=== PATIENT | female | born 1990 ===

== ENCOUNTER 2021-01-17 08:35 | Emergency (ER) | payer MEDICAID, OTHER, SELFPAY ==
--- NOTE | ~2021-01-17 | XR_ITS ---
EXAMINATION: XR CHEST CLINICAL INFORMATION: Fevers and cough. COMPARISON: None TECHNIQUE: Frontal view of the chest was obtained. FINDINGS: No significant abnormality is noted involving the heart, lungs, mediastinum, bony thorax or soft tissues. XR/XR chest 1V IMPRESSION: Unremarkable chest exam.
[2021-01-17 09:35] VITALS: BP 133/97; PULSE 100; RESP 18; TEMP 37.6; O2SAT 100; BMI 50.2
--- NOTE | 2021-01-17 10:42 | ED.URI ---
HPI - URI/Sore Throat General Chief Complaint: Upper Respiratory Symptoms Stated Complaint: flu like symptoms Time Seen by Provider: 01/17/21 09:36 Source: patient Mode of arrival: ambulatory Limitations: no limitations History of Present Illness MD elicited complaint: fever, cough, sore throat and other (Intermittent headaches) Onset (ago): day(s) (Two days) Consistency: constant and progressively worsening Severity: moderate Description of mucous: clear and watery Able to tolerate fluids by mouth: Yes Exacerbating factors: swallowing and deep breaths Relieving factors: nothing Context: recent travel (Here visiting family from outside country) Associated symptoms: denies other symptoms Treatments prior to arrival: none Related Data Allergies Allergy/AdvReac Type Severity Reaction Status Date / Time No Known Allergies Allergy Verified 01/17/21 09:38 Review of Systems Review of Systems: Constitutional : Positive fevers/chills/fatigue/malaise ENT/Mouth : Positive sore throat, No runny nose Eyes: No Discharge Cardiovascular : No Chest Pain, No SOB Respiratory : Positive Cough, No Sputum, No Wheezing, No Smoke Exposure, No Dyspnea Gastrointestinal : No Nausea, No Vomiting, No Diarrhea Genitourinary : No irregular bleeding, No Dysuria, No Urinary Frequency, No Hematuria, No Urinary Incontinence, No Urgency, No Flank Pain, Musculoskeletal : No Myalgia Skin : No rash Neuro : No Headache Yes all other systems are reviewed and are negative [facility] Past Medical History Attestation statement: The following information was validated with the patient. Medical History No known health problems Social History Social History Advance Directives: Yes Advance Directives Information Provided: Yes Advance Directives on File: No Physical Exam Vital Signs: Vital Signs: Last Vital Signs Temp 99.7 F 01/17/21 09:35 Pulse 100 01/17/21 09:35 Resp 18 01/17/21 09:35 BP 133/97 H 01/17/21 09:35 Pulse Ox 100 01/17/21 09:35 Body Mass Index 50.2 vital signs have been reviewed as normal and appeared to be correct. Blood pressure normal. Heart rate normal. Respiration rate normal. Temperature normal. Oxygen saturation normal. Appearance: Alert. Oriented X3. No acute distress. Head: Normal external exam. Normocephalic. Atraumatic. Eyes: PERRLA. EOMI. Conjunctiva and sclera normal. Eyelids normal. ENT: EAC normal. TM's Normal. Pharynx normal. Uvula midline. Moist mucous membranes. No trismus noted. No drooling noted. No muffled voice noted. Neck: Normal inspection. Neck supple. FROM. No adenopathy. Thyroid Normal. No meningeal signs. No neck mass noted. CVS: Normal heart rate and rhythm. Heart sound normal. Pulses normal throughout. No murmurs/rales/gallops. Respiratory: No respiratory distress. Painless inspiration. Breath sounds normal. No wheezes/rales/rhonchi noted. Chest nontender. No accessory muscle usage noted or decreased air movement noted. Back: Full range of motion noted. No rashes/lesion/induration/fluctuance or signs of infection noted. Skin: Skin warm and dry. Normal skin color. Normal skin turgor. No rashes/lesions/lacerations noted. Extremities: Extremities exhibit normal range of motion. Extremities nontender. Neuro: Oriented X 3. No motor deficit. No sensory deficit. Reflexes normal. Normal steady gait. No focal neuro deficits noted. Course Course Course Narrative: 30-year-old female who is visiting from outside country presenting to the ED with complaints of URI symptoms which include intermittent headaches, fevers, chills, fatigue, malaise, body aches and a dry cough for the past 2 days worse today. Denies any sick contacts. On exam patient is alert and oriented x3. Not in any acute distress. Lungs clear to auscultation. CV RRR. Chest x-ray obtained and negative for any acute processes. COVID/RSV/flu/rapid strep pending at this time. Will DC home with symptomatic treatment along with instructions to return if any new or worsening symptoms to self isolate. Patient understands agrees with this plan. MDM - URI/Sore Throat Medical Records Attestation: I reviewed the patient's medical records. Lab Data Attestation: I reviewed the patient's lab results. Imaging Data Chest x-ray: Attestation: I personally reviewed and interpreted this imaging study as follows: Radiologist's impression: FINDINGS: No significant abnormality is noted involving the heart, lungs, mediastinum, bony thorax or soft tissues. XR/XR chest 1V IMPRESSION: Unremarkable chest exam. Discharge Plan Discharge Clinical Impression: Upper respiratory infection Patient Disposition: Home, Self-Care Instructions: Upper Respiratory Infection (ED) Additional Instructions: Based on your symptoms and history we have sent a COVID-19. Although your RESULT IS PENDING at this time. RESULTS should return within 4 hours. At this time you will be contacted with either NEGATIVE OR POSITIVE results. -Please wait until we contact you for your results. At this time you will be okay for discharge. Please plan for self quarantine for up to 14 days. Do not expose yourself to others. You may not go to work. If testing does come back negative you may return to activities as long as you are no longer having any symptoms for at least 3 days. Please continue to follow cold instructions and wash your hands frequently. You may take Tylenol as directed on the bottle for pain or fever. Patient seen in the emergency department on 01/17/2021 and should be excused from work until negative test results AND until 72 hours without any symptoms AND at least 10 days have passed since symptoms first appeared or since last exposure to COVID-19 positive patient CDC Guidelines for home isolation: - Stay away from others - WEAR A MASK if you are sick AND STAY HOME - Cover your mouth and nose with a tissue when you cough or sneeze. Dispose of tissues in a lined trash can and wash your hands immediately with soap and water for at least 20 seconds. If soap and water are not available, clean hands with alcohol-based hand wash oil cooler operator that contains at least 60% alcohol. - Clean your hands often with soap and water for at least 20 seconds - Avoid touching your eyes, nose and mouth with unwashed hands - Do not share dishes, drinking glasses, cups, eating utensils, towels, or bedding with other people in your home. After using these items, wash them thoroughly with soap and water or put in the motion picture critic. - Clean high-touch surfaces in your isolation area ( sick room and bathroom) every day; let a caregiver clean and disinfect high-touch surfaces in other areas of the home. Clean the area or item with soap and water or another detergent if it is dirty. Then, use a household disinfectant. - Limit contact with pets and animals: If you must care for a pet, wash your hands before and after interacting with them). Referrals: Physician,None [Primary Care Provider] - 2 days (your pcp) Stand Alone Forms: Work/School Release Print Language: Sinhala
[2021-01-17] MEDS: Acetaminophen 325 MG TABLET 975 MG PO (11:11)
[2021-01-17 12:00] LABS: Influenza A PCR NEGATIVE (Negative); Influenza B PCR NEGATIVE (Negative); Resp Syncy Virus RNA Qual PCR NEGATIVE (Negative); SARS COV2 PCR INHOUSE POSITIVE (Negative)
[2021-01-17 13:34] LABS: IDNOW Serial# 9DD0AD1C; Strep A Nucleic Acid Negative (Negative)
== END 2021-01-17 11:23 | disposition home or self-care (01) ==
PROVIDERS: Physician Assistant Medical; Emergency Provider Emergency Medicine
DX: U07.1 COVID-19 (principal); J06.9 Acute upper respiratory infection, unspecified; R50.9 Fever, unspecified
CPT/HCPCS: 0241U; 36415; 71045; 87651; 99283

== ENCOUNTER 2021-01-26 11:28 | Outpatient (REF) | payer MEDICAID, OTHER, SELFPAY ==
[2021-01-26 12:33] LABS: COVID-19 Test Positive (Negative)
== END 2021-01-26 11:29 | disposition home or self-care (01) ==
LOC: HO.LAB 11:28
PROVIDERS: Visit Provider Internal Medicine
DX: Z20.822 Contact with and (suspected) exposure to COVID-19 (principal)
CPT/HCPCS: 36415; 87635; C9803

== ENCOUNTER 2021-04-10 10:20 | Emergency (ER) | payer MEDICAID, OTHER, SELFPAY ==
[2021-04-10 11:01] VITALS: BP 120/82; PULSE 92; RESP 18; TEMP 36.7; O2SAT 98; BMI 25.2
[2021-04-10 11:59] LABS: COVID-19 Test Negative (Negative); IDNOW Serial# 9DD0AD1C
--- NOTE | 2021-04-10 12:34 | ED.URI ---
HPI - URI/Sore Throat General Chief Complaint: Upper Respiratory Symptoms Stated Complaint: cold symptoms Time Seen by Provider: 04/10/21 12:15 Source: patient Mode of arrival: ambulatory History of Present Illness HPI Narrative: 30-year-old female presenting to the ED complaining of nasal congestion, rhinorrhea, sore throat, dry cough, headache, subjective fever, myalgias, chest discomfort when coughing since yesterday. Reports sick contacts at home. Denies recent travel, CP, SOB, nausea/vomiting, LE edema, history blood clots, cigarette smoking MD elicited complaint: fever, cough, sore throat, rhinorrhea and nasal congestion Related Data Previous Rx's Medication Instructions Recorded benzonatate 200 mg capsule 200 mg PO TID PRN #20 cap 04/10/21 fluticasone propionate 50 2 spray INTRANASAL DAILY #16 g 04/10/21 mcg/actuation nasal spray,suspension (Flonase Allergy Relief) Allergies Allergy/AdvReac Type Severity Reaction Status Date / Time No Known Allergies Allergy Verified 01/17/21 09:38 Review of Systems Review of Systems: Constitutional: No Fever, No Chills ENT/Mouth: No Ear Pain, + Nasal Congestion, No Sinus Pain, No Hoarseness, + sore throat, + Rhinorrhea, No Swallowing Difficulty Cardiovascular: No Chest Pain, No SOB Respiratory: + Cough, No Sputum, No Wheezing Gastrointestinal: No Nausea, No Vomiting, No Diarrhea, No Abdominal pain Genitourinary: No Dysuria, No Urinary Frequency, No Hematuria, No Flank Pain Musculoskeletal: No joint pain, No Myalgias, No Joint Swelling Skin: No Skin Lesions, No rash Neuro: No Weakness Yes all other systems are reviewed and are negative [facility] Past Medical History Attestation statement: The following information was validated with the patient. Medical History No known health problems Social History Social History Advance Directives: No Advance Directives Information Provided: Yes Patient : No Physical Exam Vital Signs: Vital Signs: Last Vital Signs Temp 98.1 F 04/10/21 11:01 Pulse 92 04/10/21 11:01 Resp 18 04/10/21 11:01 BP 120/82 04/10/21 11:01 Pulse Ox 98 04/10/21 11:01 Body Mass Index 25.2 Const: General: cooperative, healthy appearing and no acute distress Orientation/consciousness: patient oriented x3 Limitations: no limitations HENMT: Head: Yes normal to inspection Ears: hearing grossly normal bilaterally, external ears normal, TM's normal bilaterally and mastoids normal General nose exam: Normal external nose present Face and sinus: Yes normal facial exam Mouth: Normal oral and palatal mucosa present Throat: Yes posterior oropharynx normal, Yes tonsils normal, Yes uvula midline, No peritonsillar mass and No uvular edema Eyes: General: appearance normal, both eyes and all related structures EOM: EOMs intact bilaterally Neck: Neck: Yes normal visual inspection, Yes no lymphadenopathy, Yes no meningeal signs and Yes supple Resp: Effort & Inspection: normal respiratory effort Auscultation: clear to auscultation bilaterally, no rales, no rhonchi and no wheezes Cardio: Rate: regular rate Heart sounds: S1 normal heart sound present and S2 normal heart sound present Skin: Rashes: no rashes Wounds: no wounds Neuro: General: patient oriented x3 and no meningeal signs Gait exam (Neuro): Normal gait present Extrem: General: Yes normal to inspection Course Course Course Narrative: -COVID-19 negative -1317--rapid strep pending at this time. Will call patient with result if positive MDM - URI/Sore Throat MDM Narrative Medical decision making narrative: 30-year-old female presenting to the ED complaining of nasal congestion, rhinorrhea, sore throat, dry cough, headache, subjective fever, myalgias, chest discomfort when coughing since yesterday. On exam vital signs stable, NAD, nontoxic, lungs CTA, TMs WNL, oropharynx WNL. Concern for viral syndrome/COVID-19 versus strep pharyngitis. Low concern for pneumonia, PE, ACS Plan: COVID-19, rapid strep Medical Records Attestation: I reviewed the patient's medical records. Lab Data Attestation: I reviewed the patient's lab results. Labs: Lab Results 04/10/21 04/10/21 Range/Units 11:30 12:32 COVID-19 (LATOYA) Negative (Negative) COVID-19 Clin Com See Note S. pyogenes GrpA KANIKA Negative (Negative) Discharge Plan Discharge Clinical Impression: Upper respiratory infection Qualifiers: URI type: unspecified URI Qualified Code(s): J06.9 - Acute upper respiratory infection, unspecified Patient Disposition: Home, Self-Care Instructions: Upper Respiratory Infection (ED) Additional Instructions: You have a viral syndrome, your rapid strep is pending at this time I will call you with positive results only Please stay hydrated at home. Tessalon Perles for cough, take as needed Flonase as a nasal decongestant Please follow-up with her doctor You tested negative for COVID-19 If her symptoms persist or worsen, he developed fever unresolved with medications, constant worsening cough/shortness breath or chest pain please return to the ED Prescriptions: New benzonatate 200 mg capsule 200 mg PO TID PRN (Reason: cough) Qty: 20 RF: 0 fluticasone propionate [Flonase Allergy Relief] 50 mcg/actuation spray,suspension 2 spray intranasal DAILY Qty: 16 RF: 0 Referrals: Physician,Unknown J [Primary Care Provider] - 2 days Interventions: ED Discharge Assessment Last Done: 04/10/21 13:44 Discharge Date/Time: 04/10/21 13:45
[2021-04-10 14:58] LABS: IDNOW Serial# 9DD0AD1C; Strep A Nucleic Acid Negative (Negative)
== END 2021-04-10 13:45 | disposition home or self-care (01) ==
PROVIDERS: Physician Assistant; Emergency Provider Emergency Medicine
DX: J06.9 Acute upper respiratory infection, unspecified (principal); Z20.822 Contact with and (suspected) exposure to COVID-19
CPT/HCPCS: 36415; 87635; 87651; 99283

== ENCOUNTER 2021-08-28 08:31 | Emergency (ER) | payer MEDICAID, OTHER, SELFPAY ==
--- NOTE | ~2021-08-28 | XR_ITS ---
EXAMINATION: XR CHEST CLINICAL INFORMATION: Shortness of breath and chest pain COMPARISON: 01/17/2021 TECHNIQUE: 2 views of the chest were obtained. FINDINGS: The lungs are well expanded. There is no focal consolidation, edema, or effusion. No pneumothorax. The cardiomediastinal silhouette is within normal limits. No acute osseous abnormality. XR/XR chest 2V IMPRESSION: Clear lungs.
[2021-08-28 09:11] VITALS: BP 130/92; PULSE 93; RESP 18; TEMP 36.6; O2SAT 97; BMI 22.1
--- NOTE | 2021-08-28 09:39 | ECG_ITS ---
Test Reason : ABD PAIN Blood Pressure : / mmHG Vent. Rate : 071 BPM Atrial Rate : 071 BPM P-R Int : 136 ms QRS Dur : 070 ms QT Int : 376 ms P-R-T Axes : 059 037 042 degrees QTc Int : 408 ms Normal sinus rhythm with sinus arrhythmia Normal ECG No previous ECGs available Referred By: Lily Franklin Electronically Signed By:MICHELLE VAZQUEZ MD
--- NOTE | 2021-08-28 09:44 | ED_ITS ---
HPI - Chest Pain General Chief Complaint: Abdominal Pain Stated Complaint: Abd pain/SOB Time Seen by Provider: 08/28/21 09:26 Source: patient Mode of arrival: ambulatory Limitations: no limitations History of Present Illness HPI narrative: 31-year-old female with history of seasonal allergies resents to the ER with sudden onset of lower middle chest pain that started last night. She states that the she got up to use the bathroom in the middle the night she had this constant, sharp, nonradiating pain in the lower portion of her central chest. It is assocated with shortness of breath and anxiety. She reports the pain is 10/10. She denies any abdominal pain, nausea, vomiting. No fever or chills. She had a runny nose a few days ago which she attributed to her seasonal allergies. Otherwise no URI symptoms. She is vaccinated for COVID and the flu. Known sick contacts. She has never had pain like this before. MD complaint: chest pain Onset (ago): day(s) (1) Timing of current episode: constant Prior episodes: No Onset: during rest Pain location: substernal Pain radiation: none Severity: severe Pain scale (0-10): 10 Quality: sharp Relieving factors: nothing Exacerbating factors: nothing Associated symptoms: dyspnea Risk Factors Coronary artery disease risk factors: none Thoracic aortic dissection risk factors: none Related Data On Oral Contraceptives: No Previous Rx's Medication Instructions Recorded benzonatate 200 mg capsule 200 mg PO TID PRN #20 cap 04/10/21 fluticasone propionate 50 2 spray INTRANASAL DAILY #16 g 04/10/21 mcg/actuation nasal spray,suspension (Flonase Allergy Relief) pantoprazole 40 mg tablet,delayed 40 mg PO DAILY #14 tab 08/28/21 release (Protonix) Allergies Allergy/AdvReac Type Severity Reaction Status Date / Time No Known Allergies Allergy Verified 01/17/21 09:38 Review of Systems Review of Systems: Constitutional: No Fever, No Chills ENT/Mouth: No sore throat, No Rhinorrhea, No Swallowing Difficulty Eyes: No Eye Pain, No Swelling, No Redness Cardiovascular: + Chest Pain, + SOB, No Orthopnea, No Edema Respiratory: No Cough, No Sputum, No Wheezing, No dyspnea Gastrointestinal: No Nausea, No Vomiting, No Diarrhea, No abdominal Pain, No Hematochezia, No Melena Genitourinary: No Dysuria, No Urinary Frequency, No Hematuria Musculoskeletal: No joint pain, No Myalgias Skin: No Skin Lesions, No rash Neuro: No Weakness, No Numbness, No Dizziness, No Headache Psych: + Anxiety/Panic, No Depression Heme/Lymph: No Bruising, No Lymphadenopathy Endocrine: No Polyuria, No Polydipsia [facility] Past Medical History Medical History No known health problems Social History Social History Alcohol intake: current Alcohol intake frequency: holidays/special occasions only Alcohol type: beer Patient Tobacco Use Status: Never used Tobacco Use of substances other than those prescribed or required for medical reasons: No Advance Directives: No Patient : No Physical Exam Vital Signs: Vital Signs: Last Vital Signs Temp 98.0 F 08/28/21 11:29 Pulse 77 08/28/21 11:29 Resp 16 08/28/21 11:29 BP 126/86 08/28/21 11:29 Pulse Ox 97 08/28/21 11:29 BMI result Body Mass Index 22.1 Appearance: Alert. Oriented X3. No acute distress. Eyes: Pupils equal, round and reactive to light. ENT: Pharynx normal. Neck: Normal inspection. Neck supple. CVS: Normal heart rate and rhythm. Pulses normal. Tenderness of the distal sternum. Respiratory: No respiratory distress. Breath sounds normal. Abdomen: Soft and nontender. +BS x4 Skin: Skin warm and dry. Normal skin color. Normal skin turgor. No rashes. Extremities: No lower extremity edema. No calf swelling or tenderness. Neuro: Oriented X 3. No motor deficit. No sensory deficit. Course Course Course Narrative: 31 y/o female presenting with 10/10 lower chest pain and SOB that started last night in the middle of the night. No abdominal tenderness. No PE risk factors. Most likely reflex given history and exam - will treat with GI cocktail and reassess. Will check CXR, EKG and basic lab workup. Reevaluation(s) Reevaluation #1: CXR clear. EKG normal. Labs normal. She feels significant improvement after GI cocktail. Will plan to d/c home with PPI and diet modifications. Plan dw patient who is in agreement, stable for d/c home. MDM - Chest Pain Medical Records Data Attestation: I reviewed the patient's medical records. Lab Data Attestation: I reviewed the patient's lab results. Result diagrams: 08/28/21 10:12 08/28/21 10:12 Labs: Lab Results 08/28/21 08/28/21 08/28/21 Range/Units 10:12 10:12 11:28 WBC 8.5 (4.8-10.8) X10*3/uL RBC 4.65 (4.20-5.50) X10*6/uL Hgb 13.4 (12.0-16.0) g/dl Hct 40.7 (37.0-47.0) % MCV 87.5 (80.0-98.0) fL MCH 28.8 (27.0-33.0) pg MCHC 32.9 (31.0-35.0) g/dl RDW 12.0 (11.0-16.0) % Plt Count 297 (160-400) X10*3/uL MPV 10.5 (9.4-12.3) fL Immature Gran % (Auto) 0.5 H (0.0-0.4) % Neut % (Auto) 62.0 (45-73) % Lymph % (Auto) 26.3 (20-40) % [place] % (Auto) 6.5 (2-11) % Eos % (Auto) 4.1 H (0-4) % Baso % (Auto) 0.6 (0-2) % Lymph # (Auto) 2.2 (1.2-4.9) X10*3/uL [place] # (Auto) 0.6 (0.1-1.2) X10*3/uL Eos # (Auto) 0.4 (0.0-0.4) X10*3/uL Baso # (Auto) 0.1 (0.0-0.2) X10*3/uL Abs Immat Gran (auto) 0.04 H (0.00-0.03) X10*3/uL Absolute Neuts (auto) 5.3 (2.0-8.3) x10*3/uL Absolute Nucleated RBC 0.000 (0.0-0.012) X10*3/uL Nucleated RBC % (auto) 0.0 (0.0-0.2) /100WBC Sodium 138 (135-145) mmol/L Potassium 3.9 (3.3-5.1) mmol/L Chloride 107 (96-108) mmol/L Carbon Dioxide 26 (22-29) mmol/L Anion Gap 9 L (12-20) BUN 14 (9-16) mg/dL Creatinine 0.81 (0.5-1.4) mg/dL Estim Creat Clear Calc 73.5 Estimated GFR > 60 Random Glucose 110 (60-115) mg/dL Calcium 9.5 (8.4-10.2) mg/dL Magnesium 2.5 (1.6-2.6) mg/dL Total Bilirubin 0.3 (0.0-1.0) mg/dL Direct Bilirubin < 0.2 (0.0-0.5) mg/dL AST 15 (5-31) U/L ALT 17 (0-31) U/L Alkaline Phosphatase 81 (39-117) U/L Total Protein 7.7 (6.5-8.0) g/dL Albumin 4.3 (3.5-5.0) g/dL Lipase 36 (8-78) U/L Urine Color YELLOW Urine Appearance CLEAR Urine pH 6.0 (5.0-8.0) Ur Specific Cecil >= 1.030 H (1.005-1.025) Urine Protein NEG (NEG-TRACE) MG/DL Urine Glucose (UA) NEG (NEG) MG/DL Urine Ketones NEG (NEG) MG/DL Urine Blood TRACE (NEG) Urine Nitrite NEG (NEG) Ur Leukocyte Esterase NEG (NEG) Urine RBC 0-2 (0) /HPF Urine WBC 0 (0-4) /HPF Ur Squamous Epith Cells 1+ /LPF Urine Bacteria NONE /LPF Urine Test (NEGATIVE) 08/28/21 Range/Units 11:28 WBC (4.8-10.8) X10*3/uL RBC (4.20-5.50) X10*6/uL Hgb (12.0-16.0) g/dl Hct (37.0-47.0) % MCV (80.0-98.0) fL MCH (27.0-33.0) pg MCHC (31.0-35.0) g/dl RDW (11.0-16.0) % Plt Count (160-400) X10*3/uL MPV (9.4-12.3) fL Immature Gran % (Auto) (0.0-0.4) % Neut % (Auto) (45-73) % Lymph % (Auto) (20-40) % [place] % (Auto) (2-11) % Eos % (Auto) (0-4) % Baso % (Auto) (0-2) % Lymph # (Auto) (1.2-4.9) X10*3/uL [place] # (Auto) (0.1-1.2) X10*3/uL Eos # (Auto) (0.0-0.4) X10*3/uL Baso # (Auto) (0.0-0.2) X10*3/uL Abs Immat Gran (auto) (0.00-0.03) X10*3/uL Absolute Neuts (auto) (2.0-8.3) x10*3/uL Absolute Nucleated RBC (0.0-0.012) X10*3/uL Nucleated RBC % (auto) (0.0-0.2) /100WBC Sodium (135-145) mmol/L Potassium (3.3-5.1) mmol/L Chloride (96-108) mmol/L Carbon Dioxide (22-29) mmol/L Anion Gap (12-20) BUN (9-16) mg/dL Creatinine (0.5-1.4) mg/dL Estim Creat Clear Calc Estimated GFR Random Glucose (60-115) mg/dL Calcium (8.4-10.2) mg/dL Magnesium (1.6-2.6) mg/dL Total Bilirubin (0.0-1.0) mg/dL Direct Bilirubin (0.0-0.5) mg/dL AST (5-31) U/L ALT (0-31) U/L Alkaline Phosphatase (39-117) U/L Total Protein (6.5-8.0) g/dL Albumin (3.5-5.0) g/dL Lipase (8-78) U/L Urine Color Urine Appearance Urine pH (5.0-8.0) Ur Specific Cecil (1.005-1.025) Urine Protein (NEG-TRACE) MG/DL Urine Glucose (UA) (NEG) MG/DL Urine Ketones (NEG) MG/DL Urine Blood (NEG) Urine Nitrite (NEG) Ur Leukocyte Esterase (NEG) Urine RBC (0) /HPF Urine WBC (0-4) /HPF Ur Squamous Epith Cells /LPF Urine Bacteria /LPF Urine Test NEGATIVE (NEGATIVE) ECG Data ECG #1: Attestation: I personally reviewed and interpreted this ECG as follows: ECG interpretation date: 08/28/21 Prior ECG tracings: not available for review Interpretation: normal sinus rhythm with sinus arrhythmia, HR 71 bpm, normal IL interval, normal QTc, no ST segment elevations or depressions. Critical Care Time Critical Care Time Critical Care Time: No Discharge Plan Discharge Clinical Impression: GERD (gastroesophageal reflux disease) Patient Disposition: Home, Self-Care Instructions: Gastroesophageal Reflux Disease (DC) Additional Instructions: your workup today was normal your chest x-ray was normal your pain was most likely due to acid from your stomach going up into your esophagus and causing pain Start taking the prescribed medication as directed for this. Stick to a bland diet. Avoid foods high in acid, avoid alcohol and NSAID medications like Aleve, Motrin, Advil or ibuprofen. Follow up with your doctor as needed. Follow up with GI doctor if you symptoms persist despite dietary modifications and medication. If you develop new or worsening symptoms call 911 or come back to the ER for further evaluation. Prescriptions: New pantoprazole [Protonix] 40 mg tablet,delayed release (DR/EC) 40 mg PO DAILY Qty: 14 0RF No Action benzonatate 200 mg capsule 200 mg PO TID PRN (Reason: cough) Qty: 20 0RF fluticasone propionate [Flonase Allergy Relief] 50 mcg/actuation spray,suspension 2 spray intranasal DAILY Qty: 16 0RF Rx Instructions: administer into each nostril Interventions: ED Discharge Assessment Last Done: 08/28/21 12:03 Discharge Date/Time: 08/28/21 12:04
[2021-08-28] MEDS: Lidocaine HCl Viscous 2 % 15 ML SOLUTION MUCOUS MEM (10:04)
[2021-08-28] MEDS: PHENobarb/Hyoscy/Atropine/Scop 10 ML ELIXIR PO (10:04)
[2021-08-28] MEDS: Magnesium Hydrox/Alum Hydrox 30 ML ORAL.SUSP PO (10:04)
[2021-08-28 10:17] LABS: MANUAL DIFF FLAG NO
[2021-08-28 10:18] LABS: Basophils Absolute Auto 0.1 X10*3/uL (0.0-0.2); Basophils Percent Auto 0.6 % (0-2); Eosinophils Absolute Auto 0.4 X10*3/uL (0.0-0.4); Eosinophils Percent Auto 4.1 % (0-4); Hematocrit 40.7 % (37.0-47.0); Hemoglobin 13.4 g/dl (12.0-16.0); Imm Gran Abs Auto 0.04 X10*3/uL (0.00-0.03); Imm Gran Pct Auto 0.5 % (0.0-0.4); Lymphocytes Absolute Auto 2.2 X10*3/uL (1.2-4.9); Lymphocytes Percent Auto 26.3 % (20-40); Mean Corpuscular HGB Conc 32.9 g/dl (31.0-35.0); Mean Corpuscular Hemoglobin 28.8 pg (27.0-33.0); Mean Corpuscular Volume 87.5 fL (80.0-98.0); Mean Platelet Volume 10.5 fL (9.4-12.3); Monocytes Absolute Auto 0.6 X10*3/uL (0.1-1.2); Monocytes Percent Auto 6.5 % (2-11); Neutrophils Absolute Auto 5.3 x10*3/uL (2.0-8.3); Platelet Count 297 X10*3/uL (160-400); Red Blood Count 4.65 X10*6/uL (4.20-5.50); White Blood Count 8.5 X10*3/uL (4.8-10.8)
[2021-08-28 10:36] LABS: Alanine Aminotransferase 17 U/L (0-31); Albumin Level 4.3 g/dL (3.5-5.0); Alkaline Phosphatase 81 U/L (39-117); Anion Gap 9 (12-20); Aspartate Amino Transferase 15 U/L (5-31); Bilirubin Direct < 0.2 mg/dL (0.0-0.5); Bilirubin Total 0.3 mg/dL (0.0-1.0); Blood Urea Nitrogen 14 mg/dL (9-16); Calcium 9.5 mg/dL (8.4-10.2); Carbon Dioxide 26 mmol/L (22-29); Chloride 107 mmol/L (96-108); Creatinine Clr Calc Pharmacy 73.5; Estimated Glomerular Filt Rate > 60; Glucose Random 110 mg/dL (60-115); Lipase 36 U/L (8-78); Magnesium 2.5 mg/dL (1.6-2.6); Potassium 3.9 mmol/L (3.3-5.1); Sodium 138 mmol/L (135-145); Total Protein 7.7 g/dL (6.5-8.0)
[2021-08-28 11:29] VITALS: BP 126/86; PULSE 77; RESP 16; TEMP 36.7; O2SAT 97
--- NOTE | 2021-08-28 11:36 | PC.NURSE ---
pt a&ox3, vss, pt reports abd pain mostly resolved - now 2/10. resting comfortably. urine sample collected and sent to lab. no new orders at this time.
[2021-08-28 11:39] LABS: Appearance Urine CLEAR; Color Urine YELLOW; Glucose Urine UA NEG (NEG); Leukocyte Esterase Urine NEG (NEG); Nitrite Urine NEG (NEG); Specific Gravity - Urine >= 1.030 (1.005-1.025); UACC Culture Trigger NO; Urine Blood TRACE (NEG); Urine Ketones NEG (NEG); Urine Protein NEG (NEG-TRACE)
[2021-08-28 11:42] LABS: UPreg QC Valid YES; Urine Pregnancy NEGATIVE (NEGATIVE)
[2021-08-28 12:24] LABS: RBC Urine 0-2 /HPF (0); Squamous Epithelial Cell Urine 1+ /LPF; WBC Urine 0 /HPF (0-4)
== END 2021-08-28 12:04 | disposition home or self-care (01) ==
PROVIDERS: Physician Assistant; Emergency Provider Emergency Medicine
DX: K21.9 Gastro-esophageal reflux disease without esophagitis (principal); R06.02 Shortness of breath
CPT/HCPCS: 36415; 71046; 80048; 80076; 81001; 81025; 83690; 83735; 85025; 93005; 99283; 99285

== ENCOUNTER 2021-10-13 11:07 | Emergency (ER) | payer MEDICAID, OTHER, SELFPAY ==
--- NOTE | ~2021-10-13 | XR_ITS ---
EXAMINATION: XR CHEST CLINICAL INFORMATION: Cough with chest wall pain. COMPARISON: 08/29/2019 chest radiographs. TECHNIQUE: 2 views of the chest were obtained. FINDINGS: No significant abnormality is noted involving the heart, lungs, mediastinum, bony thorax or soft tissues. XR/XR chest 2V IMPRESSION: No acute cardiopulmonary process.
[2021-10-13 11:12] VITALS: BP 131/88; PULSE 96; RESP 18; TEMP 36.8; O2SAT 98; BMI 22.4
[2021-10-13 11:56] LABS: COVID-19 Test Negative (Negative); IDNOW Serial# 08D9AD1C
[2021-10-13 12:08] LABS: IDNOW Serial# 08D9AD1C; Influenza A Negative (Negative); Influenza B2 Negative (Negative)
--- NOTE | 2021-10-13 12:22 | ED_ITS ---
HPI - Nausea/Vomiting/Diarrhea General Chief complaint: Upper Respiratory Symptoms Stated complaint: Abd pain/vomiting Time Seen by Provider: 10/13/21 12:05 Source: patient Mode of arrival: ambulatory Limitations: no limitations History of Present Illness HPI Narrative: 31-year-old female with a past medical history of seasonal allergies who was seen here on 08/28/2021 and diagnosed with GERD prescribed Protonix 40 mg daily who reports she was taking as prescribed presenting to the ED with complaints of needing a refill of the Protonix due to she ran out and since last night she has been having this mid sternal chest burning sensation that she had when she came here on 08/28/2021. She reports that they gave her a drink while she was here in the ER and it worked really well. She reports she was not having any symptoms while she was on the Protonix although she is no longer on the Protonix due to she ran out. She denies any fevers, chills, dizziness, headaches, neck pain/stiffness, trouble swallowing or breathing, chest pain, dyspnea on exertion, orthopnea, sore throat, sputum production, trouble swallowing or breathing, abdominal pain, back pain, dysuria, hematuria, abnormal vaginal discharge, rashes, recent travel or sick contacts, others with similar symptoms or any other symptoms complaints or concerns at this time. MD elicited complaint: nausea, vomiting and other (Burning sensation to the chest area) Pertinent past history: other (See above) Onset (ago): day(s) (Since last night) Description of vomiting: watery and bilious Associated nausea: Yes Associated abdominal pain: No Location of pain: chest and epigastric Radiation: does not radiate Pain consistency: constant Severity: mild Quality: constant (Burning sensation) Exacerbating factors: none Relieving factors: none Context: other (GERD) Associated symptoms: denies other symptoms Treatment prior to arrival: none Related Data Previous Rx's Medication Instructions Recorded benzonatate 200 mg capsule 200 mg PO TID PRN #20 cap 04/10/21 fluticasone propionate 50 2 spray INTRANASAL DAILY #16 g 04/10/21 mcg/actuation nasal spray,suspension (Flonase Allergy Relief) pantoprazole 40 mg tablet,delayed 40 mg PO DAILY #14 tab 08/28/21 release (Protonix) ondansetron 4 mg disintegrating 4 mg PO Q8H PRN #14 tab 10/13/21 tablet pantoprazole 40 mg tablet,delayed 40 mg PO DAILY #30 tab 10/13/21 release (Protonix) Allergies Allergy/AdvReac Type Severity Reaction Status Date / Time No Known Allergies Allergy Verified 10/13/21 11:20 Review of Systems Review of Systems: Constitutional : No Weight loss, No Fever, No Chills, No Night Sweats, No Fatigue, No Malaise ENT/Mouth : No Hearing loss, No Ear Pain, No Nasal Congestion, No Sinus Pain, No Hoarseness, No sore throat, No Rhinorrhea, No Swallowing Difficulty Eyes: No Eye Pain, No Swelling, No Redness, No Foreign Body, No Discharge, No Vision Changes Cardiovascular : No Chest Pain, No SOB, No Dyspnea on Exertion, No Orthopnea, No Edema, No Palpitations Respiratory : No Cough, No Sputum, No Wheezing, No Smoke Exposure, No Dyspnea Gastrointestinal : + nausea/vomiting due to acid reflux per patient, No Diarrhea, No Constipation, No abdominal Pain, No Hematochezia, No Melena Genitourinary : no irregular bleeding, No Dysuria, No Urinary Frequency, No Hematuria, No Urinary Incontinence, No Urgency, No Flank Pain, No Urinary Flow Changes, No Hesitancy Musculoskeletal : No joint pain, No Myalgias, No Joint Swelling Skin : No Skin Lesions, No rash Neuro : No Weakness, No Numbness, No Paresthesias, No Loss of Consciousness, No Dizziness, No Headache Psych : No Anxiety/Panic, No Depression, No SI/HI/AH/VH, No Social Issues, Heme/Lymph: No Bruising, No Bleeding,No Lymphadenopathy Endocrine : No Polyuria, No Polydipsia, No Temperature Intolerance Yes all other systems are reviewed and are negative Gastrointestinal: Gastrointestinal: Reports nausea PMFSH Past Medical History Attestation statement: The following information was validated with the patient. Medical History No known health problems Social History Social History Alcohol intake: current Alcohol intake frequency: holidays/special occasions only Alcohol type: beer Patient Tobacco Use Status: Never used Tobacco Advance Directives: No Advance Directives Information Provided: No Physical Exam Vital Signs: Vital Signs: Last Vital Signs Temp 98.3 F 10/13/21 11:12 Pulse 96 10/13/21 11:12 Resp 18 10/13/21 11:12 BP 131/88 10/13/21 11:12 Pulse Ox 98 10/13/21 11:12 BMI result Body Mass Index 22.4 vital signs have been reviewed as normal and appeared to be correct. Blood pressure normal. Heart rate normal. Respiration rate normal. Temperature normal. Oxygen saturation normal. Appearance: Alert. Oriented X3. No acute distress. Head: Normal external exam. Normocephalic. Atraumatic. Eyes: PERRLA. EOMI. Conjunctiva and sclera normal. Eyelids normal. ENT: Pharynx normal. Uvula midline. Moist mucous membranes. No lesions/ulcerations or masses noted on the tongue. Normal voice. No trismus noted. No drooling noted. No muffled voice noted. Neck: Normal inspection. Neck supple. FROM. No adenopathy. Thyroid Normal. No tracheal deviation noted. No crepitus is noted. No meningeal signs. No neck mass noted. No signs of trauma noted. CVS: Normal heart rate and rhythm. Heart sound normal. Pulses normal throughout. No murmurs/rales/gallops. Respiratory: No respiratory distress. Painless inspiration. Breath sounds normal. No wheezes/rales/rhonchi noted. Chest nontender. No crepitus is noted. No signs of trauma noted. No accessory muscle usage noted or decreased air movement noted. No signs of trauma. Abdomen: Soft and nontender. Bowel sounds normal in all 4 quadrants. No distention noted. No organomegaly noted. No visible injury noted. Back: No CVA tenderness. Full range of motion noted. Nontender. No signs of trauma. Patient neuro intact bilaterally and distally on all 4 extremities. Patient's reflexes intact bilaterally and distally on all 4 extremities. No rashes/lesion/induration/fluctuance or signs of infection noted. Skin: Skin warm and dry. Normal skin color. Normal skin turgor. No rashes/lesions/lacerations noted. Extremities: Extremities exhibit normal range of motion and nontender. Neuro: Oriented X 3. No motor deficit. No sensory deficit. Reflexes normal. Normal steady gait. No focal neuro deficits noted. CN's II-XII intact bilaterally? Vascular: + radial pulses/+ 2 distal pedal pulses/+2 dorsalis pedis b/l. Normal cap refill. No cyanosis noted to upper extremity nails and lower extremity toes nails. Course Course Course Narrative: 12:30pm - 31-year-old female with a past medical history of seasonal allergies who was seen here on 08/28/2021 and diagnosed with GERD prescribed Protonix 40 mg daily who reports she was taking as prescribed presenting to the ED with complaints of needing a refill of the Protonix due to she ran out and since last night she has been having this mid sternal chest burning sensation that she had when she came here on 08/28/2021. She reports that they gave her a drink while she was here in the ER and it worked really well. She reports she was not having any symptoms while she was on the Protonix although she is no longer on the Protonix due to she ran out. Patient reports that this is the same pain she had last time that this is her acid reflux and she just needs a refill and she would like the GI cocktail. I did offer labs and imaging to rule out any cardiac related issues although patient reports she knows this is not her heart if this is the same pain and the Protonix worked well therefore at this time patient is declining any labs an EKG. I did review her last visit it appears that the patient had the same complaint. Therefore at this time will give a GI cocktail and DC home with Protonix and instructions to follow-up with her PCP for further evaluation treatment and further refills. Patient understands agrees with this plan. MDM - Nausea/Vomiting/Diarrhea Medical Records Attestation: I reviewed the patient's medical records. Lab Data Attestation: I reviewed the patient's lab results. Labs: Lab Results 10/13/21 10/13/21 Range/Units 11:23 11:23 COVID-19 (LATOYA) Negative (Negative) COVID-19 Clin Com See Note Influenza Type A (KANIKA) Negative (Negative) Influenza Type B (KANIKA) Negative (Negative) Influenza A & B Note See Note Imaging Data Chest x-ray: Attestation: I personally reviewed and interpreted this imaging study as follows: Radiologist's impression: FINDINGS: No significant abnormality is noted involving the heart, lungs, mediastinum, bony thorax or soft tissues. XR/XR chest 2V IMPRESSION: No acute cardiopulmonary process. Discharge Plan Discharge Clinical Impression: GERD (gastroesophageal reflux disease), Medication refill Patient Disposition: Home, Self-Care Instructions: Gastroesophageal Reflux Disease (ED), Medicine Refill (ED) Prescriptions: New pantoprazole [Protonix] 40 mg tablet,delayed release (DR/EC) 40 mg PO DAILY Qty: 30 0RF ondansetron 4 mg tablet,disintegrating 4 mg PO Q8H PRN (Reason: N/V) Qty: 14 0RF No Action benzonatate 200 mg capsule 200 mg PO TID PRN (Reason: cough) Qty: 20 0RF fluticasone propionate [Flonase Allergy Relief] 50 mcg/actuation spray,suspension 2 spray intranasal DAILY Qty: 16 0RF Rx Instructions: administer into each nostril pantoprazole [Protonix] 40 mg tablet,delayed release (DR/EC) 40 mg PO DAILY Qty: 14 0RF Referrals: Physician,None [Primary Care Provider] - 2 days (your pcp) Print Language: Cambodian
[2021-10-13] MEDS: Magnesium Hydrox/Alum Hydrox 30 ML ORAL.SUSP PO (12:46)
[2021-10-13] MEDS: Lidocaine HCl Viscous 2 % 15 ML SOLUTION MUCOUS MEM (12:46)
[2021-10-13] MEDS: PHENobarb/Hyoscy/Atropine/Scop 10 ML ELIXIR PO (12:46)
== END 2021-10-13 13:04 | disposition home or self-care (01) ==
PROVIDERS: Emergency Provider Emergency Medicine Emergency Medical Services
DX: Z76.0 Encounter for issue of repeat prescription (principal); K21.9 Gastro-esophageal reflux disease without esophagitis; Z91.09 Other allergy status, other than to drugs and biological substances; Z20.822 Contact with and (suspected) exposure to COVID-19
CPT/HCPCS: 71046; 87502; 87635; 99283

== ENCOUNTER 2021-11-01 21:38 | Emergency (ER) | payer MEDICAID, OTHER, SELFPAY ==
--- NOTE | ~2021-11-01 | XR_ITS ---
EXAMINATION: XR CHEST CLINICAL INFORMATION: Chest pain COMPARISON: 10/13/2021 TECHNIQUE: 2 views of the chest were obtained. FINDINGS: No significant abnormality is noted involving the heart, lungs, mediastinum, bony thorax or soft tissues. XR/XR chest 2V IMPRESSION: No acute pulmonary disease.
[2021-11-01 21:53] VITALS: BP 119/60; PULSE 81; RESP 18; TEMP 37; O2SAT 96; BMI 28.1
[2021-11-01 22:04] LABS: MANUAL DIFF FLAG NO
[2021-11-01 22:05] LABS: Basophils Absolute Auto 0.1 X10*3/uL (0.0-0.2); Basophils Percent Auto 0.6 % (0-2); Eosinophils Absolute Auto 0.4 X10*3/uL (0.0-0.4); Eosinophils Percent Auto 3.9 % (0-4); Hematocrit 38.7 % (37.0-47.0); Hemoglobin 12.7 g/dl (12.0-16.0); Imm Gran Abs Auto 0.03 X10*3/uL (0.00-0.03); Imm Gran Pct Auto 0.3 % (0.0-0.4); Lymphocytes Absolute Auto 2.9 X10*3/uL (1.2-4.9); Lymphocytes Percent Auto 32.4 % (20-40); Mean Corpuscular HGB Conc 32.8 g/dl (31.0-35.0); Mean Corpuscular Hemoglobin 28.5 pg (27.0-33.0); Mean Platelet Volume 11.2 fL (9.4-12.3); Monocytes Absolute Auto 0.5 X10*3/uL (0.1-1.2); Monocytes Percent Auto 5.9 % (2-11); Neutrophils Absolute Auto 5.2 x10*3/uL (2.0-8.3); Neutrophils Percent Auto 56.9 % (45-73); Platelet Count 288 X10*3/uL (160-400); Red Blood Count 4.45 X10*6/uL (4.20-5.50); Red Cell Distribution Width 12.2 % (11.0-16.0)
[2021-11-01 22:23] LABS: Alanine Aminotransferase 14 U/L (0-31); Albumin Level 4.2 g/dL (3.5-5.0); Alkaline Phosphatase 80 U/L (39-117); Anion Gap 12 (12-20); Aspartate Amino Transferase 16 U/L (5-31); Bilirubin Direct < 0.2 mg/dL (0.0-0.5); Bilirubin Total 0.3 mg/dL (0.0-1.0); Blood Urea Nitrogen 11 mg/dL (9-16); Calcium 9.3 mg/dL (8.4-10.2); Carbon Dioxide 26 mmol/L (22-29); Chloride 107 mmol/L (96-108); Creatinine Clr Calc Pharmacy 63.6; Estimated Glomerular Filt Rate > 60; Glucose Random 83 mg/dL (60-115); Potassium 4.2 mmol/L (3.3-5.1); Sodium 141 mmol/L (135-145); Total Protein 7.5 g/dL (6.5-8.0)
[2021-11-01 23:45] VITALS: RESP 16
[2021-11-01 23:50] VITALS: BP 139/95; PULSE 75; RESP 16; TEMP 36.7; O2SAT 98
--- NOTE | 2021-11-01 23:50 | ED.GENADULT ---
HPI - General Adult General Chief complaint: Abdominal Pain Stated complaint: abd pain Time Seen by Provider: 11/01/21 23:29 Source: patient Mode of arrival: ambulatory Limitations: no limitations History of Present Illness HPI narrative: Patient is a 31 year old female presenting to the emergency department today with chest pain. Patient states that she was around smokers earlier today and began to have chest tightness. Patient denies any dizziness, lightheadedness, abdominal pain, nausea, vomiting, fever, chills, blurry vision, double vision, loss of vision, difficulty breathing, shortness of breath, back pain, night sweats, pain with urination, increased urinary frequency, increased urinary urgency, blood in her urine or stool, syncope or a near syncopal episode, recent trauma or falls, bowel incontinence, bladder incontinence, bowel retention, bladder retention, or any other complaints at this time. Onset (ago): hour(s) Location: chest Radiation: non-radiation Severity: mild Severity scale (1-10): 1 Quality: dull Pain Consistency: constant Relieving factors: none Exacerbating factors: none Associated symptoms: denies other symptoms Treatments prior to arrival: none Related Data Previous Rx's Medication Instructions Recorded benzonatate 200 mg capsule 200 mg PO TID PRN cough #20 caps 04/10/21 fluticasone propionate 50 2 spray intranasal DAILY #16 grams 04/10/21 mcg/actuation nasal spray,suspension (Flonase Allergy Relief) pantoprazole 40 mg tablet,delayed 40 mg PO DAILY #14 tabs 08/28/21 release (Protonix) ondansetron 4 mg disintegrating 4 mg PO Q8H PRN N/V #14 tabs 10/13/21 tablet pantoprazole 40 mg tablet,delayed 40 mg PO DAILY GERD #30 tabs 10/13/21 release (Protonix) Allergies Allergy/AdvReac Type Severity Reaction Status Date / Time No Known Allergies Allergy Verified 10/13/21 11:20 Review of Systems Constitutional: Constitutional: Reports no additional constitutional complaints, Denies chills, Denies fever(s) and Denies night sweats Eyes: Eyes: Reports no additional eye complaints, Denies blurry vision, Denies change in vision, Denies diplopia, Denies eye discharge, Denies loss of vision and Denies eye pain ENT: Denies dizziness Cardiovascular: Cardiovascular: Reports no additional cardiovascular complaints, Reports chest pain, Denies lightheadedness, Denies Loss of Consciousness and Denies dyspnea Respiratory: Respiratory: Reports no additional respiratory complaints and Denies dyspnea Gastrointestinal: Gastrointestinal: Reports no additional gastrointestinal complaints, Denies abdominal pain, Denies melena, Denies hematochezia, Denies change in bowel habits and Denies change in stool character Genitourinary: Genitourinary: Denies hematuria, Denies urinary frequency, Denies dysuria, Denies urinary incontinence, Denies urinary hesitancy and Denies urinary urgency Musculoskeletal: Musculoskeletal: Reports no additional musculoskeletal complaints, Denies numbness and Denies tingling Neurologic: Denies dizziness, Denies loss of vision, Denies numbness and Denies tingling Psychiatric: Psychiatric: Reports no additional psychiatric complaints Endocrine: Endocrine: Reports no additional endocrine complaints Hematologic/Lymphatic: Hematologic/Lymphatic: Reports no additional hematologic/lymphatic complaints Allergic/Immunologic: Allergic/Immunologic: Reports no additional allergic/immunologic complaints PMFSH Past Medical History Attestation statement: The following information was validated with the patient. Source: old records reviewed Medical History No known health problems Social History Social History Alcohol intake: current Alcohol intake frequency: holidays/special occasions only Alcohol type: beer Patient Tobacco Use Status: Never used Tobacco Advance Directives: No Physical Exam ED Vital Signs: Vital Signs - 24 hr 11/01/21 21:53 11/01/21 23:45 11/01/21 23:50 Temperature 98.6 F 98.1 F Pulse Rate 81 75 Respiratory Rate 18 16 16 Blood Pressure 119/60 139/95 H Pulse Oximetry 96 98 Oxygen Delivery Method Room Air Room Air 11/02/21 00:05 Temperature Pulse Rate 74 Respiratory Rate 16 Blood Pressure Pulse Oximetry Oxygen Delivery Method BMI result Body Mass Index 28.1 Const General: cooperative, no acute distress, alert and awake Nutritional Appearance: well nourished Orientation/consciousness: patient oriented x3 Limitations: no limitations HENMT Head: Yes normal to inspection and Yes atraumatic Ears: hearing grossly normal bilaterally and external ears normal General nose exam: Normal external nose present, no nasal discharge noted and no epistaxis Face and sinus: Yes normal facial exam, No abrasion and No laceration Mouth: Normal oral and palatal mucosa present, no drooling and no muffled voice Eyes General: appearance normal, both eyes and all related structures Periorbital: periorbital findings normal Eyelids: Yes eyelids normal Conjunctivae: conjunctivae normal Pupils: Equal, round and reactive pupils present EOM: EOMs intact bilaterally Neck Neck: Yes normal visual inspection, Yes full ROM and Yes no lymphadenopathy Chest Chest palpation & inspection: normal inspection of the chest Resp Effort & Inspection: normal respiratory effort and able to speak in complete sentences Auscultation: diminished lung sounds bilateral Cardio Rate: regular rate Rhythm: regular rhythm GI Inspection: Yes normal to inspection Neuro General: patient oriented x3 and moves all extremities Cranial nerves: Yes Equal, round and reactive pupils present Cognition (Neuro): normal cognition Motor exam (neuro): 5/5 motor strength present throughout Sensory Exam: Normal double simultaneous stimulation for sensation Coordination: [id number] test normal Extrem General: Yes normal to inspection, Yes full ROM and Yes capillary refill normal Psych Appearance: grossly normal Mental Status: mental status grossly normal Affect: normal affect Attitude: cooperative Thought process: Normal thought process present Thought content: Normal thought content present Insight: Good insight present (Psych) Medical Decision Making MDM Narrative Medical decision making narrative: Patient is a 31 year old female presenting to the emergency department today with chest pain. Patient's physical exam showed diminished lung sounds bilaterally. Patient's blood work was unremarkable. Patient's urine showed no acute process. Patient's EKG was unremarkable. Patient's chest x-ray showed no acute process. Patient was not hypoxic or tachycardic, therefore I was not suspicious for PE. I explained my physical exam findings as well as all test results to the patient. I answered all questions asked by the patient. Patient received IM Decadron and a duoneb breathing treatment which she stated helped her symptoms significantly. I stressed the importance of the patient taking her medication as prescribed. I stressed the importance of the patient following up with her primary care provider. I stressed the importance of the patient returning to the emergency department immediately if her symptoms were to worsen or if she were to develop any dizziness, shortness of breath, difficulty breathing, chest pain, blurry vision, loss of vision, nausea, vomiting, abdominal pain, fever, chills, back pain, or any other complaints. Patient verbalized agreement and understanding with this treatment plan and discharge. Differential Diagnosis Differential Diagnosis: atypical chest pain, anxiety, reactive airway disease Medical Records Medical records reviewed: Yes I reviewed the patient's medical records. Lab Data Lab results reviewed: Yes I reviewed the patient's lab results. Result diagrams: 11/01/21 21:58 11/01/21 21:58 Labs: Lab Results 11/01/21 11/01/21 11/01/21 Range/Units 21:58 21:58 21:58 WBC 9.0 (4.8-10.8) X10*3/uL RBC 4.45 (4.20-5.50) X10*6/uL Hgb 12.7 (12.0-16.0) g/dl Hct 38.7 (37.0-47.0) % MCV 87.0 (80.0-98.0) fL MCH 28.5 (27.0-33.0) pg MCHC 32.8 (31.0-35.0) g/dl RDW 12.2 (11.0-16.0) % Plt Count 288 (160-400) X10*3/uL MPV 11.2 (9.4-12.3) fL Immature Gran % (Auto) 0.3 (0.0-0.4) % Neut % (Auto) 56.9 (45-73) % Lymph % (Auto) 32.4 (20-40) % [place] % (Auto) 5.9 (2-11) % Eos % (Auto) 3.9 (0-4) % Baso % (Auto) 0.6 (0-2) % Lymph # (Auto) 2.9 (1.2-4.9) X10*3/uL [place] # (Auto) 0.5 (0.1-1.2) X10*3/uL Eos # (Auto) 0.4 (0.0-0.4) X10*3/uL Baso # (Auto) 0.1 (0.0-0.2) X10*3/uL Abs Immat Gran (auto) 0.03 (0.00-0.03) X10*3/uL Absolute Neuts (auto) 5.2 (2.0-8.3) x10*3/uL Absolute Nucleated RBC 0.000 (0.0-0.012) X10*3/uL Nucleated RBC % (auto) 0.0 (0.0-0.2) /100WBC Sodium 141 (135-145) mmol/L Potassium 4.2 (3.3-5.1) mmol/L Chloride 107 (96-108) mmol/L Carbon Dioxide 26 (22-29) mmol/L Anion Gap 12 (12-20) BUN 11 (9-16) mg/dL Creatinine 0.84 (0.5-1.4) mg/dL Estim Creat Clear Calc 63.6 Estimated GFR > 60 Random Glucose 83 (60-115) mg/dL Calcium 9.3 (8.4-10.2) mg/dL Total Bilirubin 0.3 (0.0-1.0) mg/dL Direct Bilirubin < 0.2 (0.0-0.5) mg/dL AST 16 (5-31) U/L ALT 14 (0-31) U/L Alkaline Phosphatase 80 (39-117) U/L Troponin I High Sens < 3.5 (<3.5-17.0) ng/L B-Natriuretic Peptide 23 (<100) pg/mL Total Protein 7.5 (6.5-8.0) g/dL Albumin 4.2 (3.5-5.0) g/dL Urine Color Urine Appearance Urine pH (5.0-8.0) Ur Specific [place] (1.005-1.025) Urine Protein (NEG-TRACE) MG/DL Urine Glucose (UA) (NEG) MG/DL Urine Ketones (NEG) MG/DL Urine Blood (NEG) Urine Nitrite (NEG) Ur Leukocyte Esterase (NEG) Urine Test (NEGATIVE) 11/01/21 11/01/21 Range/Units 23:54 23:54 WBC (4.8-10.8) X10*3/uL RBC (4.20-5.50) X10*6/uL Hgb (12.0-16.0) g/dl Hct (37.0-47.0) % MCV (80.0-98.0) fL MCH (27.0-33.0) pg MCHC (31.0-35.0) g/dl RDW (11.0-16.0) % Plt Count (160-400) X10*3/uL MPV (9.4-12.3) fL Immature Gran % (Auto) (0.0-0.4) % Neut % (Auto) (45-73) % Lymph % (Auto) (20-40) % [place] % (Auto) (2-11) % Eos % (Auto) (0-4) % Baso % (Auto) (0-2) % Lymph # (Auto) (1.2-4.9) X10*3/uL [place] # (Auto) (0.1-1.2) X10*3/uL Eos # (Auto) (0.0-0.4) X10*3/uL Baso # (Auto) (0.0-0.2) X10*3/uL Abs Immat Gran (auto) (0.00-0.03) X10*3/uL Absolute Neuts (auto) (2.0-8.3) x10*3/uL Absolute Nucleated RBC (0.0-0.012) X10*3/uL Nucleated RBC % (auto) (0.0-0.2) /100WBC Sodium (135-145) mmol/L Potassium (3.3-5.1) mmol/L Chloride (96-108) mmol/L Carbon Dioxide (22-29) mmol/L Anion Gap (12-20) BUN (9-16) mg/dL Creatinine (0.5-1.4) mg/dL Estim Creat Clear Calc Estimated GFR Random Glucose (60-115) mg/dL Calcium (8.4-10.2) mg/dL Total Bilirubin (0.0-1.0) mg/dL Direct Bilirubin (0.0-0.5) mg/dL AST (5-31) U/L ALT (0-31) U/L Alkaline Phosphatase (39-117) U/L Troponin I High Sens (<3.5-17.0) ng/L B-Natriuretic Peptide (<100) pg/mL Total Protein (6.5-8.0) g/dL Albumin (3.5-5.0) g/dL Urine Color YELLOW Urine Appearance CLEAR Urine pH 6.0 (5.0-8.0) Ur Specific [place] 1.025 (1.005-1.025) Urine Protein NEG (NEG-TRACE) MG/DL Urine Glucose (UA) NEG (NEG) MG/DL Urine Ketones NEG (NEG) MG/DL Urine Blood 2+ H (NEG) Urine Nitrite NEG (NEG) Ur Leukocyte Esterase NEG (NEG) Urine Test NEGATIVE (NEGATIVE) Imaging Data Chest x-ray: Attestation: I personally reviewed and interpreted this imaging study as follows: My impression: No acute process. Radiologist's impression: EXAMINATION: XR CHEST CLINICAL INFORMATION: Chest pain COMPARISON: 10/13/2021 TECHNIQUE: 2 views of the chest were obtained. FINDINGS: No significant abnormality is noted involving the heart, lungs, mediastinum, bony thorax or soft tissues. XR/XR chest 2V IMPRESSION: No acute pulmonary disease. Dictated By: Yung Soares MD Signed By: Electronically signed by Yung Soares MD 11/01/21 [id number] Discharge Plan Discharge Clinical Impression: Chest pain due to GERD, Reactive airway disease Patient Disposition: Home, Self-Care Instructions: Chest Pain (DC), Wheezing (ED) Additional Instructions: Follow up with your primary care provider. Return to the emergency department immediately if your symptoms worsen or if you develop any dizziness, shortness of breath, difficulty breathing, chest pain, blurry vision, loss of vision, nausea, vomiting, abdominal pain, fever, chills, back pain, or any other complaints. Prescriptions: No Action benzonatate 200 mg capsule 200 mg PO TID PRN (Reason: cough) Qty: 20 0RF fluticasone propionate [Flonase Allergy Relief] 50 mcg/actuation spray,suspension 2 spray intranasal DAILY Qty: 16 0RF Rx Instructions: administer into each nostril pantoprazole [Protonix] 40 mg tablet,delayed release (DR/EC) 40 mg PO DAILY Qty: 14 0RF pantoprazole [Protonix] 40 mg tablet,delayed release (DR/EC) 40 mg PO DAILY Qty: 30 0RF ondansetron 4 mg tablet,disintegrating 4 mg PO Q8H PRN (Reason: N/V) Qty: 14 0RF Referrals: [facility] [place] [facility] [Provider Group] (Call to establish with a GI specialist. ) [facility] [place]] (Call to establish with a primary care provider. If you already have a primary care provider, follow up with their office.) [facility] [place] [facility] Group] (Call to establish with a primary care provider. If you already have a primary care provider, follow up with their office.) [facility] [place] [facility] [place] (Call to establish with a primary care provider. If you already have a primary care provider, follow up with their office.) Print Language: [place]ian
[2021-11-02 00:03] LABS: B Type Natriuretic Peptide 23 pg/mL (<100); Troponin-I High Sensitivity < 3.5 ng/L (<3.5-17.0)
[2021-11-02] MEDS: Albuterol/Iprat 2.5/0.5MG 3 ML AMPUL.NEB INHALE (00:03)
[2021-11-02 00:05] VITALS: PULSE 74; RESP 16; O2SAT 97
[2021-11-02 00:08] LABS: Appearance Urine CLEAR; Color Urine YELLOW; Glucose Urine UA NEG (NEG); Leukocyte Esterase Urine NEG (NEG); Nitrite Urine NEG (NEG); Specific Gravity - Urine 1.025 (1.005-1.025); UACC Culture Trigger NO; Urine Blood 2+ (NEG); Urine Ketones NEG (NEG); Urine Protein NEG (NEG-TRACE)
[2021-11-02 00:10] LABS: UPreg QC Valid YES; Urine Pregnancy NEGATIVE (NEGATIVE)
[2021-11-02 00:23] LABS: Bacteria Urine 1+ /LPF; Calcium Oxalate Crystals Urine 2+ /LPF; Squamous Epithelial Cell Urine 2+ /LPF; WBC Urine 0 /HPF (0-4)
[2021-11-02] MEDS: Magnesium Hydrox/Alum Hydrox 30 ML ORAL.SUSP PO (00:26)
[2021-11-02] MEDS: dexAMETHasone sod phosphate 10 MG/ML VIAL IM (00:26)
== END 2021-11-02 00:36 | disposition home or self-care (01) ==
PROVIDERS: Physician Assistant Medical; Emergency Provider Internal Medicine
DX: R07.9 Chest pain, unspecified (principal); K21.9 Gastro-esophageal reflux disease without esophagitis; J45.909 Unspecified asthma, uncomplicated
CPT/HCPCS: 36415; 71046; 80053; 81001; 81003; 81025; 82248; 83880; 84484; 85025; 94640; 96372; 99283; 99284; J1100

== ENCOUNTER 2022-03-10 09:06 | Emergency (ER) | payer MEDICAID, OTHER, SELFPAY ==
--- NOTE | ~2022-03-10 | XR_ITS ---
EXAMINATION: XR CHEST CLINICAL INFORMATION: Chest pain COMPARISON: None TECHNIQUE: Frontal view of the chest was obtained. FINDINGS: No significant abnormality is noted involving the heart, lungs, mediastinum, bony thorax or soft tissues. XR/XR chest 1V IMPRESSION: Unremarkable chest exam.
--- NOTE | 2022-03-10 09:20 | ECG_ITS ---
Test Reason : CHEST PAIN Blood Pressure : / mmHG Vent. Rate : 085 BPM Atrial Rate : 085 BPM P-R Int : 130 ms QRS Dur : 068 ms QT Int : 350 ms P-R-T Axes : 082 044 026 degrees QTc Int : 416 ms Normal sinus rhythm with sinus arrhythmia Possible Left atrial enlargement RSR' or QR pattern in V1 suggests right ventricular conduction delay Borderline ECG When compared with ECG of 28-AUG-2021 09:58, No significant changes seen Referred By: Generic ED Physician Electronically Signed By:ANGELES HERRERA MD
[2022-03-10 09:21] VITALS: BP 121/76; PULSE 94; RESP 17; TEMP 36.6; O2SAT 98; BMI 22.3
[2022-03-10 09:37] LABS: MANUAL DIFF FLAG NO
[2022-03-10 09:38] LABS: Basophils Absolute Auto 0.1 X10*3/uL (0.0-0.2); Basophils Percent Auto 0.6 % (0-2); Eosinophils Absolute Auto 0.5 X10*3/uL (0.0-0.4); Eosinophils Percent Auto 5.7 % (0-4); Hematocrit 42.2 % (37.0-47.0); Hemoglobin 13.9 g/dl (12.0-16.0); Imm Gran Abs Auto 0.04 X10*3/uL (0.00-0.03); Imm Gran Pct Auto 0.4 % (0.0-0.4); Lymphocytes Absolute Auto 2.1 X10*3/uL (1.2-4.9); Mean Corpuscular HGB Conc 32.9 g/dl (31.0-35.0); Mean Corpuscular Hemoglobin 29.4 pg (27.0-33.0); Mean Corpuscular Volume 89.2 fL (80.0-98.0); Mean Platelet Volume 10.6 fL (9.4-12.3); Monocytes Absolute Auto 0.3 X10*3/uL (0.1-1.2); Monocytes Percent Auto 3.7 % (2-11); Neutrophils Absolute Auto 5.8 x10*3/uL (2.0-8.3); Neutrophils Percent Auto 65.6 % (45-73); Platelet Count 327 X10*3/uL (160-400); Red Blood Count 4.73 X10*6/uL (4.20-5.50); Red Cell Distribution Width 12.4 % (11.0-16.0); White Blood Count 8.9 X10*3/uL (4.8-10.8)
--- NOTE | 2022-03-10 09:46 | ED_ITS ---
HPI - General Adult General Chief complaint: General Medical Stated complaint: chest pain Time Seen by Provider: 03/10/22 09:35 Source: patient Mode of arrival: ambulatory Limitations: no limitations History of Present Illness HPI narrative: 31-year-old female who has previously healthy who presents with chest tightness since last night with shortness of breath. Patient tells me that her tetanus began when she was doing some cleaning in the house and was exposed to some secondhand tobacco smoke. She feels like it is hard to take a deep breath in.- continue here today. No cough, fever, leg swelling or leg pain. No recent travel or sick contact. Patient reports similar episode in October which improved with albuterol and steroids. She has no previous history of asthma or lung disease. She has received 2 COVID vaccinations. She was positive for COVID last year. Related Data Previous Rx's Medication Instructions Recorded benzonatate 200 mg capsule 200 mg PO TID PRN cough #20 caps 04/10/21 fluticasone propionate 50 2 spray intranasal DAILY #16 grams 04/10/21 mcg/actuation nasal spray,suspension (Flonase Allergy Relief) pantoprazole 40 mg tablet,delayed 40 mg PO DAILY #14 tabs 08/28/21 release (Protonix) ondansetron 4 mg disintegrating 4 mg PO Q8H PRN N/V #14 tabs 10/13/21 tablet pantoprazole 40 mg tablet,delayed 40 mg PO DAILY GERD #30 tabs 10/13/21 release (Protonix) prednisone 20 mg tablet 40 mg PO DAILY #8 tabs 03/10/22 Allergies Allergy/AdvReac Type Severity Reaction Status Date / Time No Known Allergies Allergy Verified 10/13/21 11:20 Review of Systems Review of Systems: Yes all other systems are reviewed and are negative Constitutional: Constitutional: Reports no additional constitutional complaints, Denies body ache(s), Denies chills, Denies fever(s), Denies headache(s) and Denies weakness Eyes: Eyes: Reports no additional eye complaints and Denies change in vision ENT: Reports system reviewed and no additional complaints, except as documented, Denies dizziness, Denies headache(s), Denies nasal congestion, Denies nasal discharge and Denies neck pain Cardiovascular: Cardiovascular: Reports no additional cardiovascular complaints, Reports chest pain, Denies leg edema and Reports dyspnea Respiratory: Respiratory: Reports no additional respiratory complaints, Denies cough and Reports dyspnea Gastrointestinal: Gastrointestinal: Reports no additional gastrointestinal complaints, Denies abdominal pain, Denies diarrhea, Denies nausea and Denies vomiting Genitourinary: Genitourinary: Reports no additional female genitourinary complaints and Denies urinary incontinence Musculoskeletal: Musculoskeletal: Reports no additional musculoskeletal complaints, Denies back pain, Denies arthralgias, Denies joint swelling, Denies neck pain, Denies numbness and Denies tingling Integumentary/Breasts: Skin/Breast: Reports system reviewed and no additional complaints, except as docu and Denies rash Neurologic: Reports system reviewed and no additional complaints, except as documented, Denies dizziness, Denies headache(s), Denies numbness, Denies tingling and Denies weakness PMFSH Past Medical History Attestation statement: The following information was validated with the patient. Source: old records reviewed and nursing notes reviewed Medical History No known health problems Social History Social History Alcohol intake: current Alcohol intake frequency: holidays/special occasions only Alcohol type: beer Patient Tobacco Use Status: Never used Tobacco Advance Directives: No Advance Directives Information Provided: No Physical Exam ED Vital Signs: Vital Signs - 24 hr 03/10/22 09:21 03/10/22 10:32 Temperature 97.9 F Pulse Rate 94 88 Respiratory Rate 17 16 Blood Pressure 121/76 Pulse Oximetry 98 Oxygen Delivery Method Room Air BMI result Body Mass Index 22.3 Const General: cooperative, healthy appearing and comfortable Orientation/consciousness: patient oriented x3 Limitations: no limitations [facility] Head: Yes normal to inspection Ears: hearing grossly normal bilaterally Eyes General: appearance normal, both eyes and all related structures Pupils: Equal, round and reactive pupils present Neck Neck: Yes normal visual inspection, Yes full ROM and Yes no lymphadenopathy Chest Chest palpation & inspection: normal inspection of the chest Resp Other: Breath sounds are diminished. Expiratory wheezing in the upper airways Effort & Inspection: normal respiratory effort Cardio Rate: regular rate Rhythm: regular rhythm Peripheral pulses: Peripheral pulses 2+ throughout GI Inspection: Yes normal to inspection Palpation (GI): Soft to palpation and nontender General: Yes no CVA tenderness Back/Spine/Pelvis Back: no CVA tenderness Thoracic/Lumbar Spine: thoracic and lumbar spine normal to inspection Skin General skin exam: no rashes or lesions noted Neuro General: patient oriented x3 and moves all extremities Cranial nerves: Yes Equal, round and reactive pupils present Cognition (Neuro): normal cognition Gait exam (Neuro): Normal gait present Extrem General: Yes normal to inspection, Yes no pedal edema and Yes no calf tenderness Course Course Course Narrative: Blood work including troponin and D-dimer negative. EKG shows no ischemic changes. Chest x-ray is negative for any infectious process. COVID screen is negative. Likely patient has underlying reactive airway disease or asthma. Recommended she has tablets a primary care doctor to follow up with to have pulmonary function test done. Will send her home with albuterol MDI. She does report improvement of symptoms with 2 puffs of albuterol here. Will also give her a brief course of prednisone. Reviewed worrisome signs and symptoms of when to return to the emergency room. Comfortable plan for discharge home. Medical Decision Making MDM Narrative Medical decision making narrative: 31-year-old female here with chest tightness and shortness of breath since yesterday after exposure to some secondhand tobacco smoke and exercise. On arrival patient has diminished breath sounds and mild expiratory wheezing in the upper airways. Otherwise her exam is normal. No history of lung disease. Patient had similar episode in October which improved with albuterol and steroids. Will check labs, chest x-ray. Will give albuterol and prednisone Differential Diagnosis Differential Diagnosis: Reactive airway disease, PE, pneumonia, low concern for ACS Medical Records Medical records reviewed: Yes I reviewed the patient's medical records. Lab Data Lab results reviewed: Yes I reviewed the patient's lab results. Result diagrams: 03/10/22 09:33 03/10/22 09:33 Labs: Lab Results 03/10/22 03/10/22 03/10/22 Range/Units 09:33 09:33 09:33 WBC 8.9 (4.8-10.8) X10*3/uL RBC 4.73 (4.20-5.50) X10*6/uL Hgb 13.9 (12.0-16.0) g/dl Hct 42.2 (37.0-47.0) % MCV 89.2 (80.0-98.0) fL MCH 29.4 (27.0-33.0) pg MCHC 32.9 (31.0-35.0) g/dl RDW 12.4 (11.0-16.0) % Plt Count 327 (160-400) X10*3/uL MPV 10.6 (9.4-12.3) fL Immature Gran % (Auto) 0.4 (0.0-0.4) % Neut % (Auto) 65.6 (45-73) % Lymph % (Auto) 24.0 (20-40) % [place] % (Auto) 3.7 (2-11) % Eos % (Auto) 5.7 H (0-4) % Baso % (Auto) 0.6 (0-2) % Lymph # (Auto) 2.1 (1.2-4.9) X10*3/uL [place] # (Auto) 0.3 (0.1-1.2) X10*3/uL Eos # (Auto) 0.5 H (0.0-0.4) X10*3/uL Baso # (Auto) 0.1 (0.0-0.2) X10*3/uL Abs Immat Gran (auto) 0.04 H (0.00-0.03) X10*3/uL Absolute Neuts (auto) 5.8 (2.0-8.3) x10*3/uL Absolute Nucleated RBC 0.000 (0.0-0.012) X10*3/uL Nucleated RBC % (auto) 0.0 (0.0-0.2) /100WBC D-Dimer High Sensitivty NG/ML Sodium 141 (135-145) mmol/L Potassium 4.0 (3.3-5.1) mmol/L Chloride 107 (96-108) mmol/L Carbon Dioxide 24 (22-29) mmol/L Anion Gap 14 (12-20) BUN 9 (9-16) mg/dL Creatinine 0.81 (0.5-1.4) mg/dL Estim Creat Clear Calc 73.5 Estimated GFR > 60 Random Glucose 140 H (60-115) mg/dL Calcium 9.1 (8.4-10.2) mg/dL Troponin I High Sens < 3.5 (<3.5-17.0) ng/L COVID-19 ([facility]) (Negative) COVID-19 Clin Com 03/10/22 03/10/22 Range/Units 10:10 10:10 WBC (4.8-10.8) X10*3/uL RBC (4.20-5.50) X10*6/uL Hgb (12.0-16.0) g/dl Hct (37.0-47.0) % MCV (80.0-98.0) fL MCH (27.0-33.0) pg MCHC (31.0-35.0) g/dl RDW (11.0-16.0) % Plt Count (160-400) X10*3/uL MPV (9.4-12.3) fL Immature Gran % (Auto) (0.0-0.4) % Neut % (Auto) (45-73) % Lymph % (Auto) (20-40) % [place] % (Auto) (2-11) % Eos % (Auto) (0-4) % Baso % (Auto) (0-2) % Lymph # (Auto) (1.2-4.9) X10*3/uL [place] # (Auto) (0.1-1.2) X10*3/uL Eos # (Auto) (0.0-0.4) X10*3/uL Baso # (Auto) (0.0-0.2) X10*3/uL Abs Immat Gran (auto) (0.00-0.03) X10*3/uL Absolute Neuts (auto) (2.0-8.3) x10*3/uL Absolute Nucleated RBC (0.0-0.012) X10*3/uL Nucleated RBC % (auto) (0.0-0.2) /100WBC D-Dimer High Sensitivty < 150 NG/ML Sodium (135-145) mmol/L Potassium (3.3-5.1) mmol/L Chloride (96-108) mmol/L Carbon Dioxide (22-29) mmol/L Anion Gap (12-20) BUN (9-16) mg/dL Creatinine (0.5-1.4) mg/dL Estim Creat Clear Calc Estimated GFR Random Glucose (60-115) mg/dL Calcium (8.4-10.2) mg/dL Troponin I High Sens (<3.5-17.0) ng/L COVID-19 ([facility]) Negative (Negative) COVID-19 Clin Com See Note Imaging Data Chest x-ray: Attestation: I personally reviewed and interpreted this imaging study as follows: Radiologist's impression: [address] [address] XRay Report Signed Patient: Nannette Sanches MR#: [id number] : 1990 Acct:[id number] Age/Sex: 31 / F ADM Date: 03/10/22 Loc: HO.ED Attending Dr: Ordering Physician: Chavez Hogan MD Date of Service: 03/10/22 Procedure(s): XR chest 1V Accession Number(s): [id number] cc: Chavez Hogan MD~ EXAMINATION: XR CHEST CLINICAL INFORMATION: Chest pain COMPARISON: None TECHNIQUE: Frontal view of the chest was obtained. FINDINGS: No significant abnormality is noted involving the heart, lungs, mediastinum, bony thorax or soft tissues. XR/XR chest 1V IMPRESSION: Unremarkable chest exam. ? ECG Data Attestation: I personally reviewed and interpreted this ECG as follows: Interpretation: Normal sinus rhythm with sinus arrhythmia with a rate of 85, normal MS, normal QRS, normal QT, T-wave inversions in lead 3 Discharge Plan Discharge Clinical Impression: Chest pain, Wheezing Patient Disposition: Home, Self-Care Instructions: Chest Pain (ED), How to Use a Breath-Activated Inhaler (ED), Wheezing (ED) Additional Instructions: Your blood work, EKG and chest x-ray are all very reassuring today. Her COVID screen is negative. You need to follow-up with your primary care doctor to have pulmonary function tests done so they may rule out asthma You were given albuterol inhaler. Please use this 2 puffs every 4-6 hours as needed for chest tightness or shortness of breath Start your prednisone tomorrow Return for worsening symptoms Prescriptions: New prednisone 20 mg tablet 40 mg PO DAILY Qty: 8 0RF No Action benzonatate 200 mg capsule 200 mg PO TID PRN (Reason: cough) Qty: 20 0RF fluticasone propionate [Flonase Allergy Relief] 50 mcg/actuation spray,suspension 2 spray intranasal DAILY Qty: 16 0RF Rx Instructions: administer into each nostril pantoprazole [Protonix] 40 mg tablet,delayed release (DR/EC) 40 mg PO DAILY Qty: 14 0RF pantoprazole [Protonix] 40 mg tablet,delayed release (DR/EC) 40 mg PO DAILY Qty: 30 0RF ondansetron 4 mg tablet,disintegrating 4 mg PO Q8H PRN (Reason: N/V) Qty: 14 0RF Referrals: Physician,None [Primary Care Provider] - Stand Alone Forms: Work/School Release Interventions: ED Discharge Assessment Last Done: 03/10/22 10:59 Discharge Date/Time: 03/10/22 10:59
[2022-03-10 09:55] LABS: Anion Gap 14 (12-20); Blood Urea Nitrogen 9 mg/dL (9-16); Calcium 9.1 mg/dL (8.4-10.2); Carbon Dioxide 24 mmol/L (22-29); Chloride 107 mmol/L (96-108); Creatinine Clr Calc Pharmacy 73.5; Estimated Glomerular Filt Rate > 60; Glucose Random 140 mg/dL (60-115); Sodium 141 mmol/L (135-145)
[2022-03-10 10:00] LABS: Troponin-I High Sensitivity < 3.5 ng/L (<3.5-17.0)
[2022-03-10] MEDS: predniSONE 20 MG TABLET 60 MG PO (10:05)
[2022-03-10 10:30] LABS: COVID-19 Test Negative (Negative); IDNOW Serial# 16C4AD1C
[2022-03-10] MEDS: Albuterol Sulfate 90 MCG 8 GM INHALER 2 PUFF INHALE (10:31)
[2022-03-10 10:32] VITALS: PULSE 88; RESP 16; O2SAT 99
[2022-03-10 10:34] LABS: D Dimer High Sensitivity < 150 NG/ML
== END 2022-03-10 10:59 | disposition home or self-care (01) ==
PROVIDERS: Nurse Practitioner Family; Emergency Provider Emergency Medicine
DX: R07.9 Chest pain, unspecified (principal); R06.2 Wheezing; Z20.822 Contact with and (suspected) exposure to COVID-19
CPT/HCPCS: 36415; 71045; 80048; 84484; 85025; 85379; 87635; 93005; 94640; 94664; 99284

== ENCOUNTER 2023-11-14 16:19 | Emergency (ER) | payer MEDICAID, OTHER, SELFPAY ==
--- NOTE | ~2023-11-14 | CT_ITS ---
EXAMINATION: CT HEAD WITHOUT CONTRAST CLINICAL INFORMATION: New onset headache. COMPARISON: None available. TECHNIQUE: Contiguous axial imaging was performed from the skull base to vertex without intravenous administration of contrast. Multiplanar reformatted images are submitted. This CT examination was performed using dose optimization techniques as appropriate, variously including the following: *Automated exposure control *Adjustment of mA and/or kV according to patient size (this includes techniques or standardized protocols for targeted exams where dose is matched to indication/reason for exam; i.e. extremities or head) *Use of iterative reconstruction technique DLP: 584 mGy-cm FINDINGS: There is no acute intracranial hemorrhage or evidence of territorial infarction. No abnormal mass effect or midline shift is seen. [place] to white matter differentiation is well preserved. There is no abnormal attenuation within the brain parenchyma. The ventricles are normal in size. No extra-axial fluid collections are identified. The calvarium and scalp soft tissues are normal. There is mild hyperostosis frontalis interna. The middle ear cavity and mastoid air cells are clear. A moderate mucus retention cyst is seen within the right sphenoid sinus chamber. The remaining visualized paranasal sinuses are clear. CT/CT head/brain wo IV con IMPRESSION: 1. No acute intracranial pathology. 2. There is sphenoid sinusitis.
[2023-11-14 16:43] VITALS: BP 119/79; PULSE 75; RESP 18; TEMP 36.9; O2SAT 99; BMI 24.2
--- NOTE | 2023-11-14 16:44 | ED.HA ---
HPI - Headache General Chief Complaint: Headache Stated Complaint: headache since this morning. Time Seen by Provider: 11/14/23 20:11 Source: patient Mode of arrival: ambulatory Limitations: no limitations History of Present Illness ED Provider: jason PINEDA Narrative: Patient with remote history of migraine comes here for headache diffuse top of the head patient woke up with headache tried Excedrin migraine with no relief no nausea no vomiting does have light sensitivity stop wearing eyeglasses to 3 months ago no sinus discharge Related Data Previous Rx's ?Medication ?Instructions ?Recorded benzonatate 200 mg capsule 200 mg PO TID PRN cough #20 caps 04/10/21 fluticasone propionate 50 2 spray intranasal DAILY #16 grams 04/10/21 mcg/actuation nasal spray,suspension (Flonase Allergy Relief) pantoprazole 40 mg tablet,delayed 40 mg PO DAILY #14 tabs 08/28/21 release (Protonix) ondansetron 4 mg disintegrating 4 mg PO Q8H PRN N/V #14 tabs 10/13/21 tablet pantoprazole 40 mg tablet,delayed 40 mg PO DAILY GERD #30 tabs 10/13/21 release (Protonix) prednisone 20 mg tablet 40 mg (2 x 20 mg) PO DAILY #8 tabs 03/10/22 urvjfdlxhj-jujuorfssgxbd-kxxqjetu 1 tab PO Q6H PRN haeadace #20 tabs 11/14/23 50 mg-325 mg-40 mg tablet Allergies Allergy/AdvReac Type Severity Reaction Status Date / Time No Known Allergies Allergy Verified 11/14/23 16:48 Review of Systems Review of Systems: Yes all other systems are reviewed and are negative PMFSH Past Medical History Medical History No known health problems Social History Social History Alcohol intake: current Alcohol intake frequency: holidays/special occasions only Alcohol type: beer Patient Tobacco Use Status: Never used Tobacco Smoked in Last 30 Days: No Use of substances other than those prescribed or required for medical reasons: No Advance Directives: No Advance Directives Information Provided: No Physical Exam Vital Signs: Vital Signs: Last Vital Signs Temp 97.4 F 11/14/23 23:13 Pulse 57 11/14/23 23:13 Resp 16 11/14/23 23:13 BP 125/91 H 11/14/23 23:13 Pulse Ox 98 11/14/23 23:13 O2 Del Method Room Air 11/14/23 23:13 BMI result Body Mass Index 24.2 Appearance: Alert. Oriented X3. No acute distress. Eyes: PERRLA, No Nystagmus ENT: Pharynx normal. Oral Mucosa moist no sinus tenderness no temporal artery tenderness Neck: Normal inspection. Neck supple. CVS: Normal heart rate and rhythm. Pulses normal. Respiratory: No respiratory distress. Equal air entry bilateral, no wheezing/rales/rhonchi Abdomen: Soft and nontender. Bowel sounds are present, no mass palpable, no CVA tenderness Skin: Skin warm and dry. Normal skin color. Normal skin turgor. Extremities: No lower extremity edema. No calf tenderness Neuro: Oriented X 3. No motor deficit. No sensory deficit.No cerebellar signs , cranial nerves II-XII intact Course Course Course Narrative: This is a Rapid Medical Exam performed in triage by Trish Chan PA-C. Full HPI, ROS and PE to be performed by primary ED provider. 33 year-old w/ no sig PMHx presenting to the ED c/o REIS since waking this morning, no maximal at onset. took Excedrin w/o relief. states she is supposed to wear glasses but has been noncompliant x months. Has not see [employer] x3 yrs. denies visual changes, N/V PE: nonfocal, ambulating w/steady gait Plan: labs, migraine cocktail Medications Administered Discontinued Medications Generic Name Dose Route Start Last Admin Trade Name [place] PRN Reason Stop Dose Admin Morphine Sulfate 4 mg 11/14/23 20:47 11/14/23 21:14 Morphine Sulfate 4 Mg/Ml Cartridge IVPUSH 11/14/23 20:48 4 mg ONCE ONE Administration Protocol Ondansetron HCl 4 mg 11/14/23 20:47 11/14/23 21:14 Ondansetron Hcl 4 Mg/2 Ml Vial IVPUSH 11/14/23 20:48 4 mg ONCE ONE Administration Medical Decision Making Medical Decision Making [facility] Narrative: Patient with history of migraine with headache CT scan negative for acute likely complex migraine discharge patient home on [facility] Differential Diagnosis Differential Diagnoses: The differential diagnosis associated with the presentation includes Subarachnoid bleed/tension headache/migraine headache Lab Data [facility] Lab Attestation statement: I reviewed the patient's lab results. 11/14/23 18:18 11/14/23 18:18 Labs: Lab Results 11/14/23 Range/Units 18:18 WBC 9.7 (4.8-10.8) X10*3/uL RBC 4.26 (4.20-5.50) X10*6/uL Hgb 12.8 (12.0-16.0) g/dl Hct 37.7 (37.0-47.0) % MCV 88.5 (80.0-98.0) fL MCH 30.0 (27.0-33.0) pg MCHC 34.0 (31.0-35.0) g/dl RDW 12.2 (11.0-16.0) % Plt Count 272 (160-400) X10*3/uL MPV 10.6 (9.4-12.3) fL Immature Gran % (Auto) 0.6 H (0.0-0.4) % Neut % (Auto) 60.9 (45-73) % Lymph % (Auto) 27.3 (20-40) % [place] % (Auto) 6.1 (2-11) % Eos % (Auto) 4.6 H (0-4) % Baso % (Auto) 0.5 (0-2) % Lymph # (Auto) 2.7 (1.2-4.9) X10*3/uL [place] # (Auto) 0.6 (0.1-1.2) X10*3/uL Eos # (Auto) 0.5 H (0.0-0.4) X10*3/uL Baso # (Auto) 0.1 (0.0-0.2) X10*3/uL Abs Immat Gran (auto) 0.06 H (0.00-0.03) X10*3/uL Absolute Neuts (auto) 5.9 (2.0-8.3) x10*3/uL Absolute Nucleated RBC 0.000 (0.0-0.012) X10*3/uL Nucleated RBC % (auto) 0.0 (0.0-0.2) /100WBC Sodium 141 (135-145) mmol/L Potassium 4.0 (3.3-5.1) mmol/L Chloride 107 (96-108) mmol/L Carbon Dioxide 27 (22-29) mmol/L Anion Gap 11 L (12-20) BUN 16 (9-16) mg/dL Creatinine 0.88 (0.5-1.4) mg/dL Estim Creat Clear Calc 67.2 Estimated GFR > 60 Random Glucose 100 (60-115) mg/dL Calcium 9.3 (8.4-10.2) mg/dL Independent Interpretation I performed an independent interpretation of an: CT Scan Radiology Impression Discussion of test interpretation with radiology: I have reviewed the radiologist's reading. Discharge Plan Discharge Clinical Impression: Migraine Patient Disposition: Home, Self-Care Instructions: Migraine Headache (ED) Additional Instructions: Take medication for headache as prescribed Rest at home Prescriptions: New anxqjwuxcu-oggetirxnhpwg-yvxj 50-325-40 mg tablet 1 tab PO Q6H PRN (Reason: haeadace) Qty: 20 0RF No Action benzonatate 200 mg capsule 200 mg PO TID PRN (Reason: cough) Qty: 20 0RF fluticasone propionate [Flonase Allergy Relief] 50 mcg/actuation spray,suspension 2 spray intranasal DAILY Qty: 16 0RF Rx Instructions: administer into each nostril pantoprazole [Protonix] 40 mg tablet,delayed release (DR/EC) 40 mg PO DAILY Qty: 14 0RF pantoprazole [Protonix] 40 mg tablet,delayed release (DR/EC) 40 mg PO DAILY Qty: 30 0RF ondansetron 4 mg tablet,disintegrating 4 mg PO Q8H PRN (Reason: N/V) Qty: 14 0RF prednisone 20 mg tablet 40 mg PO DAILY Qty: 8 0RF Interventions: ED Discharge Assessment Last Done: 11/14/23 23:13 Discharge Date/Time: 11/14/23 23:14 Print Language: Citizen Of [place]
[2023-11-14 18:00] VITALS: BP 132/81; PULSE 66; TEMP 36.5; O2SAT 100
[2023-11-14 18:21] LABS: MANUAL DIFF FLAG NO
[2023-11-14 18:23] LABS: Basophils Absolute Auto 0.1 X10*3/uL (0.0-0.2); Basophils Percent Auto 0.5 % (0-2); Eosinophils Absolute Auto 0.5 X10*3/uL (0.0-0.4); Eosinophils Percent Auto 4.6 % (0-4); Hematocrit 37.7 % (37.0-47.0); Hemoglobin 12.8 g/dl (12.0-16.0); Imm Gran Abs Auto 0.06 X10*3/uL (0.00-0.03); Imm Gran Pct Auto 0.6 % (0.0-0.4); Lymphocytes Absolute Auto 2.7 X10*3/uL (1.2-4.9); Lymphocytes Percent Auto 27.3 % (20-40); Mean Corpuscular Volume 88.5 fL (80.0-98.0); Mean Platelet Volume 10.6 fL (9.4-12.3); Monocytes Absolute Auto 0.6 X10*3/uL (0.1-1.2); Monocytes Percent Auto 6.1 % (2-11); Neutrophils Absolute Auto 5.9 x10*3/uL (2.0-8.3); Neutrophils Percent Auto 60.9 % (45-73); Platelet Count 272 X10*3/uL (160-400); Red Blood Count 4.26 X10*6/uL (4.20-5.50); Red Cell Distribution Width 12.2 % (11.0-16.0); White Blood Count 9.7 X10*3/uL (4.8-10.8)
[2023-11-14 18:34] LABS: Anion Gap 11 (12-20); Blood Urea Nitrogen 16 mg/dL (9-16); Calcium 9.3 mg/dL (8.4-10.2); Carbon Dioxide 27 mmol/L (22-29); Chloride 107 mmol/L (96-108); Creatinine Clr Calc Pharmacy 67.2; Estimated Glomerular Filt Rate > 60; Glucose Random 100 mg/dL (60-115); Sodium 141 mmol/L (135-145)
--- NOTE | 2023-11-14 19:27 | PC.NURSE ---
pt brought back to exam room from triage w/ 03/05 headdache pain. IV access established, awaiting provider eval.
[2023-11-14 19:41] VITALS: BP 153/91; PULSE 63; RESP 16; TEMP 36.7; O2SAT 99
--- NOTE | 2023-11-14 19:48 | PC.NURSE ---
pt provided with [facility] physician listing- pt sts she does not have a primary care provider, opthamologist, or OBGYN.
[2023-11-14] MEDS: ondansetron HCL 4 MG/2 ML VIAL IVPUSH (21:14)
[2023-11-14] MEDS: Morphine Sulfate 4 MG/ML CARTRIDGE IVPUSH (21:14)
[2023-11-14 21:59] VITALS: BP 125/91; PULSE 57; RESP 16; TEMP 36.3; O2SAT 98
[2023-11-14 23:13] VITALS: BP 125/91; PULSE 57; RESP 16; TEMP 36.3; O2SAT 98
== END 2023-11-14 23:14 | disposition home or self-care (01) ==
PROVIDERS: Physician Assistant; Emergency Provider Internal Medicine
DX: G43.909 Migraine, unspecified, not intractable, without status migrainosus (principal)
CPT/HCPCS: 36415; 70450; 80048; 85025; 96374; 96375; 99284; J2270; J2405

== ENCOUNTER 2024-02-05 15:03 | Emergency (ER) | payer MEDICAID, OTHER, SELFPAY ==
--- NOTE | 2024-02-05 15:10 | ED_ITS ---
HPI - General Adult General Stated complaint: needs control implant removed Time Seen by Provider: 02/05/24 15:10 Source: patient Mode of arrival: ambulatory Limitations: no limitations History of Present Illness ED Provider: Osmin BARKER HPI narrative: 33yo F with Nexplanon implant requesting to have it removed. Placed 5 years ago, expires on 02/20/24. Denies fevers, chills, N/V, insertion site pain. Related Data Previous Rx's ?Medication ?Instructions ?Recorded benzonatate 200 mg capsule 200 mg PO TID PRN cough #20 caps 04/10/21 fluticasone propionate 50 2 spray intranasal DAILY #16 grams 04/10/21 mcg/actuation nasal spray,suspension (Flonase Allergy Relief) pantoprazole 40 mg tablet,delayed 40 mg PO DAILY #14 tabs 08/28/21 release (Protonix) ondansetron 4 mg disintegrating 4 mg PO Q8H PRN N/V #14 tabs 10/13/21 tablet pantoprazole 40 mg tablet,delayed 40 mg PO DAILY GERD #30 tabs 10/13/21 release (Protonix) prednisone 20 mg tablet 40 mg (2 x 20 mg) PO DAILY #8 tabs 03/10/22 shklnbxven-njwmadzmuoscb-rkvthimy 1 tab PO Q6H PRN haeadace #20 tabs 11/14/23 50 mg-325 mg-40 mg tablet Allergies Allergy/AdvReac Type Severity Reaction Status Date / Time No Known Allergies Allergy Verified 02/05/24 15:16 Review of Systems Review of Systems: Yes all other systems are reviewed and are negative [facility] Past Medical History Attestation statement: The following information was validated with the patient. Source: old records reviewed and nursing notes reviewed Medical History No known health problems Social History Social History Alcohol intake: current Alcohol intake frequency: holidays/special occasions only Alcohol type: beer Patient Tobacco Use Status: Never used Tobacco Physical Exam ED Vital Signs: Vss Appearance: Alert.? Oriented X3.? No acute cardiopulmonary distress distress.? Head: Normocephalic, atraumatic CVS: Pulses normal.? Respiratory: No respiratory distress.? Skin: ? Normal skin color. Extremities: Nexplanon in place L inner aspect of biceps Neuro: Oriented X 3.?. Course Reevaluation(s) Reevaluation #1: Not appropriate to remove in ED. Referred to OBGYN for removal and new control method discussion/rx. Time: 15:18 Medical Decision Making Medical Decision Making MDM Narrative: 33yo F with Nexplanon implant requesting to have it removed. Placed 5 years ago, expires on 02/20/24. Exam benign with Nexplanon in place Hx and PE concerning for Nexplanon to be removed in near future. No erythema, abscess, systemic toxicity Plan: refer to OBGYN for removal Differential Diagnosis Differential Diagnoses: The differential diagnosis associated with the presentation includes (Hx and PE concerning for Nexplanon to be removed in near future. No erythema, abscess, systemic toxicity) Admission/Observation Consideration of admission/observation: Escalation of care including admission/observation considered (Not indicated) Discharge Plan Discharge Clinical Impression: control counseling Patient Disposition: Home, Self-Care Instructions: Removal of Control Implant (DC) Additional Instructions: Take your medications as prescribed. If you were prescribed antibiotics today, it is important that you take your medication to their entirety, do not skip any doses, do not finish them early. Follow-up with your primary care provider this week. Return to the emergency department with new or worsening symptoms. Such as fevers, chills, chest pain, shortness of breath, nausea, vomiting, dizziness, headache, vision changes, lethargy In case of emergency call 911 Prescriptions: No Action benzonatate 200 mg capsule 200 mg PO TID PRN (Reason: cough) Qty: 20 0RF fluticasone propionate [Flonase Allergy Relief] 50 mcg/actuation spray,suspension 2 spray intranasal DAILY Qty: 16 0RF Rx Instructions: administer into each nostril pantoprazole [Protonix] 40 mg tablet,delayed release (DR/EC) 40 mg PO DAILY Qty: 14 0RF pantoprazole [Protonix] 40 mg tablet,delayed release (DR/EC) 40 mg PO DAILY Qty: 30 0RF ondansetron 4 mg tablet,disintegrating 4 mg PO Q8H PRN (Reason: N/V) Qty: 14 0RF prednisone 20 mg tablet 40 mg PO DAILY Qty: 8 0RF jkkoulcula-wxcwfcbtxdeyh-zxfy 50-325-40 mg tablet 1 tab PO Q6H PRN (Reason: haeadace) Qty: 20 0RF Referrals: Physician,None [Primary Care Provider] - 1 day Red Ballard MD [Physician] - 2 days Print Language: Anguillan
[2024-02-05 15:14] VITALS: BP 136/95; PULSE 82; RESP 16; TEMP 36.8; O2SAT 100; BMI 24.3
[2024-02-05 15:20] VITALS: BP 136/95; PULSE 82; RESP 16; TEMP 36.8; O2SAT 100
== END 2024-02-05 15:22 | disposition home or self-care (01) ==
LOC: HO.ED 15:25
PROVIDERS: Emergency Provider Emergency Medicine Emergency Medical Services
DX: R11.2 Nausea with vomiting, unspecified (principal); Z30.8 Encounter for other contraceptive management
CPT/HCPCS: 99282

== ENCOUNTER 2024-06-06 15:58 | Emergency (ER) | payer MEDICAID, OTHER, SELFPAY ==
--- NOTE | ~2024-06-06 | US_ITS ---
CLINICAL HISTORY: +preg, lower abd cramping US OB 1st trimester transabdominal and transvaginal Comparison: None Findings: Cystic structure within the imaged endometrium is favored to represent single intrauterine is a single pole is demonstrated. Imaged crown-rump length is 0.2 cm estimated gestational age of 5 weeks and 6 days +/-1 week. Adjacent cystic structure favored to represent yolk sac within the gestational sac. Borders of the gestational sac are partly obscured. Intrauterine is favored by submitted cine. Linear low echogenicity measures 0.2 x 0.3 x 0.7 cm in favored to represent a small focus of the subchorionic hemorrhage. Right ovary measures 2.7 x 1.8 x 1.7 cm. Left ovary measures 3.2 x 2.3 x 1.9 cm. Prominent cystic structure of the left ovary measures 2 cm diameter with internal echogenicity concerning for yolk sac and separate pole. This raises imaging concern for heterotopic . No significant free fluid in the imaged pelvis. IMPRESSION: 1. Question pole in the 2 cm cystic structure of the left ovary. This raises imaging concern for heterotopic . Recommend trending quantitative beta HCG data. Short-term follow-up pelvic ultrasound can be determined on a clinical basis. 2. Small focus of the subchorionic hemorrhage adjacent to single intrauterine . With estimated gestational age of 5 weeks and 6 days +/-1 week. 3. No free fluid in the imaged pelvis at this time. 4. No ultrasound findings of ovarian torsion. This document has been electronically signed by: Enzo Martinez MD on 06/06/2024 19:20:29
[2024-06-06 16:04] VITALS: BP 134/89; PULSE 90; RESP 18; TEMP 36.6; O2SAT 98; BMI 24.1
--- NOTE | 2024-06-06 16:10 | ED.ABDPAIN ---
HPI - Abdominal Pain General Chief Complaint: Abdominal Pain Stated Complaint: preg feeling pain Time Seen by Provider: 06/06/24 19:21 Source: patient Mode of arrival: ambulatory Limitations: no limitations History of Present Illness ED Provider: HPI narrative: Patient is 33 years old 4 para 1 2 miscarriages in 16 weeks gestation comes here for left lower abdominal discomfort which is going on for last 1 month which increases on standing and ambulation tested positive for no vaginal bleed slight nausea no vomiting Related Data Previous Rx's ?Medication ?Instructions ?Recorded benzonatate 200 mg capsule 200 mg PO TID PRN cough #20 caps 04/10/21 fluticasone propionate 50 2 spray intranasal DAILY #16 grams 04/10/21 mcg/actuation nasal spray,suspension (Flonase Allergy Relief) pantoprazole 40 mg tablet,delayed 40 mg PO DAILY #14 tabs 08/28/21 release (Protonix) ondansetron 4 mg disintegrating 4 mg PO Q8H PRN N/V #14 tabs 10/13/21 tablet pantoprazole 40 mg tablet,delayed 40 mg PO DAILY GERD #30 tabs 10/13/21 release (Protonix) prednisone 20 mg tablet 40 mg (2 x 20 mg) PO DAILY #8 tabs 03/10/22 tnmqjwqxic-qqqaovneuhvym-ewcmnhcl 1 tab PO Q6H PRN haeadace #20 tabs 11/14/23 50 mg-325 mg-40 mg tablet Allergies Allergy/AdvReac Type Severity Reaction Status Date / Time No Known Allergies Allergy Verified 06/06/24 16:06 Review of Systems Review of Systems Yes all other systems are reviewed and are negative PMFSH Past Medical History Medical History No known health problems Social History Social History Alcohol intake: current Alcohol intake frequency: holidays/special occasions only Alcohol type: beer Patient Tobacco Use Status: Never used Tobacco Smoked in Last 30 Days: No Use of substances other than those prescribed or required for medical reasons: No Advance Directives: No Advance Directives Information Provided: No Do you have a plan to hurt others: No Plan Physical Exam ED Vital Signs: Vital Signs - 24 hr 06/06/24 16:04 06/06/24 20:40 06/06/24 20:59 Temperature 98 F 98.2 F 98.2 F Pulse Rate 90 97 97 Respiratory Rate 18 16 16 Blood Pressure 134/89 120/90 H 120/90 H Pulse Oximetry 98 100 100 Oxygen Delivery Method Room Air Room Air BMI result Body Mass Index 24.1 Appearance: Alert. Oriented X3. No acute distress. Eyes: PERRLA, No Nystagmus ENT: Pharynx normal. Oral Mucosa moist Neck: Normal inspection. Neck supple. CVS: Normal heart rate and rhythm. Pulses normal. Respiratory: No respiratory distress. Equal air entry bilateral, no wheezing/rales/rhonchi Abdomen: Soft and nontender. Bowel sounds are present, no mass palpable, no CVA tenderness pelvis: Done by Dr. Ballard OBG tenderness on left no bleeding or secretions Skin: Skin warm and dry. Normal skin color. Normal skin turgor. Extremities: No lower extremity edema. No calf tenderness Neuro: Oriented X 3. No motor deficit. Course Course Course Narrative: This is a Rapid Medical Examination (RME) performed by Angy Lizarraga PA-C in triage. Full HPI, ROS, assessment and treatment plan per primary provider in the Main ED. 33 yo female here for eval of intermittent abdominal pain x1 month. admits to positive home test yesterday. denies N/V. denies abd pain at present. no vaginal bleeding/ discharge. Plan: labs, UA, u preg, hcg Medical Decision Making Medical Decision Making [facility] Narrative: Patient with 5 weeks +6 days IUP and 2 cm cystic structure in the left ovary possibility of heterotopic case discussed with Dr. Nellie worley OB advised transferred to [facility] case discussed Dr. Mtz at [facility] accepted the patient for further evaluation Differential Diagnosis Differential Diagnoses: The differential diagnosis associated with the presentation includes Ectopic /IUP/ovarian Admission/Observation Consideration of admission/observation: Escalation of care including admission/observation considered Lab Data [facility] Lab Attestation statement: I reviewed the patient's lab results. 06/06/24 16:21 06/06/24 16:21 Labs: Lab Results 06/06/24 Range/Units 16:21 WBC 9.6 (4.8-10.8) X10*3/uL RBC 4.32 (4.20-5.50) X10*6/uL Hgb 12.5 (12.0-16.0) g/dl Hct 37.9 (37.0-47.0) % MCV 87.7 (80.0-98.0) fL MCH 28.9 (27.0-33.0) pg MCHC 33.0 (31.0-35.0) g/dl RDW 12.8 (11.0-16.0) % Plt Count 292 (160-400) X10*3/uL MPV 10.7 (9.4-12.3) fL Immature Gran % (Auto) 0.8 H (0.0-0.4) % Neut % (Auto) 63.7 (45-73) % Lymph % (Auto) 23.9 (20-40) % Long % (Auto) 6.9 (2-11) % Eos % (Auto) 4.0 (0-4) % Baso % (Auto) 0.7 (0-2) % Lymph # (Auto) 2.3 (1.2-4.9) X10*3/uL Long # (Auto) 0.7 (0.1-1.2) X10*3/uL Eos # (Auto) 0.4 (0.0-0.4) X10*3/uL Baso # (Auto) 0.1 (0.0-0.2) X10*3/uL Abs Immat Gran (auto) 0.08 H (0.00-0.03) X10*3/uL Absolute Neuts (auto) 6.1 (2.0-8.3) x10*3/uL Absolute Nucleated RBC 0.000 (0.0-0.012) X10*3/uL Nucleated RBC % (auto) 0.0 (0.0-0.2) /100WBC Sodium 137 (135-145) mmol/L Potassium 3.6 (3.3-5.1) mmol/L Chloride 109 H (96-108) mmol/L Carbon Dioxide 23 (22-29) mmol/L Anion Gap 9 L (12-20) BUN 9 (9-16) mg/dL Creatinine 0.82 (0.5-1.4) mg/dL Estim Creat Clear Calc 77.9 Estimated GFR > 60 Random Glucose 97 (60-115) mg/dL Calcium 9.0 (8.4-10.2) mg/dL Magnesium 2.3 (1.6-2.6) mg/dL Total Bilirubin 0.2 (0.0-1.0) mg/dL AST 24 (5-31) U/L ALT 29 (0-31) U/L Alkaline Phosphatase 76 (39-117) U/L Total Protein 7.8 (6.5-8.0) g/dL Albumin 4.4 (3.5-5.0) g/dL Lipase 37 (8-78) U/L Beta HCG, Quant 51353 mIU/mL Urine Color Yellow Urine Appearance Clear Urine pH 6.5 (5.0-9.0) Ur Specific [place] 1.020 (1.005-1.025) Urine Protein Negative (Neg-Trace) mg/dL Urine Glucose (UA) Negative (Negative) mg/dL Urine Ketones Negative (Negative) mg/dL Urine Blood Negative (Negative) Urine Nitrite Negative (Negative) Ur Leukocyte Esterase Negative (Negative) Urine Test POSITIVE H (NEGATIVE) Independent Interpretation I performed an independent interpretation of an: Ultrasound Radiology Impression Discussion of test interpretation with radiology: I have reviewed the radiologist's reading. Radiologist Impression: [place] [id number] Ultrasound Report Signed with [place] Patient: Nannette Sanches MR#: [id number] : 1990 Acct:[id number] Age/Sex: 33 / F ADM Date: 06/06/24 Loc: .ED Attending Dr: Ordering Physician: Rabia Lizarraga Date of Service: 06/06/24 Procedure(s): US OB pelvic and transvaginal Accession Number(s): [id number] cc: Physician,None ; Rabia Lizarraga~ ADDENDUMThis document has been electronically signed by: Enzo Martinez MD on 06/06/2024 19:20:29 ADDENDUM: This report was discussed with Dr. Clayton on Jun 06, 2024 19:21:00 EST. This document has been electronically signed by: Asiya Kaur on 06/06/2024 19:21:35 Addendum Dictated By: Enzo Martinez MD Addendum Signed By: <Electronically signed by Enzo Martinez MD in OV> 06/06/241921 Addendum Cosigned By: DD/ /20/1920 TD/TT: 06/06/2404/20/1921 CLINICAL HISTORY: +preg, lower abd cramping US OB 1st trimester transabdominal and transvaginal Comparison: None Findings: Cystic structure within the imaged endometrium is favored to represent single intrauterine is a single pole is demonstrated. Imaged crown-rump length is 0.2 cm estimated gestational age of 5 weeks and 6 days +/-1 week. Adjacent cystic structure favored to represent yolk sac within the gestational sac. Borders of the gestational sac are partly obscured. Intrauterine is favored by submitted cine. Linear low echogenicity measures 0.2 x 0.3 x 0.7 cm in favored to represent a small focus of the subchorionic hemorrhage. Right ovary measures 2.7 x 1.8 x 1.7 cm. Left ovary measures 3.2 x 2.3 x 1.9 cm. Prominent cystic structure of the left ovary measures 2 cm diameter with internal echogenicity concerning for yolk sac and separate pole. This raises imaging concern for heterotopic . No significant free fluid in the imaged pelvis. IMPRESSION: 1. Question pole in the 2 cm cystic structure of the left ovary. This raises imaging concern for heterotopic . Recommend trending quantitative beta HCG data. Short-term follow-up pelvic ultrasound can be determined on a clinical basis. 2. Small focus of the subchorionic hemorrhage adjacent to single intrauterine . With estimated gestational age of 5 weeks and 6 days +/-1 week. 3. No free fluid in the imaged pelvis at this time. 4. No ultrasound findings of ovarian torsion. This document has been electronically signed by: Enzo Martinez MD on 06/06/2024 19:20:29 Dictated By: Enzo Martinez MD Signed By: <Electronically signed by Enzo Martinez MD in OV> Discharge Plan Discharge Clinical Impression: Ectopic of left ovary Patient Disposition: [facility] Transfer Details: [facility] for further evaluation DR KASSIE TOPETE Prescriptions: No Action benzonatate 200 mg capsule 200 mg PO TID PRN (Reason: cough) Qty: 20 0RF fluticasone propionate [Flonase Allergy Relief] 50 mcg/actuation spray,suspension 2 spray intranasal DAILY Qty: 16 0RF Rx Instructions: administer into each nostril pantoprazole [Protonix] 40 mg tablet,delayed release (DR/EC) 40 mg PO DAILY Qty: 14 0RF pantoprazole [Protonix] 40 mg tablet,delayed release (DR/EC) 40 mg PO DAILY Qty: 30 0RF ondansetron 4 mg tablet,disintegrating 4 mg PO Q8H PRN (Reason: N/V) Qty: 14 0RF prednisone 20 mg tablet 40 mg PO DAILY Qty: 8 0RF tiinfollvf-krvnzjwuoenqz-shdb 50-325-40 mg tablet 1 tab PO Q6H PRN (Reason: haeadace) Qty: 20 0RF Interventions: Acute Care Transfer Worksheet (ED) Last Done: 06/06/24 20:59 Discharge Date/Time: 06/06/24 21:00 Print Language: Belarusian
[2024-06-06 16:29] LABS: MANUAL DIFF FLAG NO
[2024-06-06 16:32] LABS: Basophils Absolute Auto 0.1 X10*3/uL (0.0-0.2); Basophils Percent Auto 0.7 % (0-2); Eosinophils Absolute Auto 0.4 X10*3/uL (0.0-0.4); Hematocrit 37.9 % (37.0-47.0); Hemoglobin 12.5 g/dl (12.0-16.0); Imm Gran Abs Auto 0.08 X10*3/uL (0.00-0.03); Imm Gran Pct Auto 0.8 % (0.0-0.4); Lymphocytes Absolute Auto 2.3 X10*3/uL (1.2-4.9); Lymphocytes Percent Auto 23.9 % (20-40); Mean Corpuscular Hemoglobin 28.9 pg (27.0-33.0); Mean Corpuscular Volume 87.7 fL (80.0-98.0); Mean Platelet Volume 10.7 fL (9.4-12.3); Monocytes Absolute Auto 0.7 X10*3/uL (0.1-1.2); Monocytes Percent Auto 6.9 % (2-11); Neutrophils Absolute Auto 6.1 x10*3/uL (2.0-8.3); Neutrophils Percent Auto 63.7 % (45-73); Platelet Count 292 X10*3/uL (160-400); Red Blood Count 4.32 X10*6/uL (4.20-5.50); Red Cell Distribution Width 12.8 % (11.0-16.0); White Blood Count 9.6 X10*3/uL (4.8-10.8)
[2024-06-06 16:45] LABS: Appearance Urine Clear; Color Urine Yellow; Glucose Urine UA Negative (Negative); Leukocyte Esterase Urine Negative (Negative); Nitrite Urine Negative (Negative); PH 6.5 (5.0-9.0); Urine Blood Negative (Negative); Urine Ketones Negative (Negative); Urine Protein Negative (Neg-Trace)
[2024-06-06 16:55] LABS: Alanine Aminotransferase 29 U/L (0-31); Albumin Level 4.4 g/dL (3.5-5.0); Alkaline Phosphatase 76 U/L (39-117); Anion Gap 9 (12-20); Aspartate Amino Transferase 24 U/L (5-31); Bilirubin Total 0.2 mg/dL (0.0-1.0); Blood Urea Nitrogen 9 mg/dL (9-16); Carbon Dioxide 23 mmol/L (22-29); Chloride 109 mmol/L (96-108); Creatinine Clr Calc Pharmacy 77.9; Estimated Glomerular Filt Rate > 60; Glucose Random 97 mg/dL (60-115); Lipase 37 U/L (8-78); Magnesium 2.3 mg/dL (1.6-2.6); Potassium 3.6 mmol/L (3.3-5.1); Sodium 137 mmol/L (135-145); Total Protein 7.8 g/dL (6.5-8.0)
[2024-06-06 16:56] LABS: UPreg QC Valid YES; Urine Pregnancy POSITIVE (NEGATIVE)
[2024-06-06 17:24] LABS: HCG Quantitative 21668 mIU/mL
--- NOTE | 2024-06-06 19:35 | PM.GYNCN ---
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 LMP around 6 weeks ago. The patient got spontaneously, no history of in vitro fertilization or artificial reproductive technology Pelvic ultrasound showed the followin. Question pole in the 2 cm cystic structure of the left ovary. This raises imaging concern for heterotopic . Recommend trending quantitative beta HCG data. Short-term follow-up pelvic ultrasound can be determined on a clinical basis. 2. Small focus of the subchorionic hemorrhage adjacent to single intrauterine . With estimated gestational age of 5 weeks and 6 days +/-1 week. 3. No free fluid in the imaged pelvis at this time. 4. No ultrasound findings of ovarian torsion. H&H within normal hCG 12735 UA negative cc:: CC: OB COUNTS INCLUDE 234 BEDS AT THE [facility] Past Medical History Medical History No known health problems Social History Social History Alcohol intake: current Alcohol intake frequency: holidays/special occasions only Alcohol type: beer Patient Tobacco Use Status: Never used Tobacco Meds Allergies Allergy/AdvReac Type Severity Reaction Status Date / Time No Known Allergies Allergy Verified 06/06/24 16:06 APICULTURE TEACHER Physical Exam Vitals Vital signs: Temp Pulse Resp BP Pulse Ox 98 F 90 18 134/89 98 06/06/24 16:04 06/06/24 16:04 06/06/24 16:04 06/06/24 16:04 06/06/24 16:04 BMI result Body Mass Index 24.1 Abdomen Auscultation/Inspection/Palpation: Normal bowel sounds, Soft and No tenderness Female Genitalia (Pelvic) Bladder/Urethra: Normal meatus Vulva: No lesions Vagina: Nontender Cervix: Grossly normal Uterus: Normal size Adnexa/Parametria: Adnexal Tenderness: Left and Adnexal Mass: Left APICULTURE TEACHER - Results Labs 06/06/24 16:21 06/06/24 16:21 Labs: Short CBC 06/06/24 Range/Units 16:21 WBC 9.6 (4.8-10.8) X10*3/uL Hgb 12.5 (12.0-16.0) g/dl Hct 37.9 (37.0-47.0) % Plt Count 292 (160-400) X10*3/uL BMP 06/06/24 16:21 Sodium 137 Potassium 3.6 Chloride 109 H Carbon Dioxide 23 BUN 9 Creatinine 0.82 Calcium 9.0 Liver Function 06/06/24 Range/Units 16:21 Total Bilirubin 0.2 (0.0-1.0) mg/dL AST 24 (5-31) U/L ALT 29 (0-31) U/L Alkaline Phosphatase 76 (39-117) U/L Albumin 4.4 (3.5-5.0) g/dL Urine 06/06/24 Range/Units 16:21 Urine Color Yellow Urine Appearance Clear Urine pH 6.5 (5.0-9.0) Ur Specific [place] 1.020 (1.005-1.025) Urine Protein Negative (Neg-Trace) mg/dL Urine Glucose (UA) Negative (Negative) mg/dL Urine Test POSITIVE H (NEGATIVE) Assessment and Plan (1) Ectopic of left ovary: Status: Acute Plan Discussed with the patient the finding on ultrasound showing intrauterine with possible left ectopic ovarian , raising the possibility of heterotopic , hCG 21,668. Explained to the patient the rare incidence of this condition and the importance of accurate diagnosis. Recommend transfer to [facility] for further management where more resources are available and expertise needed for thediagnosis and treatment of such a rare condition. All questions answered, the patient verbalized understanding and agreed with the plan Discussed the case with Dr. Candelaria
--- NOTE | 2024-06-06 20:25 | MHC.EDTECH ---
Assisted with a pelvic exam,swabs obtained and sent to lab. pt tolerated procedure well
[2024-06-06 20:40] VITALS: BP 120/90; PULSE 97; RESP 16; TEMP 36.8; O2SAT 100
--- NOTE | 2024-06-06 20:58 | PC.NURSE ---
Called [facility] spoke to Jennifer BLACKBURN for RN to RN report, all questions answered, patient to drive over to [facility] via private vehicle.
[2024-06-06 20:59] VITALS: BP 120/90; PULSE 97; RESP 16; TEMP 36.8; O2SAT 100
== END 2024-06-06 21:00 | disposition short-term general hospital (02) ==
PROVIDERS: Physician Assistant Medical; Emergency Provider Internal Medicine
DX: O00.202 Left ovarian pregnancy without intrauterine pregnancy (principal); O26.891 Other specified pregnancy related conditions, first trimester; R10.32 Left lower quadrant pain; Z3A.01 Less than 8 weeks gestation of pregnancy
CPT/HCPCS: 36415; 76801; 76817; 80053; 81003; 81025; 83690; 83735; 84702; 85025; 99285

== ENCOUNTER → 2024-06-06 16:18 | Outpatient (BNV) | payer MEDICAID, SELFPAY | PROVIDERS: Emergency Provider Internal Medicine; Visit Provider Obstetrics & Gynecology | DX: O00.202 Left ovarian pregnancy without intrauterine pregnancy (principal) | CPT/HCPCS: 99283 ==

== ENCOUNTER 2024-08-07 12:17 | Outpatient (REF) | payer MEDICAID, SELFPAY ==
[2024-08-07 13:37] LABS: MANUAL DIFF FLAG NO
[2024-08-07 13:54] LABS: Basophils Percent Auto 0.3 % (0-2); Eosinophils Absolute Auto 0.1 X10*3/uL (0.0-0.4); Eosinophils Percent Auto 1.1 % (0-4); Hematocrit 34.8 % (37.0-47.0); Imm Gran Abs Auto 0.08 X10*3/uL (0.00-0.03); Imm Gran Pct Auto 0.9 % (0.0-0.4); Lymphocytes Absolute Auto 1.5 X10*3/uL (1.2-4.9); Lymphocytes Percent Auto 16.1 % (20-40); Mean Corpuscular HGB Conc 34.5 g/dl (31.0-35.0); Mean Corpuscular Hemoglobin 29.2 pg (27.0-33.0); Mean Corpuscular Volume 84.7 fL (80.0-98.0); Mean Platelet Volume 11.8 fL (9.4-12.3); Monocytes Absolute Auto 0.3 X10*3/uL (0.1-1.2); Neutrophils Absolute Auto 7.3 x10*3/uL (2.0-8.3); Neutrophils Percent Auto 78.6 % (45-73); Platelet Count 249 X10*3/uL (160-400); Red Blood Count 4.11 X10*6/uL (4.20-5.50); Red Cell Distribution Width 13.4 % (11.0-16.0); White Blood Count 9.2 X10*3/uL (4.8-10.8)
--- OUTSIDE RECORDS SUMMARY | 2024-08-07 13:54 | XMS_ITS | Encounter Summary ---
Author Organization [employer] Address [address] [place] [address] [address] [place] [address] Care Team Providers Care Pet Crematory Worker Name Role Phone Jose J Bradford CNP Primary Care Provider [phone] Reason for Visit * Reason Comments Care Coordination [id number]/EARNESTINE Muniz#[id number] Encounter Details Date Type Department Care Team (Latest Contact Info) Description 08/03/2024 Patient Outreach [facility] [address] [place] [address] Jose J Bradford CNP [address] [place] [address] Care Coordination (Daria/EARNESTINE Pina#[id number]) Social History Tobacco Use Types Packs/Day Years Used Date Smoking Tobacco: Never Passive Smoke Exposure: Never Smokeless Tobacco: Never Alcohol Use Standard Drinks/Week Comments Never 0 (1 standard drink = 0.6 oz pur e alcohol) Depression Answer Date Recorded Patient Health Questionnaire-9 Score 11 07/31/2024 Patient Health Questionnaire-9 Score 11 07/31/2024 Last PHQ-9: Questionnaire Data Not on file 0 07/31/2024 Housing Stability Answer Date Recorded What is your housing situation today? I have odalys story 07/24/[address] you li ve. Do you have problems with any of the following? None of the above 07/24/2024 Food Insecurity Answer Date Recorded Within the past 12 months, y ou worried that your food would run out before you got money to buy more: Sometimes True 2024 Within the past 12 months,th e food you bought just didn't last and you didn't have enough money to get more: Sometimes True 07/31/2024 Transportation Answer Date Recorded In the past 12 months, has l ack of transportation kept you from medical appts, meetings, work or from getting things needed for daily living? No 07/24/2024 Utilities Answer Date Recorded In the past 12 months, has t he electric, gas, oil or water company threatened to shut off services in your home? No 07/24/2024 Depression Answer Date Recorded Patient Health Questionnaire-2 Score 2 07/31/2024 Internet Access Answer Date Recorded Internet Access Q1 Yes 07/24/2024 Internet Access Q2 Not on file 07/24/2024 Comments Yes Sex and Gender Information Value Date Recorded Sex Assigned at Female 11/22/2023 10:58 AM EDT Legal Sex Female 10:49 AM EDT Gender Identity Female 11/22/2023 10:58 AM EDT Sexual Orientation Straight 11/22/2023 10 :58 AM EDT documented as of this encounter Progress Notes * Rachel Lagos - 08/03/2024 1:25 PM EDT CHW Rachel Lagos placed outbound call to patient in regards to offer services CM/CHW program services. No answer at this time. CHW LVM introducing herself from [facility] CM Department with CHW's name, department and direct contact number requesting call back. Will re-attempt to contact within 5 days. and address not confirmed. documented in this encounter Plan of Treatment Not on file documented as of this encounter Visit Diagnoses Not on filedocumented in this encounter Additional Health Concerns Assessment Noted Time PHQ-9 Depression Total Score: 11 025 2:26 PM EST documented as of this encounter Care Teams Pet Crematory Worker Relationship Specialty Start Date End Date Jose J Bradford CNP [address] [place] [address] PCP - General Family Medicine 07/31/24 documented as of this encounter
--- OUTSIDE RECORDS SUMMARY | 2024-08-07 13:54 | XMS_ITS | Encounter Summary ---
Author Organization [employer] Address [address] [facility] [address] [place] [address] Care Team Providers Care Drug And Alcohol Counselor Name Role Phone BradfordJose J JP Primary Care Provider [phone] Encounter Details Date Type Department Care Team (Latest Contact Info) Description 07/31/2024 Travel Social History Tobacco Use Types Packs/Day Years [...] Access Q2 Not on file 07/24/2024 Comments Unknown Sex and Gender Information Value Date Recorded Sex Assigned at Female 11/22/2023 10:58 AM EDT Legal Sex Female 10:49 AM EDT Gender Identity Female 11/22/2023 10:58 AM EDT Sexual Orientation Straight 11/22/2023 10 :58 AM EDT documented as of this encounter Plan of Treatment Not on file documented as of this encounter Visit Diagnoses Not on filedocumented in this encounter Additional Health Concerns Assessment Noted Time PHQ-9 Depression Total Score: 11 025 2:26 PM EST documented as of this encounter Care Teams Drug And Alcohol Counselor Relationship Specialty Start Date End Date Jose J Bradford CNP [address] [place] [id number] PCP - General Family Medicine 07/31/24 documented as of this encounter
--- OUTSIDE RECORDS SUMMARY | 2024-08-07 13:54 | XMS_ITS | Encounter Summary ---
Author Organization [employer] Address [address] [facility] 7 [place] [address] Care Team Providers Care Tooth Grinder Name Role Phone Unavailable Primary Care Provider Unavailabl e Reason for Visit * Reason Comments Pre-visit Planning SDOH negative, Tobac co screening negative. Encounter Details Date Type Department Care Team ([facility] st Contact Info) Description 07/24/2024 Patient Outreach [facility] [address] [place] [address] Jose J Bradford, GROCERY STOCKER [address] [place] [address] Pre-visit Planning (SDOH negative, Tobacco screening negative. ) Social History Tobacco Use Types Packs/Day Years Used Date Smoking Tobacco: Never Passive Smoke Exposure: Never Smokeless Tobacco: Never Alcohol Use Standard Drinks/Week Comments Never 0 (1 standard drink = 0.6 oz pur e alcohol) Housing Stability Answer Date Recorded What is your housing situation today? I have odalys story 07/24/[address] you li ve. Do you have problems with any of the following? None of the above 07/24/2024 Food Insecurity Answer Date Recorded Within the past 12 months, y ou worried that your food would run out before you got money to buy more: Often true 07/24/2024 Within the past 12 months,th e food you bought just didn't last and you didn't have enough money to get more: Often true Transportation Answer Date Recorded In the past 12 months, has l ack of transportation kept you from medical appts, meetings, work or from getting things needed for daily living? No 07/24/2024 Utilities Answer Date Recorded In the past 12 months, has t he electric, gas, oil or water company threatened to shut off services in your home? No 07/24/2024 Internet Access Answer Date Recorded Internet Access Q1 Yes 07/24/2024 Internet Access Q2 Not on file 07/24/2024 Comments Unknown Sex and Gender Information Value Date Recorded Sex Assigned at Female 11/22/2023 10:58 AM EDT Legal Sex Female 10:49 AM EDT Gender Identity Female 11/22/2023 10:58 AM EDT Sexual Orientation Straight 11/22/2023 10 :58 AM EDT documented as of this encounter Progress Notes * Dora Cochran - 07/24/2024 11:43 AM EST FERN Garrido placed successful outbound call to patient for pre-visit planning. Patient name and confirmed. Patient confirms appt date and time, and has transportation arrangements. Biggest concern for appointment at this time is constat headaches. Appropriate screenings completed in anticipation of appointment. SDOH positive, patient needs assistance with food insecurities. documented in this encounter Plan of Treatment Not on file documented as of this encounter Visit Diagnoses Not on filedocumented in this encounter
--- OUTSIDE RECORDS SUMMARY | 2024-08-07 13:54 | XMS_ITS | Clinical Summary ---
Author Organization [employer] Address [address] [facility] 7[address] [place] [address] Care Team Providers Care Application Software Engineer Name Role Phone SanchezGulshanzuribronwyn JP Primary Care Provider [phone] Allergies No known active allergies Medications Doxylamine-Pyri doxine 10-10 MG tablet delayed-release Indications:Austen sea and vomiting in Take 2 tablets by mouth at bedtime. 60 tablet 1 08/08/19 25 Active multivitamin () 27-0.8 MG tabletIndicatio ns:12 weeks gestation of Take 1 tablet by mouth Once per day. 30 tablet 08/08/19 25 Active acetaminophen (Tylenol Extra Strength) 500 MG tabletIndicatio ns:Nonintractab le headache, unspecified chronicity pattern, unspecified headache type Take 1 tablet (500 mg) by mouth every 8 (eight) hours if needed for headaches for up to 10 days. 30 tablet 08/08/19 25 025 Active acetaminophen (Tylenol) 500 MG tablet Take 1 tablet (500 mg) by mouth every 6 (six) hours if needed for mild pain for up to 20 doses. 20 tablet 02/06/20 24 025 Discontinued ibuprofen 600 MG tablet Take 1 tablet (600 mg) by mouth every 6 (six) hours if needed for mild pain for up to 20 doses. 20 tablet 02/06/20 24 025 Discontinued(Pr egnancy) acetaminophen (Tylenol Extra Strength) 500 MG tabletIndicatio ns:Nonintractab le headache, unspecified chronicity pattern, unspecified headache type Take 1 tablet (500 mg) by mouth every 8 (eight) hours if needed for headaches for up to 10 days. 30 tablet 08/01/19 25 025 Discontinued Doxylamine-Pyri doxine 10-10 MG tablet delayed-release Indications:Austen sea and vomiting in Take 2 tablets by mouth at bedtime. 60 tablet 1 08/01/19 25 025 Discontinued multivitamin () 27-0.8 MG tabletIndicatio ns:12 weeks gestation of Take 1 tablet by mouth Once per day. 30 tablet 08/04/19 25 025 Discontinued Active Problems Problem Noted Date Diagnosed Date Routine eye exam 08/03/2024 Assessment & Plan (08/03/2024 12:33 PM EDT): Referred to vision center at [facility] Nausea and vomiting in 08/03/2024 Assessment & Plan (08/03/2024 12:35 PM EDT): Physical exam wnl Pt able to keep foods/fluids down Sent rx for doxylamine and B6 for n/v Advised small frequent meals and ample hydration Nonintractable headache 08/03/2024 Assessment & Plan (08/03/2024 12:36 PM EDT): No REIS red flags including diplopia, thunder clap REIS, worst REIS of life, increase in frequency or severity. Advised pt to take tylenol prn for pain relief Advised against motrin, aleve, ibuprofen during Advised ample hydration 12 weeks gestation of 08/03/2024 Assessment & Plan (08/03/2024 12:37 PM EDT): Physical exam wnl today, no cramping, vaginal bleeding, abdominal pain, shoulder pain or back pain Sent rx for vitamin Pt plans to f/u with [facility]. Healthcare maintenance 08/03/2024 Assessment & Plan (08/03/2024 12:39 PM EDT): Vision: due, referral placed Dental: due, referral placed Breast CA: n/a Cervical CA: due, pt plans to complete with OBGYN Colon CA: n/a Lung CA: n/a Labs: none at this time IMMs: due for covid/flu, hep b, pt declines at this time Positive depression screening 08/03/2024 Assessment & Plan (08/03/2024 12:40 PM EDT): No SI/HI, would benefit from a therapist Referral to BH placed today Non-restorable tooth 03/23/2024 Extruded tooth 02/06/2024 Severe dental caries 11/22/2023 Fractured dental uatsdin with loss of materi al 11/22/2023 Comments Yes Encounters Date Type Department Care Team Description 08/03/2024 Patient Outreach [address] [id number] Jose J Bradford CNP Care Coordination ([facility] EARNESTINE Perales#[id number]) 07/31/2024 2:15 PM EST Office Visit [address] [address] Jose J Bradford CNP Routine eye exam (Primary Dx); Nausea and vomiting in ; Nonintractable headache, unspecified chronicity pattern, unspecified headache type; 12 weeks gestation of ; Healthcare maintenance; Positive depression screening 07/31/2024 Travel 07/29/[address] [address] Anna Azar, RN Care Management ([facility] chart review) 07/24/2024 Patient Outreach [address] [address] Jose J Bradford CNP Care Coordination ([facility] outreach for SDOH food needs-referral completed /) 07/24/2024 Patient Outreach [facility] [address] [place], [place] [id number] Jose J Bradford CNP Pre-visit Planning (SDOH negative, Tobacco screening negative. ) 07/16/[address] [address] Jose J Bradford CNP Chart Prep 06/24/[address] [address] Andrew Shannon MD New patient appt. from Last 3 Months Immunizations Name Administration Dates Next Due Pfizer Covid-19 Vaccine 12+ 06/10/2021 Pfizer Covid-19 Vaccine 12+ deinta-sucrose (Bojorquez C ap) 07/01/2021 Social History Tobacco Use Types Packs/Day Years Used Date Smoking Tobacco: Never Passive Smoke Exposure: Never Smokeless Tobacco: Never Tobacco Cessation:Counseling Given: No Alcohol Use Standard Drinks/Week Comments Never 0 [...] Orientation Straight 11/22/2023 10 :58 AM EDT Last Filed Vital Signs Vital Sign Reading Time Taken Comments Blood Pressure 118/68 07/31/2024 2:01 PM EST Pulse 74 07/31/2024 2:01 PM EST Temperature 36.7 ??C (98.1 ??F) 07/31/2024 2:01 PM ES T Respiratory Rate 18 07/31/2024 2:01 PM EST Oxygen Saturation 98% 07/31/2024 2:01 PM EST Inhaled Oxygen Concentration - - Weight 54.4 kg (120 lb) 07/31/2024 2:01 PM EST Height - - Body Mass Index - - Plan of Treatment Health Maintenance Due Date Last Done Comments Dental Oral Exam 1992 Dental Prophylaxis 1992 Dental X-Ray: Bitewings 1992 HIV Screening 1992 Alcohol/Substance Use Screening 2004 Family Planning (PISQ) 08/02/2007 Hepatitis C Screening 2010 DTaP/Tdap/Td Vaccines (1 - Tdap) 08/02/2011 Hepatitis B Vaccines (1 of 3 - 19+ 3-dose series) 08/02/2011 Pap Smear 2013 Cervical Cancer Screening 2022 HPV/Cotest 2022 COVID-19 Vaccine (3 - 2023-2 5 season) 2024 07/01/2021, 06/10/2021 Influenza Vaccine (#1) 2024 Depression Monitoring (PHQ-9) 01/31/2025, 07/31/2024 Depression Screening 07/31/2025 07/31/2024, 07/31/2024 SDOH Screening 07/31/2025 07/31/2024 Tobacco Screening 08/03/2025 08/03/2024 Dental X-Ray: Full Mouth 02/06/2027 024, 11/22/2023 Zoster Vaccines (1 of 2) 2042 RSV Patients and Patients Aged 60 years or older (1 - 1-dose 75+ series) 08/02/2067 HIB Vaccines Aged Out No longer eligi ble based on patient's age to complete this topic HPV Vaccines Aged Out No longer eligi ble based on patient's age to complete this topic Hepatitis A Vaccines Aged Out No long er eligible based on patient's age to complete this topic IPV Vaccines Aged Out No longer eligi ble based on patient's age to complete this topic Meningococcal Vaccine Aged Out No michele vivien eligible based on patient's age to complete this topic Pneumococcal Vaccine: Pediatrics (0 to 5 Years) and At-Risk Patients (6 to 49) Years) Aged Out No longer eligible b ased on patient's age to complete this topic RSV under 20 months Aged Out No longe r eligible based on patient's age to complete this topic Rotavirus Vaccines Aged Out No longer eligible based on patient's age to complete this topic Procedures Procedure Name Priority Date/Time Associated Diagnosis Comments PANORAMIC RADIOGRAPHIC IMAGE Routine 02/06/2024 1:00 PM EDT from Last 3 Months or Most Recently Relevant to Health Maintenance Insurance [facility] C3 DENTAL-[facility] MEDICAID LIMITED ADULT DENTAL - HSN FULL (MEDICAID) Care Teams Application Software Engineer Relationship Specialty Start Date End Date Jose J Bradford CNP [address] [place] [address] [phone] PCP - General Family Medicine 07/31/24
--- OUTSIDE RECORDS SUMMARY | 2024-08-07 13:54 | XMS_ITS | Encounter Summary ---
Author Organization [employer] Address [address] [place] [address] [address] [place] [address] Care Team Providers Care Keg Filler Name Role Phone Aissatou Bradford CNP Primary Care Provider [phone] Reason for Referral * Consultation (Routine) - Authorized Specialty Diagnoses / Procedures Referred By Stepan maya Referred To Contact Behavioral Health Diagnoses Positive depression screening Aissatou Bradford CNP [address] [place] [address] Phone: tel: fax: Referral ID Status Reason Start Date Expiration Date Visits Requested Visits Authorized [id number] Authorized Specialty Services Required 08/03/2024 08/03/2025 1 1 * Consultation (Routine) - Authorized Specialty Diagnoses / Procedures Referred By Stepan maya Referred To Contact Dental Boot Lace Cutter Machine / Dentistry Diagnoses Healthcare maintenance Aissatou Bradford CNP [address] [place] [address] Phone: tel: fax: Referral ID Status Reason Start Date Expiration Date Visits Requested Visits Authorized [id number] Authorized Consult and Treat 08/03/2024 08/03/2025 1 1 * Consultation (Routine) - Authorized Specialty Diagnoses / Procedures Referred By Stepan maya Referred To Contact Optometry Diagnoses Routine eye exam Aissatou Bradford CNP [address] [place] [address] Phone: tel: fax: [facility] OPTOMETRY [address] [place] [address] Phone: tel: fax: Referral ID Status Reason Start Date Expiration Date Visits Requested Visits Authorized [id number] Authorized Consult and Treat 07/31/2024 07/31/2025 1 1 Reason for Visit * Reason Comments New Pt Encounter Details Date Type Department Care Team (Late st Contact Info) Description 07/31/2024 2:15 PM EST Office Visit [facility] [address] [place] [address] Aissatou Bradford CNP [address] [place] [address] Routine eye exam (Primary Dx); Nausea and vomiting in ; Nonintractable headache, unspecified chronicity pattern, unspecified headache type; 12 weeks gestation of ; Healthcare maintenance; Positive depression screening Social History Tobacco Use Types Packs/Day Years [...] AM EDT documented as of this encounter Last Filed Vital Signs Vital Sign Reading [...] - - Body Mass Index - - documented in this encounter Progress Notes * Aissatou Bradford CNP - 07/31/2024 2:15 PM EST Subjective: Nannette Sanches is a 34 y.o. female who presents to the office for a new patient visit. Previous PCPunknown. Interim history: ECTOR 01/31/25, specialist [facility] . Has hx significant for asthma, delivery, miscarriages. Current concerns: Establishing routine care History reviewed. No pertinent surgical history. No family history on file. Social History Living situation: Has secure housing at this moment, lives with son and . Feels safe at home. 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 Patient is . No Known Allergies Review of Systems Constitutional: Negative for appetite change, chills, diaphoresis, fatigue, fever and unexpected weight change. Respiratory: Negative for apnea, cough, chest tightness, shortness of breath and wheezing. Cardiovascular: Negative for chest pain and palpitations. Gastrointestinal: Positive for nausea. Negative for abdominal distention, abdominal pain, blood in stool, constipation, diarrhea and vomiting. Skin: Negative for pallor. Neurological: Positive for headaches. Negative for dizziness, syncope, speech difficulty, weakness,light-headedness and numbness. Vitals: 07/31/24 1401 BP: 118/68 Pulse: 74 Resp: 18 Temp: 98.1 ??F (36.7 ??C) TempSrc: Oral SpO2: 98% Weight: 120 lb (54.4 kg) Physical Exam Constitutional: General: She is not in acute distress. Appearance: Normal appearance. She is not ill-appearing. HENT: Head: Normocephalic and atraumatic. Right Ear: Tympanic membrane, ear canal and external ear normal. There is no impacted cerumen. Left Ear: Tympanic membrane, ear canal and external ear normal. There is no impacted cerumen. Nose: No congestion or rhinorrhea. Mouth/Throat: Mouth: Mucous membranes are moist. Pharynx: No oropharyngeal exudate or posterior oropharyngeal erythema. Eyes: General: No scleral icterus. Right eye: No discharge. Left eye: No discharge. Extraocular Movements: Extraocular movements intact. Pupils: Pupils are equal, round, and reactive to light. Cardiovascular: Rate and Rhythm: Normal rate and regular rhythm. Pulses: Normal pulses. Heart sounds: Normal heart sounds. No murmur heard. No friction rub. No gallop. Pulmonary: Effort: Pulmonary effort is normal. No respiratory distress. Breath sounds: Normal breath sounds. No stridor. No wheezing, rhonchi or rales. Chest: Chest wall: No tenderness. Abdominal: General: Abdomen is flat. Bowel sounds are normal. There is no distension. Palpations: Abdomen is soft. There is no mass. Tenderness: There is no abdominal tenderness. There is no guarding. Musculoskeletal: General: Normal range of motion. Cervical back: Normal range of motion and neck supple. No tenderness. Right lower leg: No edema. Left lower leg: No edema. Lymphadenopathy: Cervical: No cervical adenopathy. Skin: General: Skin is warm and dry. Capillary Refill: Capillary refill takes less than 2 seconds. Neurological: General: No focal deficit present. Mental Status: She is alert and oriented to person, place, and time. Psychiatric: Mood and Affect: Mood normal. Behavior: Behavior normal. Thought Content: Thought content normal. Judgment: Judgment normal. Problem List Items Addressed This Visit Routine eye exam - Primary Current Assessment & Plan Referred to vision center at [facility] Relevant Orders Referral to [facility] Eye Care Nausea and vomiting in Current Assessment & Plan Physical exam wnl Pt able to keep foods/fluids down Sent rx for doxylamine and B6 for n/v Advised small frequent meals and ample hydration Relevant Medications Doxylamine-Pyridoxine 10-10 MG tablet delayed-release Nonintractable headache Current Assessment & Plan No REIS red flags including diplopia, thunder clap REIS, worst REIS of life, increase in frequency or severity. Advised pt to take tylenol prn for pain relief Advised against motrin, aleve, ibuprofen during Advised ample hydration Relevant Medications acetaminophen (Tylenol Extra Strength) 500 MG tablet 12 weeks gestation of Current Assessment & Plan Physical exam wnl today, no cramping, vaginal bleeding, abdominal pain, shoulder pain or back pain Sent rx for vitamin Pt plans to f/u with [facility]. Relevant Medications multivitamin () 27-0.8 MG tablet Healthcare maintenance Current Assessment & Plan Vision: due, referral placed Dental: due, referral placed Breast CA: n/a Cervical CA: due, pt plans to complete with OBGYN Colon CA: n/a Lung CA: n/a Labs: none at this time IMMs: due for covid/flu, hep b, pt declines at this time Relevant Orders Referral to [facility] Dental Adult Positive depression screening Current Assessment & Plan No SI/HI, would benefit from a therapist Referral to placed today Relevant Orders Referral to Behavioral Health [facility] RIVET PASSER Attestation RIVET PASSER Resident Attestation: Patient was seen and evaluated by Aissatou Bradford CNP, in collaboration with Yang Gates MD whohas reviewed my assessment and plan. I, Yang Gates MD, have reviewed the resident's note and agree with the assessment & plan of care as documented above. documented in this encounter Miscellaneous Notes * Assessment & Plan Note - Aissatou Bradford CNP - 08/03/2024 12:40 PM EDT Associated Problem(s): Positive depression screening No SI/HI, would benefit from a therapist Referral to placed today * Assessment & Plan Note - Aissatou Bradford CNP - 08/03/2024 12:39 PM EDT Associated Problem(s): Healthcare maintenance Vision: due, referral placed Dental: due, referral placed Breast CA: n/a Cervical CA: due, pt plans to complete with OBGYN Colon CA: n/a Lung CA: n/a Labs: none at this time IMMs: due for covid/flu, hep b, pt declines at this time * Assessment & Plan Note - Aissatou Bradford CNP - 08/03/2024 12:37 PM EDT Associated Problem(s): 12 weeks gestation of Physical exam wnl today, no cramping, vaginal bleeding, abdominal pain, shoulder pain or back pain Sent rx for vitamin Pt plans to f/u with [facility] this week. * Assessment & Plan Note - Aissatou Bradford CNP - 08/03/2024 12:36 PM EDT Associated Problem(s): Nonintractable headache No REIS red flags including diplopia, thunder clap REIS, worst REIS of life, increase in frequency or severity. Advised pt to take tylenol prn for pain relief Advised against motrin, aleve, ibuprofen during Advised ample hydration * Assessment & Plan Note - Aissatou Bradford CNP - 08/03/2024 12:35 PM EDT Associated Problem(s): Nausea and vomiting in Physical exam wnl Pt able to keep foods/fluids down Sent rx for doxylamine and B6 for n/v Advised small frequent meals and ample hydration * Assessment & Plan Note - Aissatou Bradford CNP - 08/03/2024 12:33 PM EDT Associated Problem(s): Routine eye exam Referred to vision center at [facility] * Addendum Note - Aissatou Bradford CNP - 07/31/2024 2:15 PM ESTAddended by: AISSATOU BRADFORD on: 08/07/2024 12:06 PM Modules accepted: Orders documented in this encounter Plan of Treatment Scheduled Orders Name Type Priority Associated Diagnoses Orde r Schedule HIV-1/2 Antigen and Antibodies, Fourth Generation, with Reflexes Lab Routine Healthcare maintenance Expected: 08/07/2024 (Approximate), Expires: 08/07/2025 Hepatitis C Antibody with Reflex to HCV, RNA, Quantitative, Real-Time PCR Lab Routine Healthcare maintenance Expected: 08/07/2024, Expires: 08/07/2025 CBC auto differential Lab Routine Healthcare maintenance Expected: 08/07/2024 (Approximate), Expires: 08/07/2025 Comprehensive Metabolic Panel Lab Routine Healthcare maintenance Expected: 08/07/2024 (Approximate), Expires: 08/07/2025 Scheduled Referrals Name Type Priority Associated Diagnoses Orde r Schedule Referral to [facility] Eye Care Outpatient Referral Routine Routine eye exam Expected: 07/31/2024 (Approximate), Expires: 07/31/2025 Referral to [facility] Dental Adult Outpatient Referral Routine Healthcare maintenance Expected: 08/03/2024 (Approximate), Expires: 08/03/2025 Referral to Behavioral Health Outpatient Referral Routine Positive depression screening Expected: 08/03/2024 (Approximate), Expires: 08/03/2025 documented as of this encounter Visit Diagnoses Diagnosis Routine eye exam- Primary Examination of eyes and vision Nausea and vomiting in Unspecified vomiting of , unspecified as to episode of care Nonintractable headache, unspecified chronicity pattern, unspecified headache type 12 weeks gestation of Healthcare maintenance Positive depression screening documented in this encounter Additional Health Concerns Assessment Noted Time PHQ-9 Depression Total Score: 11 025 2:26 PM EST documented as of this encounter Care Teams Keg Filler Relationship Specialty Start Date End Date Aissatou Bradford CNP [address] [place] [id number] PCP - General Family Medicine 07/31/24 documented as of this encounter
--- OUTSIDE RECORDS SUMMARY | 2024-08-07 13:54 | XMS_ITS | Encounter Summary ---
Author Organization [employer] Address [address] [place] [address] [place] [address] Care Team Providers Care Outside Plant Cable Engineer Name Role Phone Unavailable Primary Care Provider Unavailabl e Reason for Visit * Reason Comments Care Coordination CHW outreach for SDO H food needs-referral completed Encounter Details Date Type Department Care Team (Latest Contact Info) Description 07/24/2024 Patient Outreach [facility] [address] [place] [address] Jose J Bradford CNP [address] [place] [address] Care Coordination ([facility] outreach for SDOH food needs-referral completed /) Social History Tobacco Use Types Packs/Day Years [...] as of this encounter Progress Notes * Black Wagner - 07/24/2024 1:18 PM EST CHW Black Wagner, placed outbound call to patient for assistance with SDOH as a referral was received by the provider. Patient's name and were confirmed. Patient screened positive for the following SDOH food insecurities. CHW referral patient to the local list of pantries in the area for help. Patient verbalizes understanding, and able to agree with plan to follow up. Patient educated on ex tended clinic hours on Mondays through Wednesdays, and Walk-In Urgent Care Located in [facility].Patient provided with after-hours line for [facility], , which offer night time triage serviceand option to transfer to institution director provider if needed. documented in this encounter Plan of Treatment Not on file documented as of this encounter Visit Diagnoses Not on filedocumented in this encounter
--- OUTSIDE RECORDS SUMMARY | 2024-08-07 13:54 | XMS_ITS | Encounter Summary ---
Author Organization [email or web address] Address [address] [place] [address] Care Team Providers Care Pony Ride Operator Name Role Phone Unavailable Primary Care Provider Unavailabl e Reason for Visit * Reason Comments Care Management [facility] chart review Encounter Details Date Type Department Care Team ([facility] st Contact Info) Description 07/29/2024 Telephone [facility] [address] [place] [address] Anna Azar, ALEXEY Care Management ([facility] chart review) Social History Tobacco Use Types Packs/Day Years Used Date Smoking Tobacco: Never Passive Smoke Exposure: Never Smokeless Tobacco: Never Alcohol Use Standard Drinks/Week Comments Never 0 (1 standard drink = 0.6 oz pur e alcohol) Housing Stability Answer Date Recorded What is your housing situation today? I have odalyscali story 07/24/[address] you [...] as of this encounter Progress Notes * Anna Azar - 07/29/2024 8:28 AM EST JAQUELINE Azar RN, performed chart review, in anticipation of initial assessment with patient, as patient has stratified for [facility] Complex Care High risk maternity. History significant for asthma, delivery, miscarriages and with [facility] 01/31/25. Specialists include [facility]. No known ED visits or hospitalizations. Not established with pcp at [facility]. New patient scheduled with Jose J Bradford 07/31/24. documented in this encounter Plan of Treatment Not on file documented as of this encounter Visit Diagnoses Not on filedocumented in this encounter
--- OUTSIDE RECORDS SUMMARY | 2024-08-07 13:54 | XMS_ITS | Encounter Summary ---
Author Organization [employer] Address [address] [place] [address] [address] [place] [address] Care Team Providers Care Seed Laboratory Assistant Name Role Phone Unavailable Primary Care Provider Unavailabl e Reason for Visit * Reason Onset Date Comments Chart Prep 07/16/2024 Encounter Details Date Type Department Care Team ([facility] st Contact Info) Description 07/16/2024 Telephone [facility] [address] [place] [address] Jose J Bradford CNP [address] [place] [address] Chart Prep Social History Tobacco Use Types Packs/Day Years Used Date Smoking Tobacco: Never Passive Smoke Exposure: Never Smokeless Tobacco: Never Alcohol Use Standard Drinks/Week Comments Never 0 (1 standard drink = 0.6 oz pur e alcohol) Comments Unknown Sex and Gender Information Value Date Recorded Sex Assigned at Female 11/22/2023 10:58 AM EDT Legal Sex Female 10:49 AM EDT Gender Identity Female 11/22/2023 10:58 AM EDT Sexual Orientation Straight 11/22/2023 10 :58 AM EDT documented as of this encounter Miscellaneous Notes * Telephone Encounter - Bert Burton MA - 07/16/2024 11:45 AM EST Chart Prep Labs: not applicable Images: not applicable Vaccines due: yes Hep B Flu Covid Tdap Referrals: none Screenings: pap smear Overdue care gaps: Sbirt, SDOH, PHQ-9, CHUCK-7 documented in this encounter Plan of Treatment Not on file documented as of this encounter Visit Diagnoses Not on filedocumented in this encounter
[2024-08-07 14:20] LABS: Alanine Aminotransferase 19 U/L (0-31); Albumin Level 3.6 g/dL (3.5-5.0); Alkaline Phosphatase 72 U/L (39-117); Anion Gap 11 (12-20); Aspartate Amino Transferase 18 U/L (5-31); Bilirubin Total 0.3 mg/dL (0.0-1.0); Blood Urea Nitrogen 10 mg/dL (9-16); Calcium 9.1 mg/dL (8.4-10.2); Carbon Dioxide 23 mmol/L (22-29); Chloride 106 mmol/L (96-108); Estimated Glomerular Filt Rate > 60; Glucose Random 135 mg/dL (60-115); Potassium 3.7 mmol/L (3.3-5.1); Sodium 136 mmol/L (135-145); Total Protein 7.3 g/dL (6.5-8.0)
[2024-08-08 04:20] LABS: HIV AB/AG Nonreactive (Nonreactive); HIV Num 1 0.05 S/CO (0.00-0.99); ~HepC Num1 0.08 S/CO (0.00-0.79); ~Hepatitis C Antibody Nonreactive (Nonreactive)
== END 2024-08-07 12:18 | disposition home or self-care (01) ==
LOC: HO.HHCL 12:17
DX: Z00.00 Encounter for general adult medical examination without abnormal findings (principal)
CPT/HCPCS: 36415; 80053; 85025; 86803; 87389

== ENCOUNTER 2024-10-16 18:44 | Emergency (ER) | payer MEDICAID, SELFPAY ==
--- NOTE | ~2024-10-16 | XR_ITS ---
CLINICAL HISTORY: sob 1 view chest x-ray Comparison: CR/SR - XR CHEST 1V - 03/10/22 09:39 EDT Findings: No consolidation or effusion. Normal size heart. No acute fracture. IMPRESSION: 1. No acute findings. This document has been electronically signed by: Lucita Nguyen MD on 10/17/2024 01:20:01
[2024-10-16 18:58] VITALS: BP 123/91; PULSE 90; RESP 17; TEMP 36.8; O2SAT 98; BMI 23.6
--- NOTE | 2024-10-16 18:58 | ED.GENADULT ---
HPI - General Adult General Chief complaint: Upper Respiratory Symptoms Stated complaint: Asthma, Flu Symptoms Time Seen by Provider: 10/16/24 22:57 Related Data Previous Rx's ?Medication ?Instructions ?Recorded benzonatate 200 mg capsule 200 mg PO TID PRN cough #20 caps 04/10/21 fluticasone propionate 50 2 spray intranasal DAILY #16 grams 04/10/21 mcg/actuation nasal spray,suspension (Flonase Allergy Relief) pantoprazole 40 mg tablet,delayed 40 mg PO DAILY #14 tabs 08/28/21 release (Protonix) ondansetron 4 mg disintegrating 4 mg PO Q8H PRN N/V #14 tabs 10/13/21 tablet pantoprazole 40 mg tablet,delayed 40 mg PO DAILY GERD #30 tabs 10/13/21 release (Protonix) prednisone 20 mg tablet 40 mg (2 x 20 mg) PO DAILY #8 tabs 03/10/22 lwbhcbczdq-eyawssyqqroie-fmrvzaps 1 tab PO Q6H PRN haeadace #20 tabs 11/14/23 50 mg-325 mg-40 mg tablet albuterol sulfate 90 mcg/actuation 2 puff inhalation Q6H PRN 10/17/24 aerosol inhaler (Ventolin HFA) shortness of breath or wheezing #8.5 grams prednisone 20 mg tablet 40 mg (2 x 20 mg) PO DAILY #10 tabs 10/17/24 Allergies Allergy/AdvReac Type Severity Reaction Status Date / Time No Known Allergies Allergy Verified 10/16/24 19:00 [facility] Past Medical History Medical History No known health problems Social History Social History Alcohol intake: current Alcohol intake frequency: holidays/special occasions only Alcohol type: beer Patient Tobacco Use Status: Never used Tobacco Advance Directives: No Advance Directives Information Provided: No Do you have a plan to hurt others: No Plan Physical Exam ED Vital Signs: Vital Signs - 24 hr 10/16/24 18:58 10/16/24 22:15 10/16/24 22:15 Temperature 98.2 F 98.4 F Pulse Rate 90 96 Respiratory Rate 17 24 H Blood Pressure 123/91 H 134/90 H Pulse Oximetry 98 98 98 Oxygen Delivery Method Room Air Room Air Room Air 10/16/24 23:53 10/17/24 00:00 Temperature Pulse Rate 106 H 101 H Respiratory Rate 18 20 Blood Pressure 153/87 H Pulse Oximetry 98 Oxygen Delivery Method Room Air BMI result Body Mass Index 23.6 Course Course Course Narrative: RME, this is a rapid medical exam performed by Jan Rdz please refer to primary provider for complete H&P- 34 year old female presents for evaluation of cough, congestion. She is well appearing, lungs are clear to auscultation, plan for viral swabs. Medications Administered Discontinued Medications Generic Name Dose Route Start Last Admin Trade Name Freq PRN Reason Stop Dose Admin Albuterol Sulfate 2.5 mg 10/16/24 23:38 10/16/24 23:52 Albuterol Sulfate (0.083%) 2.5 Mg/3 Ml Vial.Neb INHALE 10/16/24 23:39 2.5 mg ONCE ONE Administration Albuterol/Ipratropium 3 ml 10/16/24 23:38 10/16/24 23:52 Albuterol/Iprat 2.5/0.5mg 3 Ml Ampul.Neb INHALE 10/16/24 23:39 3 ml ONCE ONE Administration Methylprednisolone Sodium Succinate 125 mg 10/16/24 23:38 10/17/24 00:01 Methylprednisolone Sod Succ 125 Mg Vial IVPUSH 10/16/24 23:39 125 mg ONCE ONE Administration Medical Decision Making Lab Data Labs: Lab Results 10/16/24 Range/Units 20:52 Influenza Type A (PCR) NEGATIVE (Negative) Influenza Type B (PCR) NEGATIVE (Negative) RSV RNA Qual (PCR) NEGATIVE (Negative) SARS-CoV-2 RNA (RT-PCR) NEGATIVE (Negative) S. pyogenes GrpA KANIKA Negative (Negative) Discharge Plan Discharge Clinical Impression: Viral infection, Asthma Patient Disposition: Home, Self-Care Instructions: Asthma (DC), Viral Syndrome (ED) Prescriptions: New albuterol sulfate [Ventolin HFA] 90 mcg/actuation HFA aerosol inhaler 2 puff inhalation Q6H PRN (Reason: shortness of breath or wheezing) Qty: 8.5 0RF prednisone 20 mg tablet 40 mg PO DAILY Qty: 10 0RF No Action benzonatate 200 mg capsule 200 mg PO TID PRN (Reason: cough) Qty: 20 0RF fluticasone propionate [Flonase Allergy Relief] 50 mcg/actuation spray,suspension 2 spray intranasal DAILY Qty: 16 0RF Rx Instructions: administer into each nostril pantoprazole [Protonix] 40 mg tablet,delayed release (DR/EC) 40 mg PO DAILY Qty: 14 0RF pantoprazole [Protonix] 40 mg tablet,delayed release (DR/EC) 40 mg PO DAILY Qty: 30 0RF ondansetron 4 mg tablet,disintegrating 4 mg PO Q8H PRN (Reason: N/V) Qty: 14 0RF prednisone 20 mg tablet 40 mg PO DAILY Qty: 8 0RF mpfqsjaztp-eofadjnkteybv-rkhl 50-325-40 mg tablet 1 tab PO Q6H PRN (Reason: haeadace) Qty: 20 0RF Referrals: Physician,Unknown J [Primary Care Provider] - 10/20/24 Print Language: Sinhala
[2024-10-16 21:40] LABS: Influenza A PCR NEGATIVE (Negative); Influenza B PCR NEGATIVE (Negative); Resp Syncy Virus RNA Qual PCR NEGATIVE (Negative); SARS COV2 PCR INHOUSE NEGATIVE (Negative)
[2024-10-16 21:44] LABS: IDNOW Serial# 6674DD1D; Strep A Nucleic Acid Negative (Negative)
[2024-10-16 22:15] VITALS: BP 134/90; PULSE 96; RESP 24; TEMP 36.9; O2SAT 98
--- NOTE | 2024-10-16 22:23 | PC.NURSE ---
Patient presents from home with c/o cough, sob and asthma like symptoms. Alert and oriented. Voice hoarse and some audible wheezing noted. Lungs essentially clear but diminished. Respirations deep and sl labored. Abdomen soft, non-tender with positive bowel sounds. Positive pedal pulses with no edema.
--- NOTE | 2024-10-16 23:40 | ED_ITS ---
HPI - URI/Sore Throat General Chief Complaint: Upper Respiratory Symptoms Stated Complaint: Asthma, Flu Symptoms Time Seen by Provider: 10/16/24 22:57 History of Present Illness HPI Narrative: Patient is a 34-year-old female presents today with having a 1 day history of coughing upper respiratory symptoms generalized malaise. Congestion. Patient attempted to use her rescue inhaler to no avail never had to stay in the hospital in the past. No vomiting no diaphoresis. Positive aches. Patient is from home. No history of congestive heart failure. No history of heart attack. No leg swelling. No history of blood clots. No travel history Related Data Previous Rx's ?Medication ?Instructions ?Recorded benzonatate 200 mg capsule 200 mg PO TID PRN cough #20 caps 04/10/21 fluticasone propionate 50 2 spray intranasal DAILY #16 grams 04/10/21 mcg/actuation nasal spray,suspension (Flonase Allergy Relief) pantoprazole 40 mg tablet,delayed 40 mg PO DAILY #14 tabs 08/28/21 release (Protonix) ondansetron 4 mg disintegrating 4 mg PO Q8H PRN N/V #14 tabs 10/13/21 tablet pantoprazole 40 mg tablet,delayed 40 mg PO DAILY GERD #30 tabs 10/13/21 release (Protonix) prednisone 20 mg tablet 40 mg (2 x 20 mg) PO DAILY #8 tabs 03/10/22 gndpjfwiki-adhafdsqkjshj-rjyygwzd 1 tab PO Q6H PRN haeadace #20 tabs 11/14/23 50 mg-325 mg-40 mg tablet albuterol sulfate 90 mcg/actuation 2 puff inhalation Q6H PRN 10/17/24 aerosol inhaler (Ventolin HFA) shortness of breath or wheezing #8.5 grams prednisone 20 mg tablet 40 mg (2 x 20 mg) PO DAILY #10 tabs 10/17/24 Allergies Allergy/AdvReac Type Severity Reaction Status Date / Time No Known Allergies Allergy Verified 10/16/24 19:00 Review of Systems Review of Systems: Positive shortness of breath Yes all other systems are reviewed and are negative PMFSH Past Medical History Medical History No known health problems Social History Social History Alcohol intake: current Alcohol intake frequency: holidays/special occasions only Alcohol type: beer Patient Tobacco Use Status: Never used Tobacco Advance Directives: No Advance Directives Information Provided: No Do you have a plan to hurt others: No Plan Physical Exam Vital Signs: Vital Signs: Last Vital Signs Temp 98.4 F 10/16/24 22:15 Pulse 101 H 10/17/24 00:00 Resp 20 10/17/24 00:00 BP 153/87 H 10/17/24 00:00 Pulse Ox 98 10/17/24 00:00 O2 Del Method Room Air 10/17/24 00:00 BMI result Body Mass Index 23.6 Appearance: Alert. Oriented X3. No acute distress. Eyes: Pupils equal, round and reactive to light. ENT: Pharynx normal. Neck: Normal inspection. Neck supple. No lymph nodes noted. No crepitus CVS: Normal heart rate and rhythm. Pulses normal. Normal S1 and S2 Respiratory: No respiratory distress. Positive mild expiratory wheezes noted Abdomen: Soft and nontender. No rigidity. No distention. good BS x4 Skin: Skin warm and dry. Normal skin color. Normal skin turgor. Extremities: No lower extremity edema. Neurovascular intact to all extremities. No Lacerations. No Rash Neuro: Oriented X 3. No motor deficit. No sensory deficit. Moving all extermities. No slurred speech Medications Administered Discontinued Medications Generic Name Dose Route Start Last Admin Trade Name Freq PRN Reason Stop Dose Admin Albuterol Sulfate 2.5 mg 10/16/24 23:38 10/16/24 23:52 Albuterol Sulfate (0.083%) 2.5 Mg/3 Ml Vial.Neb INHALE 10/16/24 23:39 2.5 mg ONCE ONE Administration Albuterol/Ipratropium 3 ml 10/16/24 23:38 10/16/24 23:52 Albuterol/Iprat 2.5/0.5mg 3 Ml Ampul.Neb INHALE 10/16/24 23:39 3 ml ONCE ONE Administration Methylprednisolone Sodium Succinate 125 mg 10/16/24 23:38 10/17/24 00:01 Methylprednisolone Sod Succ 125 Mg Vial IVPUSH 10/16/24 23:39 125 mg ONCE ONE Administration Medical Decision Making Medical Decision Making MDM Narrative: Steroid given. Chest x-ray ordered. Additional neb treatment given. Will monitor carefully. After neb treatments. . Patient's lungs are clear. My interpretation of patient's chest x-ray was grossly negative. I reviewed radiology's reading which was also the same. Will discharge patient home. Steroid prescribed. Albuterol prescribed Differential Diagnosis Differential Diagnoses: The differential diagnosis associated with the presentation includes Asthma exacerbation flu COVID RSV, pneumonia Admission/Observation Consideration of admission/observation: Escalation of care including admission/observation considered Patient's symptom improved. No distress. URI symptoms no large pneumonia. Will discharge home no need to stay Lab Data [facility] Lab Attestation statement: I reviewed the patient's lab results. Labs: Lab Results 10/16/24 Range/Units 20:52 Influenza Type A (PCR) NEGATIVE (Negative) Influenza Type B (PCR) NEGATIVE (Negative) RSV RNA Qual (PCR) NEGATIVE (Negative) SARS-CoV-2 RNA (RT-PCR) NEGATIVE (Negative) S. pyogenes GrpA KANIKA Negative (Negative) Independent Interpretation I performed an independent interpretation of an: Plain X-Ray (Chest x-ray grossly negative) Radiology Impression Discussion of test interpretation with radiology: I have reviewed the radiologist's reading. Prescription Management Steroid, albuterol given. Discharge Plan Discharge Clinical Impression: Viral infection, Asthma Patient Disposition: Home, Self-Care Instructions: Asthma (DC), Viral Syndrome (ED) Prescriptions: New albuterol sulfate [Ventolin HFA] 90 mcg/actuation HFA aerosol inhaler 2 puff inhalation Q6H PRN (Reason: shortness of breath or wheezing) Qty: 8.5 0RF prednisone 20 mg tablet 40 mg PO DAILY Qty: 10 0RF No Action benzonatate 200 mg capsule 200 mg PO TID PRN (Reason: cough) Qty: 20 0RF fluticasone propionate [Flonase Allergy Relief] 50 mcg/actuation spray,suspension 2 spray intranasal DAILY Qty: 16 0RF Rx Instructions: administer into each nostril pantoprazole [Protonix] 40 mg tablet,delayed release (DR/EC) 40 mg PO DAILY Qty: 14 0RF pantoprazole [Protonix] 40 mg tablet,delayed release (DR/EC) 40 mg PO DAILY Qty: 30 0RF ondansetron 4 mg tablet,disintegrating 4 mg PO Q8H PRN (Reason: N/V) Qty: 14 0RF prednisone 20 mg tablet 40 mg PO DAILY Qty: 8 0RF wirmtjabmd-hoswcwrnjwdvq-nsrn 50-325-40 mg tablet 1 tab PO Q6H PRN (Reason: haeadace) Qty: 20 0RF Referrals: Physician,Unknown J [Primary Care Provider] - 10/20/24 Print Language: Polish
[2024-10-16] MEDS: Albuterol/Iprat 2.5/0.5MG 3 ML AMPUL.NEB INHALE (23:52)
[2024-10-16] MEDS: Albuterol Sulfate (0.083%) 2.5 MG/3 ML VIAL.NEB INHALE (23:52)
[2024-10-16 23:53] VITALS: PULSE 106; RESP 18; O2SAT 99
[2024-10-17] VITALS: BP 153/87; PULSE 101; RESP 20; O2SAT 98
--- NOTE | 2024-10-17 00:02 | PC.NURSE ---
This RN assumed pt care @ 2300. Pt a&ox4, no signs of distress Pt receiving neb tx Pt reports 2/10 substernal pain Pt reports NKDA Pt medicated per mar Plan of care ongoing.
[2024-10-17 01:37] VITALS: BP 110/83; PULSE 101; RESP 20; TEMP 37.1; O2SAT 98
== END 2024-10-17 01:44 | disposition home or self-care (01) ==
PROVIDERS: Physician Assistant; Emergency Provider Emergency Medicine Emergency Medical Services
DX: B34.9 Viral infection, unspecified (principal); J45.909 Unspecified asthma, uncomplicated; R06.02 Shortness of breath; Z03.818 Encounter for observation for suspected exposure to other biological agents ruled out
CPT/HCPCS: 0241U; 71045; 87651; 94640; 96374; 99284; 99285; J2919

== ENCOUNTER → 2024-10-16 23:38 | Outpatient (BNV) | payer MEDICAID, SELFPAY | PROVIDERS: Emergency Provider Emergency Medicine Emergency Medical Services; Visit Provider Radiology Diagnostic Radiology | DX: R06.02 Shortness of breath (principal) | CPT/HCPCS: 71045 ==

== ENCOUNTER 2025-01-28 07:38 | Emergency (ER) | payer MEDICAID, SELFPAY ==
--- NOTE | 2025-01-28 | ECG_ITS ---
Test Reason : chest pain Blood Pressure : */* mmHG Vent. Rate : 85 BPM Atrial Rate : 85 BPM P-R Int : 136 ms QRS Dur : 72 ms QT Int : 370 ms P-R-T Axes : 67 28 36 degrees QTcB Int : 440 ms Normal sinus rhythm Normal ECG When compared with ECG of 10-Mar-2022 09:25, No significant change was found Referred By: Generic ED Physician Electronically Signed By: Randolph Gooden
--- NOTE | ~2025-01-28 | XR_ITS ---
EXAMINATION: XR CHEST CLINICAL INFORMATION: chest pain COMPARISON: 10/16/2024. TECHNIQUE: 2 views of the chest were obtained. FINDINGS: The cardiac, hilar, and mediastinal contours are normal. The lungs are clear bilaterally. There is no pneumothorax or pleural effusion. There is no focal osseous or soft tissue abnormality. XR/XR chest 2V IMPRESSION: No active pulmonary disease. Electronically signed by: Mauricio Pereyra MD 01/28/2025 09:01 AM EDT
[2025-01-28 07:53] VITALS: BP 119/80; PULSE 87; RESP 18; TEMP 36.8; O2SAT 99; BMI 26.2
[2025-01-28 07:58] LABS: MANUAL DIFF FLAG NO
[2025-01-28 07:59] LABS: Hematocrit 38.3 % (37.0-47.0); Hemoglobin 13.1 g/dl (12.0-16.0); Imm Gran Abs Auto 0.07 X10*3/uL (0.00-0.03); Imm Gran Pct Auto 0.9 % (0.0-0.4); Lymphocytes Absolute Auto 2.1 X10*3/uL (1.2-4.9); Mean Corpuscular HGB Conc 34.2 g/dl (31.0-35.0); Mean Corpuscular Hemoglobin 28.3 pg (27.0-33.0); Mean Corpuscular Volume 82.7 fL (80.0-98.0); NRBC Abs Auto 0.000 X10*3/uL (0.0-0.012); NRBC Pct Auto 0.0 /100WBC (0.0-0.2); Platelet Count 307 X10*3/uL (160-400); Red Blood Count 4.63 X10*6/uL (4.20-5.50); White Blood Count 7.8 X10*3/uL (4.8-10.8)
--- NOTE | 2025-01-28 08:07 | ED_ITS ---
HPI - Chest Pain General Chief Complaint: Chest Pain Stated Complaint: chest pain asthma cold headache Time Seen by Provider: 01/28/25 08:06 Source: patient Mode of arrival: ambulatory Limitations: no limitations History of Present Illness ED Provider: Della Kim PA-C HPI narrative: Patient is a 34 year old assigned female at with a history of asthma managed with as needed albuterol and headaches for which she is on medication presenting to the emergency department today with chest pain and a headache. Patient states that the chest pain started 2 days ago and has been constant. She reports the pain is worse with walking outside. She has been using her albuterol over the past 2 days with mild relief. She reports a headache consistent with her chronic headaches. She denies any dizziness, lightheadedness, nausea, vomiting, fever, chills, blurry vision, double vision, loss of vision, palpitations, or any other complaints at this time. She denies any recent illness. MD complaint: chest pain Pertinent past history: asthma Onset (ago): day(s) (2) Onset: during exertion Pain location: substernal Pain radiation: none Related Data Previous Rx's ?Medication ?Instructions ?Recorded benzonatate 200 mg capsule 200 mg PO TID PRN cough #20 caps 04/10/21 fluticasone propionate 50 2 spray intranasal DAILY #16 grams 04/10/21 mcg/actuation nasal spray,suspension (Flonase Allergy Relief) pantoprazole 40 mg tablet,delayed 40 mg PO DAILY #14 t abs 08/28/21 release (Protonix) ondansetron 4 mg disintegrating 4 mg PO Q8H PRN N/V #1 4 tabs 10/13/21 tablet pantoprazole 40 mg tablet,delayed 40 mg PO DAILY GERD #30 tabs 10/13/21 release (Protonix) prednisone 20 mg tablet 40 mg (2 x 20 mg) PO DAILY # 8 tabs 03/10/22 keejcvrbog-qkuwzcqihlweg-lpqyxred 1 tab PO Q6H PRN hae adace #20 tabs 11/14/23 50 mg-325 mg-40 mg tablet albuterol sulfate 90 mcg/actuation 2 puff inhalation Q 6H PRN 10/17/24 aerosol inhaler (Ventolin HFA) shortness of breath or wheezing #8.5 grams prednisone 20 mg tablet 40 mg (2 x 20 mg) PO DAILY # 10 tabs 10/17/24 prednisone 20 mg tablet 40 mg (2 x 20 mg) PO DAILY C OPD 01/28/25 exacerbation 5 days #10 tabs Allergies Allergy/AdvReac Type Severity Reaction Status Date / Time No Known Allergies Allergy Verified 01/28/25 07:54 Review of Systems 2 Constitutional: Constitutional: Reports as per HPI Eyes: Eyes: Reports as per HPI ENT: Reports as per HPI Cardiovascular: Cardiovascular: Reports as per HPI Respiratory: Respiratory: Reports as per HPI Gastrointestinal: Gastrointestinal: Reports as per HPI Genitourinary: Genitourinary: Reports as per HPI Musculoskeletal: Musculoskeletal: Reports as per HPI Integumentary/Breasts: Skin/Breast: Reports as per HPI Neurologic: Reports as per HPI Psychiatric: Psychiatric: Reports as per HPI Endocrine: Endocrine: Reports as per HPI Hematologic/Lymphatic: Hematologic/Lymphatic: Reports as per HPI Allergic/Immunologic: Allergic/Immunologic: Reports as per HPI [facility] Past Medical History Attestation statement: The following information was validated with the patient. Source: old records reviewed and nursing notes reviewed Medical History No known health problems Social History Social History Alcohol intake: current Alcohol intake frequency: holidays/special occasions only Alcohol type: beer Patient Tobacco Use Status: Never used Tobacco Advance Directives: No Advance Directives Information Provided: Yes Patient : No Physical Exam 2 Vital Signs: Vital Signs: Last Vital Signs Temp 98.2 F 01/28/25 09:42 Pulse 87 01/28/25 09:42 Resp 18 01/28/25 09:42 BP 119/80 01/28/25 09:42 Pulse Ox 99 01/28/25 09:42 O2 Del Method Room Air 01/28/25 09:42 BMI result Body Mass Index 26.2 Const: General: cooperative, no acute distress, alert and awake Nutritional Appearance: well nourished Orientation/consciousness: patient oriented x3 HEENT: Head: Yes normal to inspection and Yes atraumatic Ears: hearing grossly normal bilaterally and external ears normal General nose exam: Normal external nose present, no nasal discharge noted and no epistaxis Face and sinus: Yes normal facial exam, No abrasion and No laceration Mouth: Normal oral and palatal mucosa present, no drooling and no muffled voice Eyes: General: appearance normal, both eyes and all related structures P eriorbital: periorbital findings normal Eyelids: Yes eyelids normal C onjunctivae: conjunctivae normal Pupils: Equal, round and reactive pupils present EOM: EOMs intact bilaterally Neck: Neck: Yes normal visual inspection and Yes full ROM Chest: Other: mild expiratory wheeze bilaterally Resp: Effort & Inspection: normal respiratory effort and able to speak in complete sentences Neuro: General: patient oriented x3, moves all extremities and CN's II-XI intact bilaterally Cranial nerves: Yes Equal, round and reactive pupils present Cognition (Neuro): normal cognition Extrem: General: Yes normal to inspection, Yes full ROM and Yes capillary refill normal Psych: Appearance: grossly normal Mental Status: mental status grossly normal Affect: normal affect Attitude: cooperative Thought process: N ormal thought process present Thought content: Normal thought content present Insight: Good insight present (Psych) Medications Administered Discontinued Medications Generic Name Dose Route Start Last Admin Trade Name Humble PRN Reason Stop Dose Admin Methylprednisolone Sodium Succinate 60 mg 01/28/25 08:44 01/28/25 08:55 Methylprednisolone Sod Succ 125 Mg/2 Ml Vial IM 01/28/25 08:45 60 mg ONCE ONE Administration Medical Decision Making Medical Decision Making [facility] Narrative: Patient is a 34 year old assigned female at with a history of asthma managed with as needed albuterol and headaches for which she is on medication presenting to the emergency department today with chest pain and a headache. Patient's physical exam was unremarkable. Patient's blood work was unremarkable. Patient's EKG was unremarkable. Patient's chest x-ray showed no acute process. I explained my physical exam findings as well as all test results to the patient. I answered all questions asked by the patient. Patient's clinical presentation is most consistent with an asthma exacerbation and an acute on chronic headache. Patient given solu-medrol while in the department and prescribed prednisone. I stressed the importance of the patient taking her medication as directed (either prescribed or as the over the counter packaging recommends). I stressed the importance of the patient following up with [his/her/their] primary care provider. I stressed the importance of the patient returning to the emergency department immediately if her symptoms were to worsen or if she were to develop any dizziness, shortness of breath, difficulty breathing, chest pain, blurry vision, loss of vision, nausea, vomiting, abdominal pain, fever, chills, back pain, or any other complaints. Patient verbalized agreement and understanding with this treatment plan and discharge. Differential Diagnosis Differential Diagnoses: The differential diagnosis associated with the presentation includes Headache Asthma exacerbation Asthma Admission/Observation Consideration of admission/observation: Escalation of care including admission/observation considered Patient would have been admitted to the hospital had her work up had any findings where hospital admission was appropriate and her clinical presentation warranted hospital admission. Lab Data [facility] Lab Attestation statement: I reviewed the patient's lab results. My interpretation of these results are in the [facility] Rationale portion of this note. 01/28/25 07:52 01/28/25 07:52 Labs: Lab Results 01/28/25 01/28/25 Range/Units 07:49 07:52 WBC 7.8 (4.8-10.8) X10*3/uL RBC 4.63 (4.20-5.50) X10*6/uL Hgb 13.1 (12.0-16.0) g/dl Hct 38.3 (37.0-47.0) % MCV 82.7 (80.0-98.0) fL MCH 28.3 (27.0-33.0) pg MCHC 34.2 (31.0-35.0) g/dl RDW 13.3 (11.0-16.0) % Plt Count 307 (160-400) X10*3/uL MPV 10.6 (9.4-12.3) fL Immature Gran % (Auto) 0.9 H (0.0-0.4) % Neut % (Auto) 60.4 (45-73) % Lymph % (Auto) 27.1 (20-40) % Eaton % (Auto) 6.4 (2-11) % Eos % (Auto) 4.6 H (0-4) % Baso % (Auto) 0.6 (0-2) % Lymph # (Auto) 2.1 (1.2-4.9) X10*3/uL Eaton # (Auto) 0.5 (0.1-1.2) X10*3/uL Eos # (Auto) 0.4 (0.0-0.4) X10*3/uL Baso # (Auto) 0.1 (0.0-0.2) X10*3/uL Abs Immat Gran (auto) 0.07 H (0.00-0.03) X10*3/uL Absolute Neuts (auto) 4.7 (2.0-8.3) x10*3/uL Absolute Nucleated RBC 0.000 (0.0-0.012) X10*3/uL Nucleated RBC % (auto) 0.0 (0.0-0.2) /100WBC Sodium 139 (135-145) mmol/L Potassium 3.4 (3.3-5.1) mmol/L Chloride 109 H (96-108) mmol/L Carbon Dioxide 21 L (22-29) mmol/L Anion Gap 12 (12-20) BUN 18 H (9-16) mg/dL Creatinine 0.97 (0.5-1.4) mg/dL Estim Creat Clear Calc 62.7 Estimated GFR > 60 Random Glucose 132 H (60-115) mg/dL Calcium 8.8 (8.4-10.2) mg/dL Total Bilirubin 0.4 (0.0-1.0) mg/dL AST 25 (5-31) U/L ALT 25 (0-31) U/L Alkaline Phosphatase 96 (39-117) U/L Troponin I High Sens < 2.7 (<3.5-17.0) ng/L Total Protein 7.6 (6.5-8.0) g/dL Albumin 4.6 (3.5-5.0) g/dL Beta HCG, Quant < 2 mIU/mL COVID-19 (LATOYA) Negative (Negative) COVID-19 Clin Com See Note Influenza Type A (KANIKA) Negative (Negative) Influenza Type B (KANIKA) Negative (Negative) Influenza A & B Note See Note Independent Interpretation I performed an independent interpretation of an: EKG and Plain X-Ray Interpretation: My interpretation is in agreement with the radiologist's impression of this imaging study. L EXAMINATION: XR CHEST CLINICAL INFORMATION: chest pain COMPARISON: 10/16/2024. TECHNIQUE: 2 views of the chest were obtained. FINDINGS: The cardiac, hilar, and mediastinal contours are normal. The lungs are clear bilaterally. There is no pneumothorax or pleural effusion. There is no focal osseous or soft tissue abnormality. XR/XR chest 2V IMPRESSION: No active pulmonary disease. Electronically signed by: Mauricio Pereyra MD 01/28/2025 09:01 AM EDT RP Dictated By: Mauricio Pereyra MD Signed By: Electronically signed by Mauricio Pereyra MD 01/28/25 09 I independently interpreted this EKG and am in agreement with the below findings: Vent. Rate: 85 BPM Atrial Rate: 85 BPM P-R Int: 136 ms QRS Dur: 72 ms QT Int: 370 ms P-R-T Axes: 67 28 36 degrees QTcB Int: 440 ms Normal sinus rhythm Normal ECG When compared with ECG of 10-Mar-2022 09:25, No significant change was found DD/ [id number] Radiology Impression Discussion of test interpretation with radiology: I have reviewed the radiologist's reading. Discharge Plan Discharge Clinical Impression: Atypical chest pain, Headache Patient Disposition: Home, Self-Care Instructions: Chest Pain (DC), Acute Headache (DC) Additional Instructions: Your work up today is reassuring there is no emergent process for your symptoms. I am suspicious your headache is a general headache for which you take medication for already. Your chest pain may be secondary to a mild asthma exacerbation for which you were given a dose of steroids here in the emergency department and prescribed some for home. IF you are prescribed home medications and/or you are taking over the counter medications at home - it is very important you continue to do so as prescribed / directed unless told otherwise. Follow up with your primary care provider. Return to the emergency department immediately if your symptoms worsen or if you develop any numbness, tingling, dizziness, shortness of breath, difficulty breathing, chest pain, blurry vision, loss of vision, nausea, vomiting, abdominal pain, fever, chills, back pain, or any other complaints. Please see the information below about our Patient Portal. If you are not yet enrolled in the [facility] Patient Portal, you will receive an enrollment email invitation following your visit to any [facility] setting. You may also self-enroll in the Patient Portal by visiting our website: [email or web address] The following information is required to access the Patient Portal: - Your [facility] [place] Number - Your personal home email address (must match what is in your electronic medical record, Registration staff can assist with this) - Name - Date of Capabilities of the Patient Portal: - Message some providers - View upcoming appointments - Access your health summary, medical history, and visit history - View current conditions and allergies - View procedure and lab results - View your medications, including guidelines, side effects, and precautions - Complete pre-appointment questionnaires requested by your provider - Ready summary reports of your office visits and procedures To access the Patient Portal Mobile [employer], follow these directions: - Search [facility] in the [employer] Store or [employer] / [employer] Store - Download the [employer] - Search for [facility] - Enter your login/password Prescriptions: New prednisone 20 mg tablet 40 mg PO DAILY 5 Days Qty: 10 0RF No Action benzonatate 200 mg capsule 200 mg PO TID PRN (Reason: cough) Qty: 20 0RF fluticasone propionate [Flonase Allergy Relief] 50 mcg/actuation spray,suspension 2 spray intranasal DAILY Qty: 16 0RF Rx Instructions: administer into each nostril pantoprazole [Protonix] 40 mg tablet,delayed release (DR/EC) 40 mg PO DAILY Qty: 14 0RF pantoprazole [Protonix] 40 mg tablet,delayed release (DR/EC) 40 mg PO DAILY Qty: 30 0RF ondansetron 4 mg tablet,disintegrating 4 mg PO Q8H PRN (Reason: N/V) Qty: 14 0RF prednisone 20 mg tablet 40 mg PO DAILY Qty: 8 0RF hqcnwqxuwb-pssflcidkunvd-vars 50-325-40 mg tablet 1 tab PO Q6H PRN (Reason: haeadace) Qty: 20 0RF albuterol sulfate [Ventolin HFA] 90 mcg/actuation HFA aerosol inhaler 2 puff inhalation Q6H PRN (Reason: shortness of breath or wheezing) Qty: 8.5 0RF prednisone 20 mg tablet 40 mg PO DAILY Qty: 10 0RF Referrals: Jose J Bradford THERAPIST RADIATION [Primary Care Provider, Primary Care] Stand Alone Forms: Work/School Release Interventions: ED Discharge Assessment Last Done: 01/28/25 09:42 Discharge Date/Time: 01/28/25 09:43 Print Language: Frisian
[2025-01-28 08:20] LABS: Alanine Aminotransferase 25 U/L (0-31); Albumin Level 4.6 g/dL (3.5-5.0); Alkaline Phosphatase 96 U/L (39-117); Anion Gap 12 (12-20); Aspartate Amino Transferase 25 U/L (5-31); Blood Urea Nitrogen 18 mg/dL (9-16); Calcium 8.8 mg/dL (8.4-10.2); Carbon Dioxide 21 mmol/L (22-29); Chloride 109 mmol/L (96-108); Creatinine Clr Calc Pharmacy 62.7; Estimated Glomerular Filt Rate > 60; Potassium 3.4 mmol/L (3.3-5.1); Sodium 139 mmol/L (135-145); Total Protein 7.6 g/dL (6.5-8.0)
[2025-01-28 08:22] LABS: Troponin-I High Sensitivity < 2.7 ng/L (<3.5-17.0)
[2025-01-28 08:23] LABS: COVID-19 Test Negative (Negative); IDNOW Serial# 08D9AD1C; IDNOW Serial# 58CA691E; Influenza B2 Negative (Negative)
[2025-01-28 09:42] VITALS: BP 119/80; PULSE 87; RESP 18; TEMP 36.8; O2SAT 99
--- OUTSIDE RECORDS SUMMARY | 2025-01-28 09:43 | XMS_ITS | Encounter Summary ---
Author Organization [employer] Address [address] [facility] [address] [place] [address] Care Team Providers Care Public Welfare Director Name Role Phone SanchezGulshanzuribronwyn JP Primary Care Provider [phone] Encounter Details Date Type Department Care Team (Late st Contact Info) Description 01/28/2025 Orders Only GENERIC EXTERNAL DATA DEPARTMENT Provider, Generic External Data Social History Tobacco Use Types Packs/Day Years Used Date Smoking Tobacco: Never Passive Smoke Exposure: Never Smokeless Tobacco: Never Alcohol Use Standard Drinks/Week Comments Never 0 (1 standard drink = 0.6 oz pur e alcohol) Depression Answer Date Recorded Patient Health Questionnaire-9 Score 7 10/30/2024 Patient Health Questionnaire-9 Score 7 10/30/2024 Last PHQ-9: Questionnaire Data Not on file 0 10/30/2024 Housing Stability Answer Date Recorded What is your housing situation today? I have odalys story 07/24/[address] you li ve. Do you have problems with any of the following? None of the above 07/24/2024 Food Insecurity Answer Date Recorded Within the past 12 months, y ou worried that your food would run out before you got money to buy more: Never True 09/04/2024 Within the past 12 months,th e food you bought just didn't last and you didn't have enough money to get more: Never True 03/2025 Transportation Answer Date Recorded In the past [...] Date Recorded Patient Health Questionnaire-2 Score 2 10/30/2024 Internet Access Answer Date Recorded Internet Access Q1 Yes 07/24/2024 Internet Access Q2 Not on file 07/24/2024 Comments No Sex and Gender Information Value Date Recorded Sex Assigned at Female 11/22/2023 10:58 AM EDT Legal Sex Female 10:49 AM EDT Gender Identity Female 11/22/2023 10:58 AM EDT Sexual Orientation Straight 11/22/2023 10 :58 AM EDT documented as of this encounter Plan of Treatment Not on file documented as of this encounter Procedures Procedure Name Priority Date/Time Associated Diagnosis Comments XR CHEST 2 VIEWS Routine 01/28/2025 8:50 AM EDT HIGH SENSITIVITY TROPONIN I Routine 01/28/2025 7:52 AM EDT CBC WITH AUTO DIFFERENTIAL Routine 01/28/2025 7:52 AM EDT HCG, TOTAL, QN Routine 01/28/2025 7:52 AM EDT COMPREHENSIVE METABOLIC PANEL Routine 01/28/2025 7:52 AM EDT INFLUENZA A B2 ID NOW ([facility]) Routine 01/28/2025 7:49 AM EDT COVID-19 ID NOW ([facility]) Routine 01/28/2025 7:49 AM EDT documented in this encounter Results * XR Chest 2 Views (01/28/2025 8:50 AM EDT) Anatomical Region Laterality Modality Chest Radiographic Loreto ging 01/28/2025 8:50 AM EDT Narrative 01/28/2025 9:04 AM EDT [address] [address] XRay Report Signed Patient: Nannette Sanches MR#: [id number] 66 : 1990 Acct:[id number] Age/Sex: 34 / F ADM Date: 01/28/25 Loc: .ED Attending Dr: Ordering Physician: Della Kim Date of Service: 01/28/25 Procedure(s): XR chest 2V Accession Number(s): [id number] cc: Della Kim; Jose J Bradford STUDENT ADVISOR Reason for Exam: chest pain EXAMINATION: XR CHEST CLINICAL INFORMATION: chest pain COMPARISON: 10/16/2024. TECHNIQUE: 2 views of the chest were obtained. FINDINGS: The cardiac, hilar, and mediastinal contours are normal. The lungs are clear bilaterally. There is no pneumothorax or pleural effusion. There is no focal osseous or soft tissue abnormality. XR/XR chest 2V IMPRESSION: No active pulmonary disease. Electronically signed by: Mauricio Pereyra MD 01/28/2025 09:01 AM EDT RP Dictated By: Mauricio Pereyra MD Signed By: <Electronically signed by Mauricio Pereyra MD in OV> 01/28/25 0901 DD/ 0850 TD/TT: 01/28/25 0855 Historical Guide: Procedure Note Donotuseinterpreter, Image - 01/28/2025 [place] [address] XRay Report Signed Patient: Milan Sanches#: [id number] 66 : 1990Acct:[id number] Age/Sex: 34 / FADM Date: 01/28/25 Loc: .ED Attending Dr: Ordering Physician: Della Kim Date of Service: 01/28/25 Procedure(s): XR chest 2V Accession Number(s): [id number] cc: Della Kim; Jose J Bradford NP Reason for Exam: chest pain EXAMINATION: XR CHEST CLINICAL INFORMATION: chest pain COMPARISON: 10/16/2024. TECHNIQUE: 2 views of the chest were obtained. FINDINGS: The cardiac, hilar, and mediastinal contours are normal. The lungs are clear bilaterally. There is no pneumothorax or pleural effusion. There is no focal osseous or soft tissue abnormality. XR/XR chest 2V IMPRESSION: No active pulmonary disease. Electronically signed by: Mauricio Pereyra MD 01/28/2025 09:01 AM EDT RP Dictated By: Mauricio Pereyra MD Signed By: <Electronically signed by Mauricio Pereyra MD in OV> 01/28/25900 DD/ 0850 TD/TT: 01/28/25 0855 Historical Guide: [facility] External Provider IMG XR PROCEDURES Final Result * High Sensitivity Troponin I (01/28/2025 7:52 AM EDT) Pathologist [facility] TROPONIN I HIGH SENSITIVITY <2.7 <3.5 - 17.0 ng/L [facility] Comment:The Chang high sens itivity Troponin-I results should beused in conjunction with other diagnostic information suchas ECG, clinical observations and information, and patientsymptoms to aid in the diagnosis of [place]. 01/28/2025 7:52 AM EDT 01/28/2025 7:56 AM EDT Generic External Data Provider LAB BLOOD ORDERAB LES Final Result [facility] [address] [place] [phone] * hCG, Total, Quantitative (01/28/2025 7:52 AM EDT) HCG Quantitative <2 mIU/mL [facility] Comment:Weeks post LMP Appro ximate hCG(Last Menstrual Period) Range (mIU/ml)3 - 4 weeks 9 - 1304 - 5 weeks 75 - 2,6005 - 6 weeks 850 - 20,8006 - 7 weeks 4000 - 100,2007 - 12 weeks 11,500 - 289,58475 - 16 weeks 18,300 - 137,76541 - 29 weeks (2nd trimester) 1,400 - 53,83058 - 41 weeks (3rd trimester) 940 - 60,000The Chang B- hCG assay is used for the early detection ofpregnancy; it cannot be used to diagnose any conditionunrelated to . If a B-hCG level is not supportedby the clinical evidence, results should be confirmed by analternative method (qualitative urine hCG, for example). 01/28/2025 7:52 AM EDT 01/28/2025 7:56 AM EDT us Generic External Data Provider LAB BLOOD ORDERAB LES Final Result [facility] [address] [place] [phone] * (ABNORMAL) Comprehensive Metabolic Panel (01/28/2025 7:52 AM EDT) Sodium 139 135 - 145 mmol/L [facility] Potassium 3.4 3.3 - 5.1 mmol/L [facility] Chloride 109(H) 96 - 108 mmol/L [facility] Carbon Dioxide 21(L) 22 - 29 mmol/L [facility] Anion Gap 12 12 - 20 [facility] Urea Nitrogen (BUN) 18(H) 9 - 16 mg/dL [facility] Creatinine, Serum 0.97 0.5 - 1.4 mg/dL [facility] Creatinine Clr Calc Pharmacy 62.7 [facility] Comment:Provided height and weight: 149 cm,58.1 kg.eGFR (calculated from the MDRD study equation) and eCrCl(calculated from the Cockcroft-Gault equation) are based ondifferent parameters and may not yield comparable results.If eCrCl result is absurd, please check patient'sheight/weight. Estimated Glomerular Filt Rate >60 [facility] Comment:Chronic Kidney Disea se: Estimated GFR < 60 mL/min/1.26f0Ekouss Kidney Disease: Estimated GFR < 15 mL/min/1.73m2 Glucose 132(H) 60 - 115 mg/dL [facility] Calcium 8.8 8.4 - 10.2 mg/dL [facility] Bilirubin, Total 0.4 0.0 - 1.0 mg/dL [facility] Aspartate Amino Transferase 25 5 - 31 U/L [facility] Alanine Aminotransferase 25 0 - 31 U/L [facility] Total Protein 7.6 6.5 - 8.0 g/dL [facility] Albumin Level 4.6 3.5 - 5.0 g/dL [facility] Alkaline Phosphatase 96 39 - 117 U/L [facility] 01/28/2025 7:52 AM EDT 01/28/2025 7:56 AM EDT us Generic External Data Provider LAB BLOOD ORDERAB LES Final Result [facility] [address], [place] [phone] * (ABNORMAL) CBC auto differential (01/28/2025 7:52 AM EDT) White Blood Count 7.8 4.8 - 10.8 X10*3/uL [facility] Red Blood Count 4.63 4.20 - 5.50 X10*6/uL [facility] Hemoglobin 13.1 12.0 - 16.0 g/dl [facility] Hematocrit 38.3 37.0 - 47.0 % [facility] Mean Corpuscular Volume 82.7 80.0 - 98.0 fL [facility] Mean Corpuscular Hemoglobin 28.3 27.0 - 33.0 pg [facility] Mean Corpuscular HGB Conc 34.2 31.0 - 35.0 g/dl [facility] Red Cell Distribution Width 13.3 11.0 - 16.0 % [facility] Platelet Count 307 160 - 400 X10*3/uL [facility] Mean Platelet Volume 10.6 9.4 - 12.3 fL [facility] Neutrophils Percent Auto 60.4 45 - 73 % [facility] Imm Gran Pct Auto 0.9(H) 0.0 - 0.4 % [facility] Lymphocytes Percent Auto 27.1 20 - 40 % [facility] Monocytes Percent Auto 6.4 2 - 11 % [facility] Eosinophils Percent Auto 4.6(H) 0 - 4 % [facility] Basophils Percent Auto 0.6 0 - 2 % [facility] NRBC Pct Auto 0.0 0.0 - 0.2 /100WBC [facility] Neutrophils Absolute Auto 4.7 2.0 - 8.3 x10*3/uL [facility] Imm Gran Abs Auto 0.07(H) 0.00 - 0.03 X10*3/uL [facility] Lymphocytes Absolute Auto 2.1 1.2 - 4.9 X10*3/uL [facility] Monocytes Absolute Auto 0.5 0.1 - 1.2 X10*3/uL [facility] Eosinophils Absolute Auto 0.4 0.0 - 0.4 X10*3/uL [facility] Basophils Absolute Auto 0.1 0.0 - 0.2 X10*3/uL [facility] NRBC Abs Auto 0.000 0.0 - 0.012 X10*3/uL [facility] 01/28/2025 7:52 AM EDT 01/28/2025 7:56 AM EDT us Generic External Data Provider LAB BLOOD ORDERAB LES Final Result [facility] [address] [place] [phone] * Influenza A B2 ID NOW ([place]) (01/28/2025 7:49 AM EDT) IDNOW SERIAL# [id number] [facility] Influenza A Negative Negative [facility] Influenza B2 Negative Negative [facility] Influenza A B2 Note See Note [facility] Comment:The Chang ID NOW In fluenza A B2 test is used for thequalitative detection of influenza A and B from patientswith signs and symptoms of respiratory infection.Negative results do not preclude influenza virus infectionand should not be used as the sole basis for diagnosis,treatment or other patient management decisions.There is a risk of false negative results due to thepresence of variants in the viral targets of the assay, lowlevels of virus in the specimen and co- infection withRespiratory Syncytial Virus. 01/28/2025 7:49 AM EDT 01/28/2025 7:56 AM EDT us Generic External Data Provider LAB MICROBIOLOGY - GENERAL ORDERABLES Final Result [facility] [address] [place] [phone] * COVID-19 ID NOW ([facility]) (01/28/2025 7:49 AM EDT) IDNOW SERIAL# [id number] [facility] COVID-19 TEST Negative Negative [facility] COVID-19 NOTE See Note [facility] Comment: Results are for the identification of SARS-CoV2 RNA. TheSARS-CoV2 RNA is generally detectable in respiratory samplesduring the acute phase of infection. Positive results areindicative of the presence of SARS-CoV-2 RNA; clinicalcorrelation with patient history and other diagnosticinformation is necessary to determine patient infectionstatus. Positive results do not rule out bacterial infectionor co- infection with other viruses.Testing facilities within the [facility] and itsterritories are required to report all positive results tothe appropriate public health authorities.Negative results should be treated as presumptive and, ifinconsistent with clinical signs and symptoms or necessaryfor patient management, should be tested with differentauthorized or cleared molecular tests. Negative results donot preclude SARS-CoV2 RNA infection and should not be usedas the sole basis for patient management decisions. Negativeresults should be considered in the context of a patient'srecent exposures, history and the presence of clinical signsand symptoms consistent with COVID-19.This test has been authorized by the FDA under an EmergencyUse Authorization (EUA) for use by authorized laboratories.Testing performed on the Chang ID NOW utilizing NAAT. 01/28/2025 7:49 AM EDT 01/28/2025 7:56 AM EDT us Generic External Data Provider LAB MOLECULAR ALLISON GNOSTICS ORDERABLES Final Result [facility] [address] [place] [phone] documented in this encounter Visit Diagnoses Not on filedocumented in this encounter Additional Health Concerns Assessment Noted Time PHQ-9 Depression Total Score: 7 10/31/19 11:51 AM EDT documented as of this encounter Care Teams Public Welfare Director Relationship Specialty Start Date End Date Jose J Bradford CNP [address] [place] [address] PCP - General Family Medicine 07/31/24 documented as of this encounter
--- OUTSIDE RECORDS SUMMARY | 2025-01-28 09:43 | XMS_ITS | Clinical Summary ---
Author Organization [employer] Address [address] [place] [address] [address] [place] [address] Care Team Providers Care Consumer Marketing Analyst Name Role Phone Sanchez Gulshanzuribronwyn JP Primary Care Provider [phone] Allergies No known active allergies Medications * This document contains information received from the source organization and may not represent a complete record from that organization. Doxylamine-Pyri doxine 10-10 MG tablet delayed-release Indications:[place]en sea and vomiting in Take 2 tablets by mouth at bedtime. 60 tablet 1 08/08/19 25 Active multivitamin () 27-0.8 MG tabletIndicatio ns:12 weeks gestation of Take 1 tablet by mouth Once per day. 90 tablet 1 08/29/19 25 Active doxylamine (Unisom) 25 MG tabletIndicatio ns:12 weeks gestation of Take 1 tablet (25 mg) by mouth if needed at bedtime for sleep. 90 tablet 08/29/19 25 Active pyridoxine (Vitamin B-6) 50 MG tabletIndicatio ns:12 weeks gestation of Take 0.5 tablets (25 mg) by mouth Once per day. 90 tablet 1 08/29/19 25 026 Active topiramate (Topamax) 25 MG tabletIndicatio ns:Chronic migraine w/o aura w/o status migrainosus, not intractable Take 1 tablet (25 mg) by mouth every 12 (twelve) hours. May increase to 2 (50mg) tablets daily after 1 week if tolerated. 60 tablet 11 10/31/19 25 026 Active Melatonin 10 MG capsuleIndicati ons:Anxiety and depression TAKE 1 CAPSULE BY MOUTH EVERYDAY AT BEDTIME 90 capsule 1 01/20/20 Active melatonin 10 MG tabletIndicatio ns:Anxiety and depression Take 1 tablet (10 mg) by mouth at bedtime. 30 tablet 3 10/03/19 25 025 Discontinued Active Problems Problem Noted Date Diagnosed Date History of asthma 10/29/2024 History of premature delivery, currently pregnan t 10/29/2024 History of spontaneous 10/29/2024 Maternal varicella, non-immune 10/29/[address] 10/29/2024 Rubella non-immune status, antepartum 10/29/2024 Adjustment disorder with depressed mood 10/03/19 Assessment & Plan (10/02/2024 2:43 PM EDT): During IBH Consult Nannette presenting with depressed mood, Tearful, crying spells , hopelessness, isolating, changes in sleep difficulty falling asleep and difficulty staying asleep , psychomotor retardation, fatigue/loss of energy and excessive worry/anxiety, difficulty controlling worry, anxiety/worry associated to restlessness and/or feeling keyed-up/On edge , easily fatigued , and sleep disturbance difficulty falling asleep and difficulty staying asleep , and Fear ; for a period of 0-6 mo, for most or all symptoms in the context of pt had a recent miscarriage, stress at home is also a trigger. Pt reported she recently had a miscarriage which is leading to depressive sxs. Nannette is having a difficult time processing this event. Her anxiety is associated with her family situation- her oldest son is 13 y/o and is disabled. Pt also expresses that she has difficult time sleeping almost every night. PCP will start medication to help decrease her sxs. Referral for OP services will be placed. clinician will follow-up during next medical appointment if needed to provide additional support. Depression, unspecified 08/12/2024 Assessment & Plan (08/13/2024 10:03 AM EDT): During IBH Consult Nannette presenting with depressed mood, change in appetite or weight reduce appetite, fatigue/loss of energy, difficulty concentrating, indecisiveness and excessive worry/anxiety, difficulty controlling worry, anxiety/worry associated to easily fatigued , difficulty concentrating and/or mind going blank , and sleep disturbance difficulty falling asleep, and Fear ; for a period of 0-6 mo, for most or all symptoms in the context of housing. Pt reported she is able to cope with current symptoms. Family is identified as main value. Housing situation might be associated with increase of sxs- pt needs to find another apartment cheli, which creates increase of anxiety. Nannette was self-referred to [facility] per patient's request due to location and lack of transportation. clinician offered to follow-up with pt and assess sxs and services in place. Pt agreed with the plan. CHUCK (generalized anxiety disorder) 08/12/2024 Nausea and vomiting in 08/03/2024 Assessment & [...] for vitamin Pt plans to f/u with [facility]. Healthcare maintenance 08/03/2024 Assessment [...] from a therapist Referral to placed today Non-restorable tooth 03/23/2024 Extruded tooth 02/06/2024 Severe dental caries 11/22/2023 Fractured dental buddhism with loss of materi al 11/22/2023 Resolved Problems Problem Noted Date Diagnosed Date Resolved Date Routine eye exam 08/03/2024 11/26/2024 Assessment & Plan (08/03/2024 12:33 PM EDT): Referred to vision center at [facility] Encounters * This document contains information received from the source organization and may not represent a complete record from that organization. Date Type Department Care Team Description 01/28/2025 Orders Only GENERIC EXTERNAL DATA DEPARTMENT Provider, Generic External Data 01/19/2025 Refill [facility] [address] [place] [phone] Jose J Bradford CNP Anxiety and depression 12/23/2024 1:30 PM EDT Office Visit [facility] [address] [place] [address] Ruel, Baylee, OD Myopia, bilateral (Primary Dx) 12/23/2024 Travel 11/26/2024 9:45 AM EDT Office Visit [facility] [address] [place] [address] Tarka, Angeles, OD Myopia, bilateral (Primary Dx) 11/26/2024 Travel 11/04/2024 Telephone [facility] [address] [place] [address] Jose J Bradford CNP Durable Medical Equipment 10/30/2024 11:15 AM EDT Office Visit [facility] [address] [place] [address] Jose J Bradford CNP Chronic migraine w/o aura w/o status migrainosus, not intractable (Primary Dx); Pedal edema; Mild intermittent asthma with acute exacerbation; Anxiety and depression 10/30/2024 Patient Outreach [facility] [address] [place] [phone] Jose J Bradford CNP Care Coordination (C3CM/CHW Rachel Lagos TC- HR Maternity CM IA appt reminder) 10/30/2024 Travel 10/29/2024 Telephone [facility] [address] [place] [address] Camilla Calix MA Chart Prep from Last 3 Months Immunizations Immunization Administration Dates Next Due Pfizer Covid-19 Vaccine 12+ 06/10/2021 Pfizer Covid-19 Vaccine 12+ denita-sucrose (Bojorquez C ap) 07/01/2021 Social History Tobacco [...] Sign Reading Time Taken Comments Blood Pressure 122/88 10/30/2024 11:17 AM EDT Pulse 75 10/30/2024 11:17 AM EDT Temperature 36.3 C (97.4 F) 10/30/2024 11:17 AM EDT Respiratory Rate 16 10/30/2024 11:17 AM EDT Oxygen Saturation 99% 10/30/2024 11:17 AM EDT Inhaled Oxygen Concentration - - Weight 58.2 kg (128 lb 6 oz) 10/30/2024 11:17 AM EDT Height 150.5 cm (4' 11.25 ) 10/30/2024 11:17 AM EDT Body Mass Index 25.71 10/30/2024 11:17 AM EDT Plan of Treatment Health Maintenance Due Date Last Done Comments Dental Oral Exam 1992 Dental Prophylaxis 1992 Dental X-Ray: Bitewings 1992 Family Planning (PISQ) 08/02/2007 HPV Vaccines (1 - 3-dose series) 08/02/2007 DTaP/Tdap/Td Vaccines (1 - Tdap) 08/02/2011 Hepatitis B Vaccines (1 of 3 - 19+ 3-dose series) 08/02/2011 Pneumococcal Vaccine: Pediatrics (0 to 5 Years) and At-Risk Patients (6 to 49) Years (1 of 2 - PCV) 08/02/2011 Pap Smear 2013 Cervical Cancer Screening 2022 HPV/Cotest 2022 COVID-19 Vaccine (3 - 2024-2 6 season) 2025 07/01/2021, 06/10/2021 Influenza Vaccine (#1) 2025 SDOH Screening 09/04/2025 09/04/2024 Alcohol/Substance Use Screening 10/02/2025 10/02/2024 Disability Screening 10/02/2025 10/02/2024 Depression Screening 10/30/2025 10/30/2024, 10/30/2024 Tobacco Screening 11/26/2025 11/26/2024 Dental X-Ray: Full Mouth 02/06/2027 024, 11/22/2023 Zoster Vaccines (1 of 2) 2042 RSV Patients and Patients Aged 60 years or older (1 - 1-dose 75+ series) 08/02/2067 HIV Screening Completed 08/07/2024 Hepatitis C Screening Completed 08/07/2024 HIB Vaccines Aged Out No longer eligi ble based on patient's age to complete this topic Hepatitis A Vaccines Aged Out No long er eligible based on patient's age to complete this topic IPV Vaccines Aged Out No longer eligi ble based on patient's age to complete this topic Meningococcal B Vaccine Aged Out No l onger eligible based on patient's age to complete [...] TROPONIN I Routine 01/28/2025 7:52 AM EDT HCG, TOTAL, QN Routine 01/28/2025 7:52 AM EDT COMPREHENSIVE METABOLIC PANEL Routine 01/28/2025 7:52 AM EDT CBC WITH AUTO DIFFERENTIAL Routine 01/28/2025 7:52 AM EDT COVID-19 ID NOW (CHANG) Routine 01/28/2025 7:49 AM EDT INFLUENZA A B2 ID NOW (CHANG) Routine 01/28/2025 7:49 AM EDT HEPATITIS C AB W/REFL TO HCV RNA, QN, PCR Routine 08/07/2024 12:19 PM EDT Healthcare maintenance HIV 1/2 ANTIGEN/ANTIBODY, FOURTH GENERATION W/RFL Routine 08/07/2024 12:19 PM EDT Healthcare maintenance PANORAMIC RADIOGRAPHIC IMAGE Routine 02/06/2024 1:00 PM EDT from Last 3 Months or Most Recently Relevant to Health Maintenance Results * XR Chest 2 Views (01/28/2025 8:50 AM EDT) Anatomical Region Laterality Modality Chest Radiographic Loreto ging 01/28/2025 8:50 AM EDT Narrative 01/28/2025 9:04 AM EDT [address] [address] XRay Report Signed Patient: Nannette Sanches MR#: [id number] : 1990 Acct:[id number] Age/Sex: 34 / F ADM Date: 01/28/25 Loc: .ED Attending Dr: Ordering Physician: Della Kim Date of Service: 01/28/25 Procedure(s): XR chest 2V Accession Number(s): [id number] cc: Della Kim; Jose J Bradford NP [...] Mauricio Pereyra MD 01/28/2025 09:01 AM EDT Dictated By: Mauricio Pereyra MD Signed By: <Electronically signed by Mauricio Pereyra MD in OV> 01/28/25 09 DD/ 08 TD/TT: 01/28/25 0855 Air Sealing Technician: Procedure Note Donotuseinterpreter, Image - 01/28/[address] [address] XRay Report Signed Patient: Nannette SanchesMR#: [id number] 66 : 1990Acct:[id number] Age/Sex: 34 / FADM Date: 01/28/25 Loc: HO.ED Attending Dr: Ordering Physician: Della Kim Date of Service: 01/28/25 Procedure(s): XR chest 2V Accession Number(s): [id number] cc: Della Kim; Jose J Bradford NP [...] Mauricio Pereyra MD 01/28/2025 09:01 AM EDT Dictated By: Mauricio Pereyra MD Signed By: <Electronically signed by Mauricio Pereyra MD in OV> 01/28/25 0901 DD/ 0850 TD/TT: 01/28/25 0855 Air Sealing Technician: [facility] External Provider IMG XR PROCEDURES Final Result * High Sensitivity Troponin I (01/28/2025 7:52 AM EDT) TROPONIN I HIGH SENSITIVITY <2.7 <3.5 - 17.0 ng/L [facility] Comment:The Chang high sens itivity Troponin-I results should beused in conjunction with other diagnostic information suchas ECG, clinical observations and information, and patientsymptoms to aid in the diagnosis of KS. 01/28/2025 7:52 AM EDT 01/28/2025 7:56 AM EDT Generic External Data Provider LAB BLOOD ORDERAB LES Final Result [facility] [address] [place] [phone] * (ABNORMAL) CBC auto differential (01/28/2025 7:52 AM EDT) White Blood Count 7.8 4.8 - 10.8 X10*3/uL [facility] Red Blood Count 4.63 4.20 - 5.50 X10*6/uL [facility] Hemoglobin 13.1 12.0 - 16.0 g/dl [facility] Hematocrit 38.3 37.0 - 47.0 % [facility] Mean Corpuscular Volume 82.7 80.0 - 98.0 fL [facility] Mean Corpuscular Hemoglobin 28.3 27.0 - 33.0 pg [facility] Mean Corpuscular HGB Conc 34.2 31.0 - 35.0 g/dl [facility] Red Cell Distribution Width 13.3 11.0 - 16.0 % [facility] Platelet Count 307 160 - 400 X10*3/uL [facility] Mean Platelet Volume 10.6 9.4 - 12.3 fL [facility] Neutrophils Percent Auto 60.4 45 - 73 % [facility] Imm Gran Pct Auto 0.9(H) 0.0 - 0.4 % [facility] Lymphocytes Percent Auto 27.1 20 - 40 % [facility] Monocytes Percent Auto 6.4 2 - 11 % [facility] Eosinophils Percent Auto 4.6(H) 0 - 4 % [facility] Basophils Percent Auto 0.6 0 - 2 % [facility] NRBC Pct Auto 0.0 0.0 - 0.2 /100WBC [facility] Neutrophils Absolute Auto 4.7 2.0 - 8.3 x10*3/uL [facility] Imm Gran Abs Auto 0.07(H) 0.00 - 0.03 X10*3/uL [facility] Lymphocytes Absolute Auto 2.1 1.2 - 4.9 X10*3/uL [facility] Monocytes Absolute Auto 0.5 0.1 - 1.2 X10*3/uL [facility] Eosinophils Absolute Auto 0.4 0.0 - 0.4 X10*3/uL [facility] Basophils Absolute Auto 0.1 0.0 - 0.2 X10*3/uL [facility] NRBC Abs Auto 0.000 0.0 - 0.012 X10*3/uL [facility] 01/28/2025 7:52 AM EDT 01/28/2025 7:56 AM EDT Generic External Data Provider LAB BLOOD ORDERAB LES Final Result Performing Organization Address City/[facility]/ZIP Co de Phone Number [facility] [address] [place] [address] [phone] * hCG, Total, Quantitative (01/28/2025 7:52 AM EDT) Pathologist [facility] HCG Quantitative <2 mIU/mL [facility] Comment:Weeks post LMP Appro ximate hCG(Last Menstrual Period) Range (mIU/ml)3 - 4 weeks 9 - 1304 - 5 weeks 75 - 2,6005 - 6 weeks 850 - 20,8006 - 7 weeks 4000 - 100,2007 - 12 weeks 11,500 - 289,85753 - 16 weeks 18,300 - 137,93817 - 29 weeks (2nd trimester) 1,400 - 53,65116 - 41 weeks (3rd trimester) 940 - [...] Provider LAB BLOOD ORDERAB LES Final Result Performing Organization Address [facility]/ZIP Co de Phone Number [facility] [address] [place] [phone] * (ABNORMAL) Comprehensive Metabolic Panel (01/28/2025 7:52 AM EDT) Sodium 139 135 - 145 mmol/L [facility] Potassium 3.4 3.3 - 5.1 mmol/L [facility] Chloride 109(H) 96 - 108 mmol/L [facility] Carbon Dioxide 21(L) 22 - 29 mmol/L [facility] Anion Gap 12 12 - 20 [facility] Urea Nitrogen (BUN) 18(H) 9 - 16 mg/dL [facility] Creatinine, Serum 0.97 0.5 - 1.4 mg/dL [facility] Creatinine Clr Calc Pharmacy 62.7 [facility] Comment:Provided height and weight: 149 cm,58.1 kg.eGFR (calculated from the MDRD study equation) and eCrCl(calculated from the Cockcroft-Gault equation) are based ondifferent parameters and may not yield comparable results.If eCrCl result is absurd, please check patient'sheight/weight. Estimated Glomerular Filt Rate >60 [facility] Comment:Chronic Kidney Disea se: Estimated GFR < 60 mL/min/1.53o1Cghwun Kidney Disease: Estimated GFR < 15 mL/min/1.73m2 Glucose 132(H) 60 - 115 mg/dL [facility] Calcium 8.8 8.4 - 10.2 mg/dL [facility] Bilirubin, Total 0.4 0.0 - 1.0 mg/dL [facility] Aspartate Amino Transferase 25 5 - 31 U/L [facility] Alanine Aminotransferase 25 0 - 31 U/L [facility] Total Protein 7.6 6.5 - 8.0 g/dL [facility] Albumin Level 4.6 3.5 - 5.0 g/dL [facility] Alkaline Phosphatase 96 39 - 117 U/L [facility] 01/28/2025 7:52 AM EDT 01/28/2025 7:56 AM EDT us Generic External Data Provider LAB BLOOD ORDERAB LES Final Result [facility] [address] [place] [address] [phone] * Influenza A B2 ID NOW (Chang) (01/28/2025 7:49 AM EDT) IDNOW SERIAL# [id number] [facility] Influenza A Negative Negative [facility] Influenza B2 Negative Negative [facility] Influenza A B2 Note See Note [facility] Comment:The Chang ID NOW In [...] LAB MICROBIOLOGY - GENERAL ORDERABLES Final Result [facility] [address] [place] [phone] * COVID-19 ID NOW (CHANG) (01/28/2025 7:49 AM EDT) IDNOW SERIAL# [id number] [facility] COVID-19 TEST Negative Negative [facility] COVID-19 NOTE See Note [facility] Comment: Results are for the identification of SARS-CoV2 RNA. TheSARS-CoV2 RNA is generally detectable in respiratory samplesduring the acute phase of infection. Positive results areindicative of the presence of SARS-CoV-2 RNA; clinicalcorrelation with patient history and other diagnosticinformation is necessary to determine patient infectionstatus. Positive results do not rule out bacterial infectionor co- infection with other viruses.Testing facilities within the [facility] and itsterritories are required to report all [...] use by authorized laboratories.Testing performed on the [employer] ID NOW utilizing NAAT. 01/28/2025 7:49 AM EDT 01/28/2025 7:56 AM EDT [facility] [place] Data Provider LAB MOLECULAR ALLISON GNOSTICS ORDERABLES Final Result Performing Organization Address [facility] Co de Phone Number [facility] [address] [place] [address] [phone] * Hepatitis C Antibody with Reflex to HCV, RNA, Quantitative, Real-Time PCR (08/07/2024 12:19 PM EDT) Hepatitis C Antibody Nonreactive Nonreactive [facility] Comment:Antibodies to HCV no t detected; does not exclude early acuteHCV infection. Blood Venous blood specimen / Unknown 08/07/2024 12:19 PM EDT 08/07/2024 1:32 PM EDT [facility] LAB BLOOD ORDERABLES Nevaeh l Result Performing Organization Address [facility]/ZIP Co de Phone Number [facility] [address] [place] [address] [phone] * HIV-1/2 Antigen and Antibodies, Fourth Generation, with Reflexes (08/07/2024 12:19 PM EDT) HIV AB/AG Nonreactive Nonreactive [facility] Comment:HIV-1 p24 Ag and/or HIV-1/HIV-2 Ab not detected.A test result that is nonreactive does not exclude thepossibility of exposure to or infection with HIV-1 and/orHIV-2. Nonreactive results in this assay for individualswith prior exposure to HIV-1 and/or HIV-2 may be due toantigen and antibody levels that are below the limit ofdetection of this assay.The [employer] HIV Ag/Ab Combo assay result andsupplemental assay results should be interpreted inconjunction with the patient's clinical presentation,history and other laboratory results. If the results areinconsistent with clinical evidence, additional testing issuggested to confirm the result. Blood Venous blood specimen / Unknown 08/07/2024 12:19 PM EDT 08/07/2024 1:32 PM EDT Jose J [facility] LAB BLOOD ORDERABLES Nevaeh quick Result [facility] [address] [place] [phone] from Last 3 Months or Most Recently Relevant to Health Maintenance Insurance [facility] C3 DENTAL-[facility] MEDICAID LIMITED ADULT DENTAL - HSN FULL (MEDICAID) Care Teams Consumer Marketing Analyst Relationship Specialty Start Date End Date Jose J Bradford CNP [address] [place] [phone] PCP - General Family Medicine 07/31/24
== END 2025-01-28 09:43 | disposition home or self-care (01) ==
PROVIDERS: Emergency Provider Emergency Medicine
DX: R07.89 Other chest pain (principal); R51.9 Headache, unspecified; Z03.818 Encounter for observation for suspected exposure to other biological agents ruled out
CPT/HCPCS: 36415; 71046; 80053; 84484; 84702; 85025; 87502; 87635; 93005; 96372; 99284; J2919

== ENCOUNTER → 2025-01-28 07:42 | Outpatient (BNV) | payer MEDICAID, SELFPAY | PROVIDERS: Emergency Provider Emergency Medicine; Visit Provider Internal Medicine Cardiovascular Disease | DX: R07.9 Chest pain, unspecified (principal) | CPT/HCPCS: 93010 ==

== ENCOUNTER → 2025-01-28 08:44 | Outpatient (BNV) | payer MEDICAID, SELFPAY | PROVIDERS: Emergency Provider Emergency Medicine; Visit Provider Radiology Diagnostic Radiology | DX: R07.9 Chest pain, unspecified (principal) | CPT/HCPCS: 71046 ==

== ENCOUNTER 2025-03-25 07:45 | Emergency (ER) | payer MEDICAID, SELFPAY ==
--- NOTE | ~2025-03-25 | XR_ITS ---
EXAMINATION: XR CHEST 2 VIEWS HISTORY: cough COMPARISON: Comparison is made with the prior examination dated 01/28/2025. FINDINGS: PA and lateral views of the chest are submitted. The lungs are expanded and clear. There is no pleural effusion, pneumothorax, or pulmonary vascular congestion. The heart is normal in size. The bones are intact. XR/XR chest 2V IMPRESSION: No acute cardiopulmonary abnormality. Electronically signed by: Kvng Alvarado MD 03/25/2025 08:19 AM EDT
--- NOTE | 2025-03-25 07:59 | ECG_ITS ---
Test Reason : CP Blood Pressure : */* mmHG Vent. Rate : 98 BPM Atrial Rate : 98 BPM P-R Int : 116 ms QRS Dur : 68 ms QT Int : 356 ms P-R-T Axes : 64 18 24 degrees QTcB Int : 454 ms Normal sinus rhythm Normal ECG When compared with ECG of 28-Jan-2025 07:42, No significant change was found Referred By: Della Kim Electronically Signed By: ISRAEL GONZALEZ
[2025-03-25 08:00] VITALS: BP 130/66; PULSE 95; RESP 16; TEMP 37.1; O2SAT 97; BMI 29.6
[2025-03-25 08:49] LABS: COVID-19 Test Negative (Negative); IDNOW Serial# 55D5AD1C; IDNOW Serial# 58CA691E; Influenza B2 Negative (Negative)
--- OUTSIDE RECORDS SUMMARY | 2025-03-25 09:04 | XMS_ITS | Encounter Summary ---
Author Organization [employer] Address [address] [facility] [address] [place] [address] Care Team Providers Care Seasonal Greenery Bundler Name Role Phone Jose J Bradford CNP Primary Care Provider [phone] Encounter Details Date Type Department Care Team ([facility] st Contact Info) Description 03/25/2025 Orders Only [facility] External Provider, [facility] Social History Tobacco Use Types Packs/Day Years [...] the past 12 months, has t he [employer], gas, oil or water company threatened to [...] Procedure Name Priority Date/Time Associated Diagnosis Comments INFLUENZA A B2 ID NOW ([employer]) Routine 03/25/2025 8:21 AM EDT COVID-19 ID NOW ([employer]) Routine 03/25/2025 8:21 AM EDT XR CHEST 2 VIEWS Routine 03/25/2025 8:05 AM EDT documented in this encounter Results * COVID-19 ID NOW (CHANG) (03/25/2025 8:21 AM EDT) IDNOW SERIAL# [id number] [facility] COVID-19 TEST Negative Negative [facility] COVID-19 NOTE See Note [facility] Comment: Results are for the identification of SARS-CoV2 RNA. TheSARS-CoV2 RNA is generally detectable in respiratory samplesduring the acute phase of infection. Positive results areindicative of the presence of SARS-CoV-2 RNA; clinicalcorrelation with patient history and other diagnosticinformation is necessary to determine patient infectionstatus. Positive results do not rule out bacterial infectionor co- infection with other viruses.Testing facilities within the [facility] and [facility] are required to report all positive results [...] on the Chang ID NOW utilizing NAAT. 03/25/2025 8:21 AM EDT 03/25/2025 8:25 AM EDT Generic External Data Provider LAB MOLECULAR ALLISON GNOSTICS ORDERABLES Final Result Performing Organization Address [facility]/ZIP Co de Phone Number [facility] [address] [place] [phone] * Influenza A B2 ID NOW (Chang) (03/25/2025 8:21 AM EDT) IDNOW SERIAL# [id number] [facility] Influenza A Negative Negative [facility] Influenza B2 Negative Negative [facility] Influenza A B2 Note See Note [facility] Comment:The Chang ID NOW In [...] specimen and co- infection withRespiratory Syncytial Virus. 03/25/2025 8:21 AM EDT 03/25/2025 8:25 AM EDT us Generic External Data Provider LAB MICROBIOLOGY - GENERAL ORDERABLES Final Result Performing Organization Address [facility]/ZIP Co de Phone Number [facility] [address] [place] [phone] * XR Chest 2 Views (03/25/2025 8:05 AM EDT) Anatomical Region Laterality Modality Chest Radiographic Loreto ging 03/25/2025 8:05 AM EDT Narrative 03/25/2025 8:22 AM EDT [address] [address] XRay Report Signed Patient: Nannette Sanches MR#: [id number] 66 : 1990 Acct:[id number] Age/Sex: 34 / F ADM Date: 03/25/25 Loc: HO.ED Attending Dr: Ordering Physician: Della Kim Date of Service: 03/25/25 Procedure(s): XR chest 2V Accession Number(s): [id number] cc: Della Kim; Jose J Bradford NP Reason for Exam: cough EXAMINATION: XR CHEST 2 VIEWS HISTORY: cough COMPARISON: Comparison is made with the prior examination dated 01/28/2025. FINDINGS: PA and lateral views of the chest are submitted. The lungs are expanded and clear. There is no pleural effusion, pneumothorax, or pulmonary vascular congestion. The heart is normal in size. The bones are intact. XR/XR chest 2V IMPRESSION: No acute cardiopulmonary abnormality. Electronically signed by: Kvng Alvarado MD 03/25/2025 08:19 AM EDT Dictated By: Kvng Alvarado MD Signed By: <Electronically signed by Kvng Alvarado MD in OV> 03/25/25 0819 DD/ 0805 TD/TT: 03/25/25 0813 Farmworker: Procedure Note Donotuseinterpreter, Image - 03/25/[address] [address] XRay Report Signed Patient: Nannette SanchesMR#: [id number] 66 : 1990Acct:[id number] Age/Sex: 34 / FADM Date: 03/25/25 Loc: .ED Attending Dr: Ordering Physician: Della Kim Date of Service: 03/25/25 Procedure(s): XR chest 2V Accession Number(s): [id number] cc: Della Kim; Jose J Bradford NP Reason for Exam: cough EXAMINATION: XR CHEST 2 VIEWS HISTORY: cough COMPARISON: Comparison is made with the prior examination dated 01/28/2025. FINDINGS: PA and lateral views of the chest are submitted. The lungs are expanded and clear. There is no pleural effusion, pneumothorax, or pulmonary vascular congestion. The heart is normal in size. The bones are intact. XR/XR chest 2V IMPRESSION: No acute cardiopulmonary abnormality. Electronically signed by: Kvng Alvarado MD 03/25/2025 08:19 AM EDT RP Dictated By: Kvng Alvarado MD Signed By: <Electronically signed by Kvng Alvarado MD in OV> 03/25/25 0819 DD/ 0805 TD/TT: 03/25/25 0813 Farmworker: [facility] External Provider IMG XR PROCEDURES Edited Result - Final documented in this encounter Visit Diagnoses Not on filedocumented in this encounter Additional Health Concerns Assessment Noted Time PHQ-9 Depression Total Score: 7 10/31/19 25 11:51 AM EDT documented as of this encounter Care Teams Seasonal Greenery Bundler Relationship Specialty Start Date End Date Jose J Bradford CNP PCP - General Family Medicine 07/31/24 documented as of this encounter
--- OUTSIDE RECORDS SUMMARY | 2025-03-25 09:05 | XMS_ITS | Clinical Summary ---
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 Doxylamine-Pyrid oxine 10-10 MG tablet delayed-releaseI ndications:Nause a and vomiting in Take 2 tablets by mouth at bedtime. 60 tablet 1 5 Active multivitamin () 27-0.8 MG tabletIndication s:12 weeks gestation of Take 1 tablet by mouth Once per day. 90 tablet 1 5 Active doxylamine (Unisom) 25 MG tabletIndication s:12 weeks gestation of Take 1 tablet (25 mg) by mouth if needed at bedtime for sleep. 90 tablet 5 Active pyridoxine (Vitamin B-6) 50 MG tabletIndication s:12 weeks gestation of Take 0.5 tablets (25 mg) by mouth Once per day. 90 tablet 1 5 08/29/19 26 Active topiramate (Topamax) 25 MG tabletIndication s:Chronic migraine w/o aura w/o status migrainosus, not intractable Take 1 tablet (25 mg) by mouth every 12 (twelve) hours. May increase to 2 (50mg) tablets daily after 1 week if tolerated. 60 tablet 11 5 10/31/19 26 Active Melatonin 10 MG capsuleIndicatio ns:Anxiety and depression TAKE 1 CAPSULE BY MOUTH EVERYDAY AT BEDTIME 90 capsule 1 5 Active Active Problems Problem Noted Date Diagnosed Date History of asthma 10/29/2024 History of premature delivery, currently pregnan t 10/29/2024 History of spontaneous 10/29/2024 Maternal varicella, non-immune 10/29/[address] 10/29/2024 Rubella non-immune status, antepartum 10/29/2024 Adjustment disorder with depressed mood 10/03/19 25 Assessment & Plan (10/02/2024 2:43 PM EDT): [...] increase of anxiety. Nannette was self-referred to [facility] per patient's request due to location and [...] 02/06/2024 Severe dental caries 11/22/2023 Fractured dental taoist with loss of materi al 11/22/2023 Resolved Problems Problem Noted Date Diagnosed Date Resolved Date Routine eye exam 08/03/2024 11/26/2024 Assessment & Plan (08/03/2024 12:33 PM EDT): Referred to vision center at [facility] Encounters Date Type Department Care Team Description 03/25/2025 Orders Only [facility] External Provider, [facility] 01/28/2025 Orders Only GENERIC EXTERNAL DATA DEPARTMENT Provider, Generic External Data 01/19/2025 Refill [facility] [address] [place] [address] Jose J Bradford CNP Anxiety and depression 12/23/2024 1:30 PM EDT Office Visit [facility] OPTOMETRY [address] [place] [address] Ruel, Baylee, OD Myopia, bilateral (Primary Dx) 12/23/2024 Travel from Last 3 Months Immunizations Immunization Administration [...] Years (1 of 2 - PCV) 08/02/2011 COVID-19 Vaccine ( - 2024-2 6 season) 2025 07/01/2021, 06/10/2021 SDOH Screening 09/04/2025 09/04/2024 Alcohol/Substance Use Screening 10/02/2025 10/02/2024 Disability Screening 10/02/2025 10/02/2024 Depression Screening 10/30/2025 10/30/2024, 10/30/2024 Tobacco Screening 11/26/2025 11/26/2024 Dental X-Ray: Full Mouth 02/06/2027 024, 11/22/2023 Cervical Cancer Screening 08/07/2029 HPV/Cotest 08/07/2029 08/07/2024 Pap Smear 08/07/2029 08/07/2024 Zoster Vaccines (1 of 2) 2042 RSV Patients and Patients Aged 60 years or older (1 - 1-dose 75+ series) 08/02/2067 HIV Screening Completed 08/07/2024 Hepatitis C Screening Completed 08/07/2024 Influenza Vaccine Completed 01/28/2025 HIB Vaccines Aged Out No longer eligi [...] Procedure Name Priority Date/Time Associated Diagnosis Comments COVID-19 ID NOW (CHANG) Routine 03/25/2025 8:21 AM EDT INFLUENZA A B2 ID NOW (CHANG) Routine 03/25/2025 8:21 AM EDT XR CHEST 2 VIEWS Routine 03/25/2025 8:05 AM EDT XR CHEST 2 VIEWS Routine 01/28/2025 8:50 AM EDT HIGH SENSITIVITY TROPONIN I Routine 01/28/2025 7:52 AM EDT HCG, TOTAL, QN Routine 01/28/2025 7:52 AM EDT COMPREHENSIVE METABOLIC PANEL Routine 01/28/2025 7:52 AM EDT CBC WITH AUTO DIFFERENTIAL Routine 01/28/2025 7:52 AM EDT COVID-19 ID NOW ([employer]) Routine 01/28/2025 7:49 AM EDT INFLUENZA A B2 ID NOW ([employer]) Routine 01/28/2025 7:49 AM EDT HEPATITIS C AB W/REFL TO HCV RNA, QN, PCR Routine 08/07/2024 12:19 PM EDT Healthcare maintenance HIV 1/2 ANTIGEN/ANTIBODY, FOURTH GENERATION W/RFL Routine 08/07/2024 12:19 PM EDT Healthcare maintenance HM PAP/HPV Routine 08/07/2024 PANORAMIC RADIOGRAPHIC IMAGE Routine 02/06/2024 1:00 PM EDT from Last 3 Months or Most Recently Relevant to Health Maintenance Results * Influenza A B2 ID NOW ([employer]) (03/25/2025 8:21 AM EDT) Only the most recent of2 resultswithin the time period is included. IDNOW SERIAL# [id number] [facility] Influenza A Negative Negative [facility] Influenza B2 Negative Negative [facility] Influenza A B2 Note See Note [facility] Comment:The Chang ID NOW In [...] LAB MICROBIOLOGY - GENERAL ORDERABLES Final Result [facility] [address] [place] [phone] * COVID-19 ID NOW (CHANG) (03/25/2025 8:21 AM EDT) Only the most recent of2 resultswithin the time period is included. IDNOW SERIAL# [id number] [facility] COVID-19 TEST Negative Negative [facility] COVID-19 NOTE See Note [facility] Comment: Results are for the identification of SARS-CoV2 RNA. TheSARS-CoV2 RNA is generally detectable in respiratory samplesduring the acute phase of infection. Positive results areindicative of the presence of SARS-CoV-2 RNA; clinicalcorrelation with patient history and other diagnosticinformation is necessary to determine patient infectionstatus. Positive results do not rule out bacterial infectionor co- infection with other viruses.Testing facilities within the [facility] are required to report all [...] use by authorized laboratories.Testing performed on the [employer]Along ID NOW utilizing NAAT. 03/25/2025 8:21 AM EDT 03/25/2025 8:25 AM EDT us Generic External Data Provider LAB MOLECULAR ALLISON GNOSTICS ORDERABLES Final Result Performing Organization Address City/State/[facility] Co de Phone Number [facility] [address] [place] [phone] * XR Chest 2 Views (03/25/2025 8:05 AM EDT) Only the most recent of2 resultswithin the time period is included. Anatomical Region Laterality Modality Chest Radiographic Loreto ging 03/25/2025 8:05 AM EDT Narrative 03/25/2025 8:22 AM EDT [address] [address] XRay Report Signed Patient: Nannette Sanches MR#: [id number] 66 : 1990 Acct:[id number] Age/Sex: 34 / F ADM Date: 03/25/25 Loc: .ED Attending Dr: Ordering Physician: Della Kim Date of Service: 03/25/25 Procedure(s): XR chest 2V Accession Number(s): [id number] cc: Della Kim; Jose J Bradford NP [...] in OV> 03/25/25 0819 DD/ 0805 TD/TT: 03/25/25812 Application Support Developer: Procedure Note Donotuseinterpreter, Image - 03/25/[address] [address] XRay Report Signed Patient: Nannette SanchesMR#: [id number] 66 : 1990Acct:[id number] Age/Sex: 34 / FADM Date: 03/25/25 Loc: HO.ED Attending Dr: Ordering Physician: Della Kim Date of Service: 03/25/25 Procedure(s): XR chest 2V Accession Number(s): [id number] cc: Della Kim; Jose J Bradford NP [...] signed by Kvng Alvarado MD in OV> 03/25/25818 DD/ 4 TD/TT: 03/25/25812 Application Support Developer: [facility] External Provider IMG XR PROCEDURES Edited Result - Final * High Sensitivity Troponin I (01/28/2025 7:52 AM EDT) TROPONIN I HIGH SENSITIVITY <2.7 <3.5 - 17.0 ng/L [facility] Comment:The Chang high sens itivity Troponin-I results should beused in conjunction with other diagnostic information suchas ECG, clinical observations and information, and patientsymptoms to aid in the diagnosis of KS. 01/28/2025 7:52 AM EDT 01/28/2025 7:56 AM EDT us Generic External Data Provider LAB BLOOD ORDERAB LES Final Result [facility] [address] [place] [phone] * (ABNORMAL) CBC auto differential (01/28/2025 7:52 AM EDT) White Blood Count 7.8 4.8 - 10.8 X10*3/uL [facility] Red Blood Count 4.63 4.20 - 5.50 X10*6/uL [facility] Hemoglobin 13.1 12.0 - 16.0 g/dl [facility] Hematocrit 38.3 37.0 - 47.0 % [facility] Mean Corpuscular Volume 82.7 80.0 - 98.0 fL [facility] Mean Corpuscular Hemoglobin 28.3 27.0 - 33.0 pg [facility] Mean Corpuscular HGB Conc 34.2 31.0 - 35.0 g/dl [facility] Red Cell Distribution Width 13.3 11.0 - 16.0 % [facility] Platelet Count 307 160 - 400 X10*3/uL [facility] Mean Platelet Volume 10.6 9.4 - 12.3 fL [facility] Neutrophils Percent Auto 60.4 45 - 73 % [facility] Imm Gran Pct Auto 0.9(H) 0.0 - 0.4 % [facility] Lymphocytes Percent Auto 27.1 20 - 40 % [facility] Monocytes Percent Auto 6.4 2 - 11 % [facility] Eosinophils Percent Auto 4.6(H) 0 - 4 % [facility] Basophils Percent Auto 0.6 0 - 2 % [facility] NRBC Pct Auto 0.0 0.0 - 0.2 /100WBC [facility] Neutrophils Absolute Auto 4.7 2.0 - 8.3 x10*3/uL [facility] Imm Gran Abs Auto 0.07(H) 0.00 - 0.03 X10*3/uL [facility] Lymphocytes Absolute Auto 2.1 1.2 - 4.9 X10*3/uL [facility] Monocytes Absolute Auto 0.5 0.1 - 1.2 X10*3/uL [facility] Eosinophils Absolute Auto 0.4 0.0 - 0.4 X10*3/uL [facility] Basophils Absolute Auto 0.1 0.0 - 0.2 X10*3/uL [facility] NRBC Abs Auto 0.000 0.0 - 0.012 X10*3/uL [facility] 01/28/2025 7:52 AM EDT 01/28/2025 7:56 AM EDT Generic External Data Provider LAB BLOOD ORDERAB LES Final Result [facility] [address] [place] [phone] * hCG, Total, Quantitative (01/28/2025 7:52 AM EDT) HCG Quantitative <2 mIU/mL [facility] Comment:Weeks post LMP Appro ximate hCG(Last Menstrual Period) Range (mIU/ml)3 - 4 weeks 9 - 1304 - 5 weeks 75 - 2,6005 - 6 weeks 850 - 20,8006 - 7 weeks 4000 - 100,2007 - 12 weeks 11,500 - 289,57783 - 16 weeks 18,300 - 137,76645 - 29 weeks (2nd trimester) 1,400 - 53,33911 - 41 weeks (3rd trimester) 940 - [...] Provider LAB BLOOD ORDERAB LES Final Result [facility] [address] [place] [phone] * (ABNORMAL) Comprehensive Metabolic Panel (01/28/2025 7:52 AM EDT) Sodium 139 135 - 145 mmol/L [facility] Potassium 3.4 3.3 - 5.1 mmol/L [facility] Chloride 109(H) 96 - 108 mmol/L [facility] Carbon Dioxide 21(L) 22 - 29 mmol/L [facility] Anion Gap 12 12 - 20 [facility] Urea Nitrogen (BUN) 18(H) 9 - 16 mg/dL [facility] Creatinine, Serum 0.97 0.5 - 1.4 mg/dL [facility] Creatinine Clr Calc Pharmacy 62.7 [facility] Comment:Provided height and weight: 149 cm,58.1 kg.eGFR (calculated from the MDRD study equation) and eCrCl(calculated from the Cockcroft-Gault equation) are based ondifferent parameters and may not yield comparable results.If eCrCl result is absurd, please check patient'sheight/weight. Estimated Glomerular Filt Rate >60 [facility] Comment:Chronic Kidney Disea se: Estimated GFR < 60 mL/min/1.56d7Xnbjat Kidney Disease: Estimated GFR < 15 mL/min/1.73m2 Glucose 132(H) 60 - 115 mg/dL [facility] Calcium 8.8 8.4 - 10.2 mg/dL [facility] Bilirubin, Total 0.4 0.0 - 1.0 mg/dL [facility] Aspartate Amino Transferase 25 5 - 31 U/L [facility] Alanine Aminotransferase 25 0 - 31 U/L [facility] Total Protein 7.6 6.5 - 8.0 g/dL [facility] Albumin Level 4.6 3.5 - 5.0 g/dL [facility] Alkaline Phosphatase 96 39 - 117 U/L [facility] 01/28/2025 7:52 AM EDT 01/28/2025 7:56 AM EDT Generic External Data Provider LAB BLOOD ORDERAB LES Final Result Performing Organization Address [facility]/ZIP Co de Phone Number [facility] [address] [place] [phone] * Hepatitis C Antibody with Reflex to HCV, RNA, Quantitative, Real-Time PCR (08/07/2024 12:19 PM EDT) Hepatitis C Antibody Nonreactive Nonreactive [facility] Comment:Antibodies to HCV no t detected; does not exclude early acuteHCV infection. Blood Venous blood specimen / Unknown 08/07/2024 12:19 PM EDT 08/07/2024 1:32 PM EDT [facility] LAB BLOOD ORDERABLES Nevaeh l Result Performing Organization Address [facility]/ZIP Co de Phone Number [facility] [address] [place] [phone] * HIV-1/2 Antigen and Antibodies, Fourth Generation, with Reflexes (08/07/2024 12:19 PM EDT) HIV AB/AG Nonreactive Nonreactive [facility] Comment:HIV-1 p24 Ag and/or HIV-1/HIV-2 Ab not detected.A test result that is nonreactive does not exclude thepossibility of exposure to or infection with HIV-1 and/orHIV-2. Nonreactive results in this assay for individualswith prior exposure to HIV-1 and/or HIV-2 may be due toantigen and antibody levels that are below the limit ofdetection of this assay.The [id number] HIV Ag/Ab Combo assay result andsupplemental assay results should be interpreted inconjunction with the patient's clinical presentation,history and other laboratory results. If the results areinconsistent with clinical evidence, additional testing issuggested to confirm the result. Blood Venous blood specimen / Unknown 08/07/2024 12:19 PM EDT 08/07/2024 1:32 PM EDT Jose J Bradford [employer]UM[employer] OFFICER LAB BLOOD ORDERABLES Nevaeh quick Result [facility] [address] [place] [phone] * HM PAP/HPV (08/07/2024) Pap Smear 1. NILM 1. NILM HPV Not Detected Undetected, Indeterminat e, Quantitative , Not Detected Historical Provider HEALTH MAINTENANCE Edited Result - Final from Last 3 Months or Most Recently Relevant to Health Maintenance Insurance [facility] C3 DENTAL-[facility] MEDICAID LIMITED ADULT DENTAL - HSN FULL (MEDICAID) Care Teams Ceramic Maker Demonstrator Relationship Specialty Start Date End Date Jose J Bradford CNP PCP - General Family Medicine 07/31/24
--- NOTE | 2025-03-25 09:14 | ED_ITS ---
HPI - General Adult General Chief complaint: Upper Respiratory Symptoms Stated complaint: chest pain sore throat cold Time Seen by Provider: 03/25/25 09:03 Source: patient Mode of arrival: ambulatory Limitations: no limitations History of Present Illness ED Provider: TORI CASTRO PA-C HPI narrative: 34 year old female with pmhx significant for asthma presents to the ED today for evaluation of cough and associated chest discomfort and myalgias on waking this morning. She has not had to use her inhaler over the last few days. No SOB/wheezing. 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 Denies fever/chills, sore throat. Related Data Previous Rx's ?Medication ?Instructions ?Recorded benzonatate 200 mg capsule 200 mg PO TID PRN cough #20 caps 04/10/21 fluticasone propionate 50 2 spray intranasal DAILY #16 grams 04/10/21 mcg/actuation nasal spray,suspension (Flonase Allergy Relief) pantoprazole 40 mg tablet,delayed 40 mg PO DAILY #14 t abs 08/28/21 release (Protonix) ondansetron 4 mg disintegrating 4 mg PO Q8H PRN N/V #1 4 tabs 10/13/21 tablet pantoprazole 40 mg tablet,delayed 40 mg PO DAILY GERD #30 tabs 10/13/21 release (Protonix) prednisone 20 mg tablet 40 mg (2 x 20 mg) PO DAILY # 8 tabs 03/10/22 aoqqucrtgt-hafsdxlvktpld-hvtvfuiy 1 tab PO Q6H PRN hae adace #20 tabs 11/14/23 50 mg-325 mg-40 mg tablet albuterol sulfate 90 mcg/actuation 2 puff inhalation Q 6H PRN 10/17/24 aerosol inhaler (Ventolin HFA) shortness of breath or wheezing #8.5 grams prednisone 20 mg tablet 40 mg (2 x 20 mg) PO DAILY # 10 tabs 10/17/24 prednisone 20 mg tablet 40 mg (2 x 20 mg) PO DAILY C OPD 01/28/25 exacerbation 5 days #10 tabs benzonatate 100 mg capsule 100 mg PO BID PRN cough #20 caps 03/25/25 Allergies Allergy/AdvReac Type Severity Reaction Status Date / Time No Known Allergies Allergy Verified 03/25/25 08:02 Review of Systems Review of Systems: Yes all other systems are reviewed and are negative [facility] Past Medical History Attestation statement: The following information was validated with the patient. Source: old records reviewed and nursing notes reviewed Medical History No known health problems Social History Social History Alcohol intake: current Alcohol intake frequency: holidays/special occasions only Alcohol type: beer Patient Tobacco Use Status: Never used Tobacco Advance Directives: No Advance Directives Information Provided: Yes Physical Exam ED Vital Signs: Vital Signs - 24 hr 03/25/25 08:00 Temperature 98.8 F Pulse Rate 95 Respiratory Rate 16 Blood Pressure 130/66 Pulse Oximetry 97 Oxygen Delivery Method Room Air BMI result Body Mass Index 29.6 Vital signs stable General: Well appearing, in no acute distress. Skin: Warm, dry, intact. No rashes or lesions. Head: Normocephalic, atraumatic. EENT: Hearing is intact b/l. Conjunctiva clear. PERRLA. EOM intact. Moist mucous membranes.? Posterior oropharynx without erythema or edema, no tonsillar exudates, no peritonsillar masses, uvula midline, controlling secretions, speaking complete sentences. Cardiac: Chest wall symmetric. RRR. Lungs: Hoarse voice, bronchospastic cough. No respiratory distress or tripoding. Lungs CTA bilaterally. Neuro: AOx3. Normal speech. CN 2-12 grossly intact. Strength 5/5 intact throughout. No saddle anesthesia. Sensation intact to light touch. NV intact distally. Ambulating with steady gait. Psych: Appropriate mood and affect. Responds appropriately to questions. Course Course Course Narrative: Negative COVID, flu. Chest x-ray without infiltrate or consolidation to suggest pneumonia. Patient's presentation is consistent with a viral upper respiratory infection. Will send Chato Garrison to pharmacy. Patient has remained stable throughout ED visit today. Discussed worrisome signs and symptoms and when to return to the ED. All questions answered at this time. Patient is agreeable with disposition and stable for discharge. Medical Decision Making Medical Decision Making MDM Narrative: 34 year old female with pmhx significant for asthma presents to the ED today for evaluation of cough and associated chest discomfort and myalgias on waking this morning. Vital signs are stable. She is afebrile. Not hypoxic or tachycardic. Hoarse voice, bronchospastic cough. No respiratory distress or tripoding. Lungs are CTA bilaterally. Posterior oropharynx without erythema or edema, no tonsillar exudates or peritonsillar masses, uvula midline, controlling secretions and speaking complete sentences. Differential diagnosis includes viral syndrome, asthma exacerbation, bronchitis, pneumonia. Unlikely PE, ACS. PERC 0. EKG, viral swabs, cxr ordered from triage. plan to review. Differential Diagnosis Differential Diagnoses: The differential diagnosis associated with the presentation includes as above. Admission/Observation Not indicated Lab Data MDM Lab Attestation statement: I reviewed the patient's lab results. As above Labs: Lab Results 03/25/25 Range/Units 08:21 COVID-19 (LATOYA) Negative (Negative) COVID-19 Clin Com See Note Influenza Type A (KANIKA) Negative (Negative) Influenza Type B (KANIKA) Negative (Negative) Influenza A & B Note See Note Independent Interpretation I performed an independent interpretation of an: EKG and Plain X-Ray Interpretation: Chest x-ray without infiltrate or consolidation EKG showing normal sinus rhythm, rate of 90 beats per minute, no acute ischemic changes or ST elevations Radiology Impression Discussion of test interpretation with radiology: I have reviewed the radiologist's reading. Radiologist Impression: Procedure(s): XR chest 2V Accession Number(s): [id number] cc: Della Kim; Jose J Bradford NP~ Reason for Exam: cough EXAMINATION: XR CHEST 2 VIEWS HISTORY: cough COMPARISON: Comparison is made with the prior examination dated 01/28/2025. FINDINGS: PA and lateral views of the chest are submitted. The lungs are expanded and clear. There is no pleural effusion, pneumothorax, or pulmonary vascular congestion. The heart is normal in size. The bones are intact. XR/XR chest 2V IMPRESSION: No acute cardiopulmonary abnormality. Electronically signed by: Kvng Alvarado MD 03/25/2025 08:19 AM EDT External Record Review External record reviewed: Inpatient record Prescription Management I considered prescription management with: Other (Tessalon Perles) Chronic Conditions Patient?s care impacted by: Other (Asthma) Social Determinants Patient?s care significantly limited by Social Determinants of Health including: Other Social Determinant of Health Critical Care Time Critical Care Time Critical Care Time: No Discharge Plan Discharge Clinical Impression: Viral infection Patient Disposition: Home, Self-Care Instructions: Viral Syndrome (ED) Additional Instructions: You tested negative for covid and flu. Your chest x-ray is normal - no evidence of pneumonia. You likely have a viral upper respiratory infection that does not require antibiotic treatment. Chato Garrison have been sent to your pharmacy for you to take as needed for cough. Alter ibuprofen and Tylenol for fevers and body aches. Follow-up with PCP. Return with any new or worsening symptoms. The case of an emergency call 911. Prescriptions: New benzonatate 100 mg capsule 100 mg PO BID PRN (Reason: cough) Qty: 20 0RF No Action benzonatate 200 mg capsule 200 mg PO TID PRN (Reason: cough) Qty: 20 0RF fluticasone propionate [Flonase Allergy Relief] 50 mcg/actuation spray,suspension 2 spray intranasal DAILY Qty: 16 0RF Rx Instructions: administer into each nostril pantoprazole [Protonix] 40 mg tablet,delayed release (DR/EC) 40 mg PO DAILY Qty: 14 0RF pantoprazole [Protonix] 40 mg tablet,delayed release (DR/EC) 40 mg PO DAILY Qty: 30 0RF ondansetron 4 mg tablet,disintegrating 4 mg PO Q8H PRN (Reason: N/V) Qty: 14 0RF prednisone 20 mg tablet 40 mg PO DAILY Qty: 8 0RF njxsafnnhy-huammkojwcycj-yrpx 50-325-40 mg tablet 1 tab PO Q6H PRN (Reason: haeadace) Qty: 20 0RF albuterol sulfate [Ventolin HFA] 90 mcg/actuation HFA aerosol inhaler 2 puff inhalation Q6H PRN (Reason: shortness of breath or wheezing) Qty: 8.5 0RF prednisone 20 mg tablet 40 mg PO DAILY Qty: 10 0RF prednisone 20 mg tablet 40 mg PO DAILY 5 Days Qty: 10 0RF Referrals: Jose J Bradford DELIVERY ROOM SUPERVISOR [Primary Care Provider, Primary Care] Print Language: Spanish
[2025-03-25 09:22] VITALS: BP 130/66; PULSE 95; RESP 16; TEMP 37.1; O2SAT 97
== END 2025-03-25 09:22 | disposition home or self-care (01) ==
PROVIDERS: Physician Assistant Medical; Emergency Provider Emergency Medicine
DX: B34.9 Viral infection, unspecified (principal); R05.9 Cough, unspecified; R07.9 Chest pain, unspecified; Z03.818 Encounter for observation for suspected exposure to other biological agents ruled out
CPT/HCPCS: 71046; 87502; 87635; 93005; 99283

== ENCOUNTER → 2025-03-25 07:59 | Outpatient (BNV) | payer MEDICAID, SELFPAY | PROVIDERS: Emergency Provider Emergency Medicine; Visit Provider Internal Medicine | DX: R07.9 Chest pain, unspecified (principal) | CPT/HCPCS: 93010 ==

== ENCOUNTER → 2025-03-25 08:04 | Outpatient (BNV) | payer MEDICAID, SELFPAY | PROVIDERS: Visit Provider Radiology Diagnostic Radiology | DX: R05.9 Cough, unspecified (principal) | CPT/HCPCS: 71046 ==

== ENCOUNTER 2025-04-25 15:02 | Emergency (ER) | payer MEDICAID, SELFPAY ==
--- NOTE | ~2025-04-25 | XR_ITS ---
CLINICAL HISTORY: cough 2 view chest x-ray Comparison: CR/SR - XR CHEST 2 VIEWS - 03/25/2025 08:16 AM EDT Findings: No consolidation or effusion. Normal size heart. No acute fracture. IMPRESSION: 1. No acute findings. This document has been electronically signed by: Miquel Downs MD on 04/25/2025 17:40:13
--- NOTE | 2025-04-25 15:03 | ECG_ITS ---
Test Reason : cp Blood Pressure : */* mmHG Vent. Rate : 104 BPM Atrial Rate : 104 BPM P-R Int : 116 ms QRS Dur : 66 ms QT Int : 336 ms P-R-T Axes : 75 17 21 degrees QTcB Int : 441 ms Sinus tachycardia Otherwise normal ECG When compared with ECG of 25-Mar-2025 08:16, No significant change was found Referred By: Generic ED Physician Electronically Signed By: ISRAEL GONZALEZ
[2025-04-25 15:17] VITALS: BP 134/89; PULSE 94; RESP 16; TEMP 36.6; O2SAT 96; BMI 27.0
--- NOTE | 2025-04-25 15:27 | ED_ITS ---
HPI - General Adult General Chief complaint: Upper Respiratory Symptoms Stated complaint: chest pain, sob Time Seen by Provider: 04/25/25 21:52 Source: patient Mode of arrival: ambulatory Limitations: no limitations History of Present Illness ED Provider: Dr. Nedra Duncan HPI narrative: Patient comes to the emergency room complaining of cough, runny nose, mild headache, denies fever or chills. Related Data Previous Rx's ?Medication ?Instructions ?Recorded benzonatate 200 mg capsule 200 mg PO TID PRN cough #20 caps 04/10/21 fluticasone propionate 50 2 spray intranasal DAILY #16 grams 04/10/21 mcg/actuation nasal spray,suspension (Flonase Allergy Relief) pantoprazole 40 mg tablet,delayed 40 mg PO DAILY #14 t abs 08/28/21 release (Protonix) ondansetron 4 mg disintegrating 4 mg PO Q8H PRN N/V #1 4 tabs 10/13/21 tablet pantoprazole 40 mg tablet,delayed 40 mg PO DAILY GERD #30 tabs 10/13/21 release (Protonix) prednisone 20 mg tablet 40 mg (2 x 20 mg) PO DAILY # 8 tabs 03/10/22 aenkpjpxtj-ycozgxvhgibxa-kskizbhk 1 tab PO Q6H PRN hae adace #20 tabs 11/14/23 50 mg-325 mg-40 mg tablet albuterol sulfate 90 mcg/actuation 2 puff inhalation Q 6H PRN 10/17/24 aerosol inhaler (Ventolin HFA) shortness of breath or wheezing #8.5 grams prednisone 20 mg tablet 40 mg (2 x 20 mg) PO DAILY # 10 tabs 10/17/24 prednisone 20 mg tablet 40 mg (2 x 20 mg) PO DAILY C OPD 01/28/25 exacerbation 5 days #10 tabs benzonatate 100 mg capsule 100 mg PO BID PRN cough #20 caps 03/25/25 doxylamin 12.5 mg-PSE 10 mg-DM 20 1 packet PO Q4H PRN flu symptoms 04/25/25 mg-acetaminophen 650 mg oral pwdr #6 ea pk ([place] Plus Cold-Flu) ibuprofen 600 mg tablet 600 mg PO Q8H PRN fever or p ain 04/25/25 #20 tabs Allergies Allergy/AdvReac Type Severity Reaction Status Date / Time No Known Allergies Allergy Verified 04/25/25 15:18 Review of Systems Review of Systems: Constitutional : No Weight loss, No Fever, No Chills, No Night Sweats, No Fatigue, No Malaise ENT/Mouth : No Hearing loss, No Ear Pain, complaining of mild nasal congestion, no sinus pain, complaining of mild runny nose Eyes: No Eye Pain, No Swelling, No Redness, No Foreign Body, No Discharge, No Vision Changes Cardiovascular : Occasional chest pain with deep inhalation, No SOB, No Dyspnea on Exertion, No Orthopnea, No Edema, No Palpitations Respiratory : No Cough, No Sputum, No Wheezing, No Smoke Exposure, No Dyspnea Gastrointestinal : No Nausea, No Vomiting, No Diarrhea, No Constipation, No abdominal Pain, No Hematochezia, No Melena Genitourinary : no irregular bleeding, No Dysuria, No Urinary Frequency, No Hematuria, No Urinary Incontinence, No Urgency, No Flank Pain, No Urinary Flow Changes, No Hesitancy Musculoskeletal : No joint pain, No Myalgias, No Joint Swelling Skin : No Skin Lesions, No rash Neuro : No Weakness, No Numbness, No Paresthesias, No Loss of Consciousness, No Dizziness, No Headache Psych : No Anxiety/Panic, No Depression, No SI/HI/AH/VH, No Social Issues, Heme/Lymph: No Bruising, No Bleeding,No Lymphadenopathy Endocrine : No Polyuria, No Polydipsia, No Temperature Intolerance [facility] Past Medical History Medical History No known health problems Social History Social History Alcohol intake: current Alcohol intake frequency: holidays/special occasions only Alcohol type: beer Patient Tobacco Use Status: Never used Tobacco Smoked in Last 30 Days: No Use of substances other than those prescribed or required for medical reasons: No Advance Directives: No Advance Directives Information Provided: No Physical Exam ED Exam Exam: Appearance: Alert. Oriented X3. No acute distress. Eyes: Pupils equal, round and reactive to light. ENT: Pharynx normal. Neck: Normal inspection. Neck supple. No lymph nodes noted. No crepitus CVS: Normal heart rate and rhythm. Pulses normal. Normal S1 and S2 Respiratory: No respiratory distress. Breath sounds normal. No Wheezing. No rales Abdomen: Soft and nontender. No rigidity. No distention. Skin: Skin warm and dry. Normal skin color. Normal skin turgor. Extremities: No lower extremity edema. No Lacerations. No Rash Neuro: Oriented X 3. No motor deficit. No sensory deficit. Moving all extremities. No slurred speech. CN 2 through 12 grossly intact Psych: calm, cooperative, normal affect Vital Signs: Vital Signs - 24 hr 04/25/25 15:17 04/25/25 22:47 04/25/25 22:47 Temperature 97.9 F 97.9 F 97.9 F Pulse Rate 94 94 94 Respiratory Rate 16 16 16 Blood Pressure 134/89 134/90 H 134/90 H Pulse Oximetry 96 99 99 Oxygen Delivery Method Room Air Room Air Room Air BMI result Body Mass Index 27.0 Course Course Course Narrative: Medical screening exam performed. Please refer to detailed history, exam, evaluation, and management by primary provider. URI symptoms, cough. Medications Administered Discontinued Medications Generic Name Dose Route Start Last Admin Trade Name Freq PRN Reason Stop Dose Admin Ketorolac Tromethamine 60 mg 04/25/25 22:01 04/25/25 22:11 Ketorolac Tromethamine 60 Mg/2 Ml Vial IM 04/25/25 22:02 60 mg ONCE ONE Administration Medical Decision Making Medical Decision Making [facility] Narrative: My interpretation of labs: Patient tested negative for influenza a, influenza B and COVID Chest x-ray negative My interpretation of EKG: Normal sinus rhythm, heart rate 104, no ST segment depression or elevation, no T-wave inversion, QTC 441 Vitals stable, no tachycardia, no oxygen desaturation Lab Data [facility] Lab Attestation statement: I reviewed the patient's lab results. Labs: Lab Results 04/25/25 Range/Units 15:45 COVID-19 (LATOYA) Negative (Negative) COVID-19 Clin Com See Note Influenza Type A (KANIKA) Negative (Negative) Influenza Type B (KANIKA) Negative (Negative) Influenza A & B Note See Note Independent Interpretation I performed an independent interpretation of an: Plain X-Ray Radiology Impression Discussion of test interpretation with radiology: I have reviewed the radiologist's reading. Radiologist Impression: No consolidation or effusion. Normal size heart. No acute fracture. IMPRESSION: 1. No acute findings. Discharge Plan Discharge Clinical Impression: Upper respiratory infection Patient Disposition: Home, Self-Care Instructions: Upper Respiratory Infection (ED) Additional Instructions: Please follow-up with your primary care physician tomorrow. If you have any worsening or new symptoms, please return to the emergency room or call 911 Prescriptions: Wilfred [place] Plus Cold-Flu 12.5-10-20-650 mg powder in packet 1 packet PO Q4H PRN (Reason: flu symptoms) Qty: 6 1RF Rx Instructions: DNExceed 5 doses/24h ibuprofen 600 mg tablet 600 mg PO Q8H PRN (Reason: fever or pain) Qty: 20 0RF No Action benzonatate 200 mg capsule 200 mg PO TID PRN (Reason: cough) Qty: 20 0RF fluticasone propionate [Flonase Allergy Relief] 50 mcg/actuation spray,suspension 2 spray intranasal DAILY Qty: 16 0RF Rx Instructions: administer into each nostril pantoprazole [Protonix] 40 mg tablet,delayed release (DR/EC) 40 mg PO DAILY Qty: 14 0RF pantoprazole [Protonix] 40 mg tablet,delayed release (DR/EC) 40 mg PO DAILY Qty: 30 0RF ondansetron 4 mg tablet,disintegrating 4 mg PO Q8H PRN (Reason: N/V) Qty: 14 0RF prednisone 20 mg tablet 40 mg PO DAILY Qty: 8 0RF benzonatate 100 mg capsule 100 mg PO BID PRN (Reason: cough) Qty: 20 0RF xrfrnrgfjp-jakmgfbuumlcs-pnfm 50-325-40 mg tablet 1 tab PO Q6H PRN (Reason: haeadace) Qty: 20 0RF albuterol sulfate [Ventolin HFA] 90 mcg/actuation HFA aerosol inhaler 2 puff inhalation Q6H PRN (Reason: shortness of breath or wheezing) Qty: 8.5 0RF prednisone 20 mg tablet 40 mg PO DAILY Qty: 10 0RF prednisone 20 mg tablet 40 mg PO DAILY 5 Days Qty: 10 0RF Stand Alone Forms: Work/School Release Interventions: ED Discharge Assessment Last Done: 04/25/25 22:47 Discharge Date/Time: 04/25/25 22:49 Print Language: Korean
[2025-04-25 16:09] LABS: COVID-19 Test Negative (Negative); IDNOW Serial# 58CA691E
[2025-04-25 16:24] LABS: IDNOW Serial# 55D5AD1C; Influenza B2 Negative (Negative)
--- NOTE | 2025-04-25 20:25 | PC.NURSE ---
Pt a&ox4, no signs of distress. Pt resting in bed talking on the phone Pt reports 10/10 body aches and sternal pain that worsens with coughing with onset x1 day, no sick contacts Plan of care ongoing.
--- NOTE | 2025-04-25 22:15 | PC.NURSE ---
Pt medicated per [facility] Plan of care ongoing.
[2025-04-25 22:47] VITALS: BP 134/90; PULSE 94; RESP 16; TEMP 36.6; O2SAT 99
== END 2025-04-25 22:49 | disposition home or self-care (01) ==
PROVIDERS: Physician Assistant; Emergency Provider Emergency Medicine
DX: J06.9 Acute upper respiratory infection, unspecified (principal)
CPT/HCPCS: 71046; 87502; 87635; 93005; 96372; 99284; 99285; J1885

== ENCOUNTER → 2025-04-25 15:03 | Outpatient (BNV) | payer MEDICAID, SELFPAY | PROVIDERS: Emergency Provider Emergency Medicine; Visit Provider Internal Medicine | DX: R00.0 Tachycardia, unspecified (principal) | CPT/HCPCS: 93010 ==

== ENCOUNTER → 2025-04-25 15:28 | Outpatient (BNV) | payer MEDICAID, SELFPAY | PROVIDERS: Visit Provider Radiology Diagnostic Radiology | DX: R05.9 Cough, unspecified (principal) | CPT/HCPCS: 71046 ==